=== PATIENT | male | born 1940 | race Caucasian/White ===

== ENCOUNTER → 2018-03-09 08:49 | Outpatient (CLI) | payer MEDICARE, OTHER, SELFPAY ==
--- NOTE | 2018-03-16 11:00 | PM.PFT.1 ---
Pulmonary Function Test Referral & Results Date Patient Seen: 03/09/18 Requesting provider: Marvin Bruce Results: The spirometry demonstrates an FVC of 2.20 L which is 51% of predicted. The FEV1 was measured at 1.52 L which is 40% of predicted. The FEV1/FVC ratio was 69 which is 95% of predicted. Following the administration of bronchodilator there was a 21% improvement in FEV1 and a 97% improvement in FEF 25-75%. Lung volumes show an SVC of 2.75 L which is 59% of predicted. The diffusing capacity was measured at 15.5 for which is 46% of predicted. No hemoglobin value was provided, so no correction for potential anemia could be made, if appropriate. The maximum voluntary ventilation was slightly reduced. Interpretation: This study demonstrates moderately severe obstructive lung disease with evidence of some significant benefit following bronchodilator administration There is also moderately severe restrictive lung disease present There is also a significant reduction in diffusing capacity as above. This suggest significant disease at the capillary alveolar level. Compared to PFTs performed in February 2017, spirometry is essentially unchanged as is diffusing capacity.
== END ==
PROVIDERS: Family Provider Family Medicine; PCP Family Medicine; Visit Provider Family Medicine
DX: Z79.899 Other long term (current) drug therapy (principal)
CPT/HCPCS: 94010; 94060; 94726; 94729

== ENCOUNTER 2018-07-17 08:04 | Observation (INO) | payer MEDICARE, OTHER, SELFPAY ==
[2018-07-17] VITALS (15 sets, daily range): BP systolic 121–156; BP diastolic 75–93; PULSE 67–82; RESP 16–30; TEMP 36.1–37; O2SAT 89–100; BMI 27.3
--- NOTE | 2018-07-17 08:05 | ED.SOB ---
HPI - SOB/Dyspnea General Chief Complaint: Shortness of Breath/Dyspnea Stated Complaint: SHORTNESS OF BREATH Time Seen by Provider: 07/17/18 08:05 Source: patient Mode of arrival: ambulatory Limitations: no limitations History of Present Illness 78-year-old male with a history of coronary artery disease with a 6 vessel coronary artery bypass graft, persistent AFib with a pacemaker in place on Coumadin, and also history of pleural effusions of an unknown etiology here for evaluation of approximately 1-1.5 weeks of worsening shortness of breath and decreased exercise tolerance. Patient states that last evening his symptoms worsened. He became short of breath. Is not having any chest pain. States that he has had multiple thoracentesis in the past with the last 1 being in May And this was on the right side. Patient states that his symptoms are consistent with his pleural effusions. Related Data Home Medications Medication Instructions Recorded Confirmed atorvastatin [Lipitor] 40 mg OR Q DAY #0 08/19/16 03/29/18 cyanocobalamin (vitamin B-12) 500 mcg OR Q DAY #0 08/19/16 03/29/18 isosorbide mononitrate 30 mg OR HS #0 08/19/16 03/29/18 nitroglycerin [Nitrostat] PRN #0 08/19/16 03/29/18 spironolactone [Aldactone] 12.5 mg PO QDAY #0 03/07/17 07/17/18 warfarin [Coumadin] 1 tab PO QPM #0 03/07/17 03/29/18 FERROUS SULFATE 325 mg PO QDAY #0 12/28/17 03/29/18 aspirin 81 mg PO QDAY #0 12/28/17 03/29/18 carvedilol [Coreg] 6.25 mg PO BID #0 12/28/17 03/29/18 lisinopril 2.5 mg PO BID #0 12/28/17 03/29/18 multivitamin [Multiple Vitamins] 1 tab PO QDAY #0 12/28/17 03/29/18 omeprazole 20 mg PO QDAY #0 12/28/17 03/29/18 albuterol sulfate [Ventolin HFA] 07/17/18 ferrous sulfate 1 tab PO DAILY 07/17/18 07/17/18 fluticasone [Flovent HFA] 07/17/18 furosemide 1 tab PO DAILY 07/17/18 07/17/18 terazosin 1 cap PO DAILY 07/17/18 07/17/18 Previous Rx's Medication Instructions Recorded furosemide [Lasix] 80 mg PO QDAY #30 tab 12/31/17 Allergies Allergy/AdvReac Type Severity Reaction Status Date / Time No Known Allergies Allergy Uncoded 02/01/18 12:38 Review of Systems Constitutional Denies fatigue, Denies fever(s) and Denies headache(s) ENT Ears, Nose, Mouth, and Throat: Denies headache(s) Cardiovascular Denies chest pain, Denies chest pain with activity, Denies diaphoresis, Denies pedal edema, Denies edema, Denies irregular heart rhythm, Denies leg edema, Denies lightheadedness, Reports dyspnea and Reports orthopnea Respiratory Reports cough, Reports dyspnea and Reports wheezing Gastrointestinal Gastrointestinal: Denies abdominal pain, Denies dyspepsia, Denies diarrhea, Denies nausea and Denies vomiting Genitourinary Denies dysuria and Denies flank pain Musculoskeletal Denies myalgias and Denies deformity Integumentary/Breasts Denies lesions and Denies rash Neurologic Denies headache(s) Endocrine Denies fatigue Hematologic/Lymphatic Denies easy bleeding and Denies easy bruising Allergic/Immunologic Reports wheezing PFSH Medical History Afib (Acute) CAD (coronary atherosclerotic disease) (Acute) Pleural effusion (Acute) Surgical History Hx of CABG (Acute) Social History Smoking Status: Never smoker Exam Initial Vital Signs Initial Vital Signs: Vital Signs Temperature 97.3 F L 07/17/18 08:20 Pulse Rate 82 07/17/18 08:20 Respiratory Rate 30 H 07/17/18 08:20 Blood Pressure 135/84 07/17/18 08:20 Pulse Oximetry 89 L 07/17/18 08:20 Const General: cooperative, healthy appearing, comfortable, well developed, well groomed and No acute distress Orientation: alert, awake and oriented x3 HENMT Head: normal to inspection and normocephalic Ears: hearing grossly normal bilaterally Resp Effort & Inspection: respiratory effort not decreased, not labored, respiratory distress, no stridor, tachypneic and no tripod positioning Auscultation: other ( decreased breath sounds on the right) Cardio Rate: regular rate Rhythm: regular rhythm Pulses: radial pulses present GI Inspection: non-distended Palpation: soft and No tender Skin Lesions: no lesions Rashes: no rashes Neuro General: alert, awake and oriented x3 Extrem General: No edema Psych Appearance: grossly normal and well kempt Course Orders Ordered: ED Orders 07/17/18 08:08 XR chest 1V Stat EKG-12 Lead Stat RT Consult Eval and Treat Now 07/17/18 08:15 B Type Natriuretic Peptide Stat Complete Blood Count AUTO DIFF Stat Comprehensive Metabolic Panel Stat Lipase Stat Procalcitonin Stat Troponin I Stat 07/17/18 08:51 Partial Thromboplastin Time Stat Prothrombin Time INR Stat Vital Signs - 8 hr 07/17/18 08:20 07/17/18 08:34 07/17/18 09:01 Temperature 97.3 F L Pulse Rate 82 80 80 Respiratory Rate 30 H 26 H 16 Blood Pressure 135/84 Blood Pressure [Right Arm] 124/83 121/75 Pulse Oximetry 89 L 96 96 MDM - SOB/Dyspnea Lab Data Attestation: I reviewed the patient's lab results. Result diagrams: 07/17/18 08:15 07/17/18 08:15 Lab Results 07/17/18 07/17/18 07/17/18 Range/Units 08:15 08:15 08:15 WBC 5.1 (4.5-11.0) X10^3/uL RBC 5.10 (4.5-5.9) X10^6/uL Hgb 14.5 (13.5-17.5) g/dL Hct 44.6 (41-53) % MCV 87.6 (80-100) fL MCH 28.4 (26-34) PG MCHC 32.4 (30-36) % RDW 17.0 H (11.6-14.8) % Plt Count 246 (150-400) X10^3/uL Neut % (Auto) 60.7 (50-75) % Lymph % (Auto) 18.0 L (25-40) % [place] % (Auto) 13.6 (3-14) % Eos % (Auto) 6.4 H (2-4) % Baso % (Auto) 1.3 (0-2) % Neut # (Auto) 3100 (7185-5714) /uL PT (10.1-12.7) SECONDS INR (0.9-1.3) APTT (26.4-36.2) SECONDS Sodium 144 (137-145) mmol/L Potassium 3.4 (3.4-5.1) mmol/L Chloride 102 (98-107) mmol/L Carbon Dioxide 30 (22-32) mmol/L BUN 34 H (9-20) mg/dL Creatinine 2.00 H (0.66-1.25) mg/dL Estimated GFR 32.6 L (>60) mL/min BUN/Creatinine Ratio 17.0 (6-22) Glucose 137 H (80-110) mg/dL Calcium 8.9 (8.4-10.2) mg/dL Total Bilirubin 1.5 H (0.2-1.3) mg/dL AST 34 (17-59) IU/L ALT 25 (21-72) IU/L Alkaline Phosphatase 149 H (38-126) U/L Troponin I 0.037 H (0.01-0.034) ng/mL B-Natriuretic Peptide 1340.0 H (<100) Total Protein 7.2 (6.3-8.2) g/dL Albumin 3.8 (3.5-5.0) g/dL Globulin 3.4 (1.7-4.1) g/dL Albumin/Globulin Ratio 1.1 (1.0-2.8) Lipase 59 (23-300) U/L Procalcitonin 0.06 (<0.5) ng/mL 07/17/18 Range/Units 08:51 WBC (4.5-11.0) X10^3/uL RBC (4.5-5.9) X10^6/uL Hgb (13.5-17.5) g/dL Hct (41-53) % MCV (80-100) fL MCH (26-34) PG MCHC (30-36) % RDW (11.6-14.8) % Plt Count (150-400) X10^3/uL Neut % (Auto) (50-75) % Lymph % (Auto) (25-40) % [place] % (Auto) (3-14) % Eos % (Auto) (2-4) % Baso % (Auto) (0-2) % Neut # (Auto) (5345-8513) /uL PT 22.2 H (10.1-12.7) SECONDS INR 2.0 H (0.9-1.3) APTT 36 (26.4-36.2) SECONDS Sodium (137-145) mmol/L Potassium (3.4-5.1) mmol/L Chloride (98-107) mmol/L Carbon Dioxide (22-32) mmol/L BUN (9-20) mg/dL Creatinine (0.66-1.25) mg/dL Estimated GFR (>60) mL/min BUN/Creatinine Ratio (6-22) Glucose (80-110) mg/dL Calcium (8.4-10.2) mg/dL Total Bilirubin (0.2-1.3) mg/dL AST (17-59) IU/L ALT (21-72) IU/L Alkaline Phosphatase (38-126) U/L Troponin I (0.01-0.034) ng/mL B-Natriuretic Peptide (<100) Total Protein (6.3-8.2) g/dL Albumin (3.5-5.0) g/dL Globulin (1.7-4.1) g/dL Albumin/Globulin Ratio (1.0-2.8) Lipase (23-300) U/L Procalcitonin (<0.5) ng/mL Imaging Data Chest x-ray: Radiologist's impression: PROCEDURE: XR CHEST 1V INDICATIONS: SOB TECHNIQUE: One view of the chest was acquired. COMPARISON: [facility], CR, XR CHEST 2 VIEWS, 06/16/2018, 10:37. [facility], , CHEST 1 VIEW, 02/04/2018, 22:12. FINDINGS: Surgical changes and devices: Pacemaker and sternal wires are again noted. Lungs and pleura: Bilateral pleural effusions as well as bibasilar opacities and increased pulmonary vascularity are again noted. Effusions are mildly increased particularly on the left compared to prior exam. Mediastinum: Mediastinal contours appear normal. Heart size is normal. Bones and chest wall: No suspicious bony lesions. Overlying soft tissues appear unremarkable. IMPRESSION: Increased vascular suggestive of edema with bilateral effusions and bibasilar opacities. As noted above, effusions demonstrate mild interval increase in size. Overlying opacities could represent atelectasis, focal edema or potentially developing airspace disease such as pneumonia. Dictated by: Roxanne Shelby M.D. on 07/17/2018 at 8:40 Approved by: Roxanne Shelby M.D. on 07/17/2018 at 8:4 ECG Data Attestation: I personally reviewed and interpreted this ECG as follows: Prior ECG tracings: not available for review Interpretation: Ventricularly paced ventricular rate at [address] T wave changes MDM Narrative Medical decision making narrative: patient clinically not in heart failure. Is not having any chest pain. Does have a slightly elevated troponin however no ischemic changes on his EKG. I discussed the case with Dr. Engel electronic instrument trades worker for cardiology is [facility]. He was able to look up the patient's past medical history. He stated that in this particular situation given the lack of ischemic changes on the EKG and no chest pain that they would recommend drainage of the pleural effusion 1st and continuing to trend the troponins. He stated that if his symptoms did not improve after these interventions that they would be happy to take him at [facility]. Also recommended trending the troponins. Patient with renal insufficiency however this is baseline for him. I discussed the admission with the patient. He expressed understanding and agreement with plan. Dr. Roberts will admit the patient Discharge Plan Departure Patient Disposition: Admitted As Inpatient Clinical Impression: Pleural effusion, Hypoxia, Chronic renal insufficiency Prescriptions: No Action atorvastatin [Lipitor] 40 MG tablet 40 mg OR Q DAY Qty: 0 RF: 0 cyanocobalamin (vitamin B-12) 1,000 MCG tablet extended release 500 mcg OR Q DAY Qty: 0 RF: 0 nitroglycerin [Nitrostat] 0.4 MG tablet, sublingual PRNQty: 0 RF: 0 isosorbide mononitrate 30 MG tablet extended release 24 hr 30 mg OR HS Qty: 0 RF: 0 warfarin [Coumadin] 2.5 MG tablet 1 tab PO QPM Qty: 0 RF: 0 spironolactone [Aldactone] 25 MG tablet 12.5 mg PO QDAY Qty: 0 RF: 0 lisinopril 2.5 MG tablet 2.5 mg PO BID Qty: 0 RF: 0 multivitamin [Multiple Vitamins] 1 EACH tablet 1 tab PO QDAY Qty: 0 RF: 0 omeprazole 20 MG capsule,delayed release(DR/EC) 20 mg PO QDAY Qty: 0 RF: 0 aspirin 81 MG tablet,delayed release (DR/EC) 81 mg PO QDAY Qty: 0 RF: 0 FERROUS SULFATE 325 mg PO QDAY Qty: 0 RF: 0 carvedilol [Coreg] 6.25 MG tablet 6.25 mg PO BID Qty: 0 RF: 0 furosemide [Lasix] 80 MG tablet 80 mg PO QDAY Qty: 30 RF: 0 furosemide 40 mg tablet 1 tab PO DAILY RF: 0 terazosin 1 mg capsule 1 cap PO DAILY RF: 0 ferrous sulfate 325 mg (65 mg iron) tablet 1 tab PO DAILY RF: 0 albuterol sulfate [Ventolin HFA] 90 mcg/actuation HFA aerosol inhaler RF: 0 fluticasone [Flovent HFA] 110 mcg/actuation HFA aerosol inhaler RF: 0
--- NOTE | 2018-07-17 08:08 | DI.RAD.S_ITS ---
PROCEDURE: XR CHEST 1V INDICATIONS: SOB TECHNIQUE: One view of the chest was acquired. COMPARISON: [facility], CR, XR CHEST 2 VIEWS, 06/16/2018, 10:37. [facility], CR, CHEST 1 VIEW, 02/04/2018, 22:12. FINDINGS: Surgical changes and devices: Pacemaker and sternal wires are again noted. Lungs and pleura: Bilateral pleural effusions as well as bibasilar opacities and increased pulmonary vascularity are again noted. Effusions are mildly increased particularly on the left compared to prior exam. Mediastinum: Mediastinal contours appear normal. Heart size is normal. Bones and chest wall: No suspicious bony lesions. Overlying soft tissues appear unremarkable. IMPRESSION: Increased vascular suggestive of edema with bilateral effusions and bibasilar opacities. As noted above, effusions demonstrate mild interval increase in size. Overlying opacities could represent atelectasis, focal edema or potentially developing airspace disease such as pneumonia. Dictated by: Roxanne Shelby M.D. on 07/17/2018 at 8:40 Approved by: Roxanne Shelby M.D. on 07/17/2018 at 8:42
[2018-07-17 08:30] LABS: Add Manual Diff / Slide Review NO; Basophils Percent Auto 1.3 % (0-2); Eosinophils Percent Auto 6.4 % (2-4); Hematocrit 44.6 % (41-53); Hemoglobin 14.5 g/dL (13.5-17.5); Mean Corpuscular HGB Conc 32.4 % (30-36); Mean Corpuscular Hemoglobin 28.4 PG (26-34); Mean Corpuscular Volume 87.6 fL (80-100); Monocytes Percent Auto 13.6 % (3-14); Neutrophils Absolute Auto 3100 /uL (3000-5900); Neutrophils Percent Auto 60.7 % (50-75); Platelet Count 246 X10^3/uL (150-400); White Blood Cell Count 5.1 X10^3/uL (4.5-11.0)
[2018-07-17 08:39] LABS: Alanine Aminotransferase 25 IU/L (21-72); Albumin 3.8 g/dL (3.5-5.0); Albumin Globulin Ratio 1.1 (1.0-2.8); Alkaline Phosphatase 149 U/L (38-126); Aspartate Aminotransferase 34 IU/L (17-59); Bilirubin Total 1.5 mg/dL (0.2-1.3); Blood Urea Nitrogen 34 mg/dL (9-20); Calcium 8.9 mg/dL (8.4-10.2); Carbon Dioxide 30 mmol/L (22-32); Chloride 102 mmol/L (98-107); Estimated Glomerular Filt Rate 32.6 mL/min (>60); Globulin 3.4 g/dL (1.7-4.1); Glucose 137 mg/dL (80-110); HEMOLYSIS < 15 (0-50); Lipase 59 U/L (23-300); Potassium 3.4 mmol/L (3.4-5.1); Sodium 144 mmol/L (137-145); Total Protein 7.2 g/dL (6.3-8.2)
[2018-07-17 08:50] LABS: Troponin I 0.037 ng/mL (0.01-0.034)
[2018-07-17 08:55] LABS: Procalcitonin 0.06 ng/mL (<0.5)
[2018-07-17 09:09] LABS: Prothrombin Time 22.2 SECONDS (10.1-12.7)
[2018-07-17 09:12] LABS: PTT Partial Thromboplastin Tim 36 SECONDS (26.4-36.2)
--- NOTE | 2018-07-17 11:06 | PC.NURSE ---
PT ADMITTED TO ROOM 101 TELE FLOOR CARE PT- HE HAS VERY DIMINISHED BREATH SOUNDS AND REPORTS FEELING EXACTLY THIS WAY PRIOR TO PREVIOUS THORACENTESIS ( TOTAL OF 7 PER PT) ELEVATED BNP AND REQUIRING 1-2 LITERS OF O2 TO MAINTAIN SPO2 OF 90%- CARDIAC RHYTHM IS AFIB WITH BBB AND FREQ PVC'S- ALSO REPORTS HAVING RECENT CARDIAC ABLATION AT [facility] ( [place])- DENIES PAIN AND IS SALINE LOCKED- FULLY ORIENTED TO BED CONTROL AND USE OF CALL LIGHT
--- NOTE | 2018-07-17 12:37 | PM.HP.1 ---
History of Present Illness Date Patient Seen: 07/17/18 Chief complaint: SHORTNESS OF BREATH Narrative: Patient has a history of ischemic cardiomyopathy, CAD s/p 6 vessel bipass, AICD/Pacer who has had recurent pleural effusions. He was symptomatic again with shortness of breath. Patient presented to the ED for evaluation and found to have a moderate left sided pleural effusion. Patient has had an extensive work up for this without obvious etiology. He is admitted for ultrasound guided thoracentsis. Patient is chronically on coumadin, his INR is elevated at 2.0, will give him VITK to reverse and schedule thoracentesis for either today or tomorrow. Patient History Medical History Afib (Acute) CAD (coronary atherosclerotic disease) (Acute) Pleural effusion (Acute) Surgical History Hx of CABG (Acute) Family & Social History Family History: Reviewed 07/17/18 by Tarah Roberts MD Social History: household members none Prior Living Arrangements Apartment/Condo Safety & Behavioral: Feels Safe in Current No Environment Been Physically Hurt or No Threatened By a Person Suicidal Ideation Description None Suicide Plan Description No Plan Tobacco & Substance use: Smoking Status Former smoker alcohol intake former alcohol intake frequency holiday/special occasion Substance Use Type does not use Meds Home Medications Medication Instructions Recorded Confirmed Type atorvastatin [Lipitor] 40 mg OR QPM #0 08/19/16 07/17/18 History cyanocobalamin (vitamin B-12) 500 mcg OR Q DAY #0 08/19/16 07/17/18 History isosorbide mononitrate 30 mg OR HS #0 08/19/16 07/17/18 History nitroglycerin [Nitrostat] 1 tab SUBLINGUAL PRN PRN #0 08/19/16 07/17/18 History spironolactone [Aldactone] 12.5 mg PO QDAY #0 03/07/17 07/17/18 History warfarin [Coumadin] 1 tab PO QPM #0 03/07/17 07/17/18 History aspirin 81 mg PO QDAY #0 12/28/17 07/17/18 History carvedilol [Coreg] 3.125 mg PO BID #0 12/28/17 07/17/18 History lisinopril 4 tab PO BID #0 12/28/17 07/17/18 History multivitamin [Multiple Vitamins] 1 tab PO QDAY #0 12/28/17 07/17/18 History albuterol sulfate [Ventolin HFA] 1 puff INHALATION DIRECTED 07/17/18 07/17/18 History ferrous sulfate 1 tab PO DAILY 07/17/18 07/17/18 History fluticasone [Flovent HFA] 1 puff INHALATION DIRECTED 07/17/18 07/17/18 History torsemide 40 mg PO DAILY 07/17/18 07/17/18 History Allergies Allergy/AdvReac Type Severity Reaction Status Date / Time No Known Drug Allergies Allergy Verified 07/17/18 12:37 Review of Systems Review of Systems All systems reviewed & are unremarkable except as noted in HPI and below Exam Vital Signs (past 8 hours): - 07/17/18 08:20 07/17/18 08:34 07/17/18 09:01 Temperature 97.3 F L Pulse Rate 82 80 80 Respiratory Rate 30 H 26 H 16 Blood Pressure 135/84 Blood Pressure [Right Arm] 124/83 121/75 Pulse Oximetry 89 L 96 96 07/17/18 09:46 07/17/18 09:53 07/17/18 10:51 Temperature Pulse Rate 80 67 Respiratory Rate 24 21 Blood Pressure 156/93 H Blood Pressure [Right Arm] 131/89 Pulse Oximetry 96 100 98 07/17/18 11:15 07/17/18 11:54 Temperature Pulse Rate 80 80 Respiratory Rate 16 Blood Pressure 131/90 Blood Pressure [Right Arm] Pulse Oximetry 92 93 Oxygen Delivery Method Nasal Cannula Oxygen Flow Rate 1 Narrative Exam Narrative: Pleasant male in No acute distress HEENT: NC/ AT, EOMI, Oropharynx : clear, neck supple Lungs: decreased breath sounds on right CV: RRR nl Sl S2 2/6 ALICIA Abd: soft/ non tender/ non distended/ no HSM Ext: no edema Skin: no lesions, left hand with small abrasion Neuro: non focal Psychiatric: normal mentation, mood, no delusions or hallucinations Objective Labs Result Diagrams: 07/17/18 08:15 07/17/18 08:15 Labs: Laboratory Results - last 24 hr 07/17/18 07/17/18 07/17/18 08:15 08:15 08:15 WBC 5.1 RBC 5.10 Hgb 14.5 Hct 44.6 MCV 87.6 MCH 28.4 MCHC 32.4 RDW 17.0 H Plt Count 246 Neut % (Auto) 60.7 Lymph % (Auto) 18.0 L [place] % (Auto) 13.6 Eos % (Auto) 6.4 H Baso % (Auto) 1.3 Neut # (Auto) 3100 PT INR APTT Sodium 144 Potassium 3.4 Chloride 102 Carbon Dioxide 30 BUN 34 H Creatinine 2.00 H Estimated GFR 32.6 L BUN/Creatinine Ratio 17.0 Glucose 137 H Calcium 8.9 Total Bilirubin 1.5 H AST 34 ALT 25 Alkaline Phosphatase 149 H Troponin I 0.037 H B-Natriuretic Peptide 1340.0 H Total Protein 7.2 Albumin 3.8 Globulin 3.4 Albumin/Globulin Ratio 1.1 Lipase 59 Procalcitonin 0.06 07/17/18 08:51 WBC RBC Hgb Hct MCV MCH MCHC RDW Plt Count Neut % (Auto) Lymph % (Auto) [place] % (Auto) Eos % (Auto) Baso % (Auto) Neut # (Auto) PT 22.2 H INR 2.0 H APTT 36 Sodium Potassium Chloride Carbon Dioxide BUN Creatinine Estimated GFR BUN/Creatinine Ratio Glucose Calcium Total Bilirubin AST ALT Alkaline Phosphatase Troponin I B-Natriuretic Peptide Total Protein Albumin Globulin Albumin/Globulin Ratio Lipase Procalcitonin Assessment & Plan (1) Hypoxia: Problem details: Suspect secondary to pleural effusion. Patient is scheduled for ultrasound guided thoracentesis Current visit: Yes Status: Acute (2) Chronic renal insufficiency: Problem details: Will hold toresemide today Hold GHADA-I Start hydralazine and isorsorbide dinitrate for afterload reduction Qualifiers: Chronic kidney disease stage: unspecified stage Qualified Code(s): N18.9 - Chronic kidney disease, unspecified Current visit: Yes Status: Acute (3) Chronic systolic heart failure: Problem details: As above Current visit: Yes Status: Acute (4) Ischemic cardiomyopathy: Problem details: Mildly elevated troponin, will trend Current visit: Yes Status: Acute (5) Pleural effusion: Problem details: Ultrasound guided thoracentesis today after INR reveresed Current visit: Yes Status: Acute Plan: Assessment/Plan Narrative: Full code
[2018-07-17] MEDS: PHYTONADIONE (VIT K1) 5 MG in DEXTROSE 5 % IN WATER 50 ML 101 ML IV (12:58)
[2018-07-17 15:07] LABS: Prothrombin Time 22.2 SECONDS (10.1-12.7)
[2018-07-17 15:19] LABS: Creatine Kinase 253 U/L (55-170)
[2018-07-17 15:24] LABS: BUN Creatinine Ratio 16.8 (6-22); Blood Urea Nitrogen 32 mg/dL (9-20); Calcium 8.6 mg/dL (8.4-10.2); Carbon Dioxide 31 mmol/L (22-32); Chloride 102 mmol/L (98-107); Estimated Glomerular Filt Rate 34.5 mL/min (>60); Glucose 169 mg/dL (80-110); HEMOLYSIS < 15 (0-50); Potassium 3.4 mmol/L (3.4-5.1); Sodium 143 mmol/L (137-145)
[2018-07-17 15:28] LABS: Troponin I 0.019 ng/mL (0.01-0.034)
[2018-07-17 15:34] LABS: CKMB % Relative Index 1.3 % (1.5-5.0); Creatine Kinase MB 3.29 ng/mL (<2.37)
[2018-07-17] MEDS: ISOSORBIDE DINITRATE 20 MG TABLET PO ×2 (16:17→19:41)
[2018-07-17] MEDS: HYDRALAZINE 25 MG TABLET PO (16:17)
[2018-07-17 18:37] LABS: Prothrombin Time 21.8 SECONDS (10.1-12.7)
--- NOTE | 2018-07-17 19:22 | RT ---
Patient states that his primary doctor d/c'd his Flovent and he does not wish to take it during this stay.
[2018-07-17] MEDS: ATORVASTATIN 20 MG TABLET 40 MG PO (19:41)
[2018-07-17] MEDS: CARVEDILOL 3.125 MG TABLET PO (19:41)
[2018-07-18] VITALS (7 sets, daily range): BP systolic 98–131; BP diastolic 66–94; PULSE 70–110; RESP 16–20; TEMP 35.9–37; O2SAT 90–96
--- NOTE | 2018-07-18 | DI.US.S_ITS ---
PROCEDURE: US THORACENTESIS INDICATIONS: PLEURAL EFFUSION TECHNIQUE: The indications, alternatives, benefits, risks, and complications of the procedure were explained to the patient. Written informed consent was obtained and placed in the chart. The chest was examined sonographically, and an appropriate site was chosen for thoracentesis. The skin was prepared and draped in the usual sterile fashion, and 1% lidocaine was infiltrated from the skin down through the pleural surface. A 19-gauge catheter-covered needle was then introduced into the pleural space, the catheter was advanced and the needle was withdrawn, and thereafter pleural fluid was aspirated. The catheter was then removed and a dressing was applied. COMPARISON: [facility], THORACENTESIS, 12/30/2017, 15:03. FINDINGS: Access site: Right hemithorax. Needle: One-Step centesis catheter with introducer needle. Fluid volume and description: 2300 mL, clear. Fluid sent for diagnostic testing: no Medications: 1% lidocaine for local anaesthesia. Complications: None; post-procedural chest radiograph is pending to assess for pneumothorax. IMPRESSION: Successful ultrasound-guided thoracentesis. Dictated by: Princess Emerson M.D. on 07/18/2018 at 15:34 Approved by: Princess Emerson M.D. on 07/18/2018 at 15:34
--- NOTE | 2018-07-18 | DI.RAD.S_ITS ---
PROCEDURE: XR CHEST 1V INDICATIONS: POST THORACENTESIS TECHNIQUE: One view of the chest was acquired. COMPARISON: [facility], , XR CHEST 1V, 07/17/2018, 8:13. FINDINGS: Surgical changes and devices: Posterior 2 changes are present related to prior median sternotomy. A left-sided cardiac pacer such as a goiter apparatus is evident. Lungs and pleura: There continue to be bibasilar opacities that partially obscure evaluation of the diaphragms. The overall appearance probably similar to the previous exam, given differences in imaging technique. No definitive pneumothorax is evident. Mediastinum: Mediastinal contours appear normal. Heart size is enlarged. Bones and chest wall: No suspicious bony lesions. Overlying soft tissues appear unremarkable. IMPRESSION: 1. No definite pneumothorax. 2. Bilateral pleural effusions and corresponding atelectasis. 3. Cardiomegaly. Dictated by: Shekhar Colin M.D. on 07/18/2018 at 14:48 Approved by: Shekhar Colin M.D. on 07/18/2018 at 14:59
[2018-07-18] MEDS: ALBUTEROL HFA 60 PUFF/8 GM INH INH (05:08)
[2018-07-18 05:14] LABS: INR 1.6 (0.9-1.3); Prothrombin Time 17.3 SECONDS (10.1-12.7)
[2018-07-18] MEDS: ISOSORBIDE DINITRATE 20 MG TABLET PO ×2 (08:32→15:44)
[2018-07-18] MEDS: HYDRALAZINE 25 MG TABLET PO (08:32)
[2018-07-18] MEDS: TORSEMIDE 10 MG TABLET 40 MG PO (08:32)
[2018-07-18] MEDS: SPIRONOLACTONE 25 MG TABLET 12.5 MG PO (08:32)
[2018-07-18] MEDS: SODIUM CHLORIDE 0.9% FLUSH 10 ML IV (08:32)
[2018-07-18] MEDS: CARVEDILOL 3.125 MG TABLET PO (08:32)
[2018-07-18] MEDS: PHYTONADIONE (VIT K1) 5 MG in DEXTROSE 5 % IN WATER 50 ML 101 ML IV (08:32)
[2018-07-18] MEDS: ASPIRIN EC 81 MG TABLET PO (08:33)
[2018-07-18 11:30] LABS: INR 1.5 (0.9-1.3); Prothrombin Time 16.3 SECONDS (10.1-12.7)
[2018-07-18 12:39] LABS: BUN Creatinine Ratio 16.3 (6-22); Blood Urea Nitrogen 31 mg/dL (9-20); Calcium 8.3 mg/dL (8.4-10.2); Carbon Dioxide 34 mmol/L (22-32); Chloride 103 mmol/L (98-107); Estimated Glomerular Filt Rate 34.5 mL/min (>60); Glucose 93 mg/dL (80-110); HEMOLYSIS < 15 (0-50); Sodium 145 mmol/L (137-145)
--- NOTE | 2018-07-18 14:31 | CM.DANOTE ---
Discharge Planning/Care Management CM Discharge Assessment Start: 07/18/18 14:29 Freq: Status: Active Protocol: Document 07/18/18 14:29 (Rec: 07/18/18 14:31 [id number]) Discharge Planning Assessment Assigned Rfid Analyst IAN Beverly Advance Directives? Yes Advance Directives on File No History Provided By Patient Medical Record Has Patient been admitted in last 30 No days? Prior Living Arrangements Apartment/Condo Household Members none Type of transporation used prior to Drives own vehicle admit Independent with ADL's Yes Is patient alert and oriented? Yes Barriers to Discharge No Referrals Initiated None needed Review Status In Process Please Provide Date Initial DC 07/18/18 Assessment Was Performed Next Review Type Continued Stay Review Patient to discharge home after having ultrasound guided thoracentesis. This will be completed when INR level is below 1.5. No anticipated discharge needs.
--- NOTE | 2018-07-18 16:00 | PM.DS.1 ---
History of Present Illness Chief complaint: SHORTNESS OF BREATH Narrative: Patient has a history of ischemic cardiomyopathy, CAD s/p 6 vessel bipass, AICD/Pacer who has had recurent pleural effusions. He was symptomatic again with shortness of breath. Patient presented to the ED for evaluation and found to have a moderate left sided pleural effusion. Patient has had an extensive work up for this without obvious etiology. He is admitted for ultrasound guided thoracentsis. Patient is chronically on coumadin, his INR is elevated at 2.0, will give him VITK to reverse and schedule thoracentesis for either today or tomorrow. Discharge Providers Date of admission: 07/17/18 09:49 Primary care physician: Nasir Wu MD Discharge provider: Tarah Roberts MD Summary Discharge Diagnosis: Pleural Effusion Atrial Fibrillation CAD S/p CABG s/p ablation Chronic Renal Failure-Stage 3 Hypokalemia Hospital Course: Patient was admitted for shortness of breath. He has required thoracentesis 7 times for recurrent pleural effusions. Patient has had complete work up with no etiology of the effusions. Patient underwent thoracentesis after reversal of his INR. He tolerated the procedure well. 2.3 Liters of fluid was removed. Follow up Chest Xray revealed no evidence of pneumothorax. Patient was deemed appropriate for discharge home. Status at Discharge Functional status at discharge: independent ambulation Overall status at discharge: patient is back to baseline Time Spent with Patient Less than 30 minutes Exam Vital Signs (past 8 hours): - 07/18/18 08:40 07/18/18 08:44 07/18/18 12:47 Temperature 97.5 F L 98 F Pulse Rate 80 80 Respiratory Rate 18 18 Blood Pressure 131/94 H 98/66 Pulse Oximetry 90 L 90 L 91 Oxygen Delivery Method Room Air Oxygen Flow Rate 0 Narrative Exam Narrative: Pleasant gentlemen in NAD Lungs: clear to auscultation CV: irregularly, irregular nl Sl S2 2/6 ALICIA ABd: soft/ non tender Ext 1+ edema Objective Labs Result Diagrams: 07/17/18 08:15 07/18/18 11:06 Labs: Laboratory Results - last 24 hr 07/17/18 07/18/18 07/18/18 18:07 04:48 11:02 PT 21.8 H 17.3 H 16.3 H INR 2.0 H 1.6 H 1.5 H Sodium Potassium Chloride Carbon Dioxide BUN Creatinine Estimated GFR BUN/Creatinine Ratio Glucose Calcium 07/18/18 11:06 PT INR Sodium 145 Potassium 3.0 L Chloride 103 Carbon Dioxide 34 H BUN 31 H Creatinine 1.90 H Estimated GFR 34.5 L BUN/Creatinine Ratio 16.3 Glucose 93 Calcium 8.3 L Discharge Plan Discharge Plan Discharge Problem: Pleural effusion, Hypoxia, Chronic renal insufficiency Patient Disposition: Home Transportation: Private vehicle Discharge comment: Follow up with [facility] two days for repeat PRotime. Resume usual Coumadin dosing Discharge Med Rec/Prescriptions Prescriptions: New hydralazine 25 mg Tablet 25 mg PO TID 30 Days Qty: 90 RF: 0 isosorbide dinitrate 20 mg Tablet 20 mg PO TID 90 Days Qty: 270 RF: 0 spironolactone 25 mg Tablet 12.5 mg PO DAILY 30 Days RF: 0 torsemide 10 mg Tablet 40 mg PO DAILY 30 Days RF: 0 Continue atorvastatin [Lipitor] 40 MG tablet 40 mg OR QPM Qty: 0 RF: 0 cyanocobalamin (vitamin B-12) 1,000 MCG tablet extended release 500 mcg OR Q DAY Qty: 0 RF: 0 nitroglycerin [Nitrostat] 0.4 MG tablet, sublingual 1 tab Sublingual PRN PRN (Reason: Chest Pain) Qty: 0 RF: 0 isosorbide mononitrate 30 MG tablet extended release 24 hr 30 mg OR HS Qty: 0 RF: 0 warfarin [Coumadin] 2.5 MG tablet 1 tab PO QPM Qty: 0 RF: 0 spironolactone [Aldactone] 25 MG tablet 12.5 mg PO QDAY Qty: 0 RF: 0 multivitamin [Multiple Vitamins] 1 EACH tablet 1 tab PO QDAY Qty: 0 RF: 0 aspirin 81 MG tablet,delayed release (DR/EC) 81 mg PO QDAY Qty: 0 RF: 0 carvedilol [Coreg] 6.25 MG tablet 3.125 mg PO BID Qty: 0 RF: 0 ferrous sulfate 325 mg (65 mg iron) tablet 1 tab PO DAILY RF: 0 albuterol sulfate [Ventolin HFA] 90 mcg/actuation HFA aerosol inhaler 1 puff Inhalation DIRECTED RF: 0 fluticasone [Flovent HFA] 110 mcg/actuation HFA aerosol inhaler 1 puff Inhalation DIRECTED RF: 0 torsemide 20 mg Tablet 40 mg PO DAILY RF: 0 Discontinued lisinopril 2.5 MG tablet 4 tab PO BID Qty: 0 RF: 0 Provider Discharge Instructions Diet: Carb-consistent/Diabetic and Low-sodium Food texture: Regular Activity: as tolerated Discharge Data Primary Care Provider: Nasir Wu Attending Provider: Tarah Roberts Admit Date/Time: 07/17/18 09:49
[2018-07-18] MEDS: POTASSIUM CHLORIDE 20 MEQ TAB 40 MEQ PO (16:14)
--- NOTE | 2018-07-18 16:43 | CM.DANOTE ---
1640 - Patient discharged home per orders. Discharge instructions and medications gone over with patient including times of last doses. All questions answered. States he will follow up with Michael alba as ordered. IV and court monitor removed per protocol. All belongings and paperwork sent with patient. Patient escorted out of unit in good condition.
== END 2018-07-18 16:45 | disposition home or self-care (01) ==
LOC: ED 09:49 → ICU 10:49
PROVIDERS: Admitting Provider Internal Medicine; Emergency Provider Emergency Medicine; Family Provider Family Medicine; PCP Family Medicine; Visit Provider Internal Medicine
DX: J90 Pleural effusion, not elsewhere classified (principal); R06.02 Shortness of breath; R09.02 Hypoxemia; I25.10 Atherosclerotic heart disease of native coronary artery without angina pectoris; N18.9 Chronic kidney disease, unspecified; Z95.0 Presence of cardiac pacemaker; I48.1 Persistent atrial fibrillation; Z79.01 Long term (current) use of anticoagulants; Z95.1 Presence of aortocoronary bypass graft
CPT/HCPCS: 32555; 36415; 36591; 71045; 80048; 80053; 82550; 82553; 83690; 83880; 84145; 84484; 85025; 85610; 85730; 87797; 93005; 93041; 94640; 94760; 99284; 99285; G0378; J3430

== ENCOUNTER 2018-09-13 19:08 | Emergency (ER) | payer MEDICARE, OTHER, SELFPAY ==
[2018-07-17 10:22] VITALS: BMI 27.3
--- NOTE | 2018-09-13 19:14 | ED.URI ---
HPI - URI/Sore Throat <Kenna Varela PA-C - Last Filed: 09/13/18 21:33> General Chief Complaint: Upper Respiratory Symptoms Stated Complaint: coughing for 2 weeks, cant sleep, infusions Time Seen by Provider: 09/13/18 19:13 Source: patient Mode of arrival: ambulatory Limitations: no limitations History of Present Illness HPI Narrative: This 78-year-old male comes in today due to persistent cough for 2 weeks. He states that cough is wet, and more bothersome at night. It wakes him up from sleep intermittently and this is why he comes in. He states he is also having a lot of runny nose. He states that when he is not coughing, he can breathe fine. He does not have any trouble falling asleep on his back or sleeping until cough wakes him up. He states he has had temps to 99 range at home. He denies any sinus pain, earache, or sore throat. He is not having chest pain or wheeze. He states his appetite is normal. He states that he is not wearing his compression stockings today and notices a little bit of leg swelling but he states this has not been increased overall in the last couple of weeks. He states that his legs can be somewhat sore with walking, otherwise has not noticed any new leg pain or calf pain. He denies other complaints on systems review. States he does feel like he has gotten progressively worse. He has a history of idiopathic pleural effusion. States that he went for a 2nd opinion at the [facility] on this and was told heart disease is severe enough that he would need a transplant. He does have a pacemaker. He states that no specific reason has been found for his recurrent pleural effusions. He has had thoracentesis 8 times removing more than 2 L each time, thinks this is gradually starting to worsen again (states he is requiring thoracentesis more frequently). Related Data Home Medications Medication Instructions Recorded Confirmed atorvastatin [Lipitor] 40 mg OR QPM #0 08/19/16 07/17/18 cyanocobalamin (vitamin B-12) 500 mcg OR Q DAY #0 08/19/16 07/17/18 isosorbide mononitrate 30 mg OR HS #0 08/19/16 07/17/18 nitroglycerin [Nitrostat] 1 tab SUBLINGUAL PRN PRN #0 08/19/16 07/17/18 spironolactone [Aldactone] 12.5 mg PO QDAY #0 03/07/17 07/17/18 warfarin [Coumadin] 1 tab PO QPM #0 03/07/17 07/17/18 aspirin 81 mg PO QDAY #0 12/28/17 07/17/18 carvedilol [Coreg] 3.125 mg PO BID #0 12/28/17 07/17/18 multivitamin [Multiple Vitamins] 1 tab PO QDAY #0 12/28/17 07/17/18 albuterol sulfate 1 puff INHALATION DIRECTED 07/17/18 07/17/18 ferrous sulfate 1 tab PO DAILY 07/17/18 07/17/18 fluticasone 1 puff INHALATION DIRECTED 07/17/18 07/17/18 torsemide 40 mg PO DAILY 07/17/18 07/17/18 Previous Rx's Medication Instructions Recorded isosorbide dinitrate 20 mg PO TID 90 Days #270 tab 07/18/18 levofloxacin [Levaquin] 750 mg PO DAILY 7 Days #4 tab 09/13/18 Allergies Allergy/AdvReac Type Severity Reaction Status Date / Time No Known Drug Allergies Allergy Verified 09/13/18 19:23 Review of Systems <Kenna Varela PA-C - Last Filed: 09/13/18 21:33> Review of Systems All systems reviewed & are unremarkable except as noted in HPI and below Exam <Kenna Varela PA-C - Last Filed: 09/13/18 21:33> Narrative Exam Narrative: GENERAL APPEARANCE: Patient sitting comfortably, in no distress. HEAD: No sinus TTP. EYES: PERRL, EOMI. ORAL CAVITY: Normal oropharynx. THROAT: Clear. NECK/THYROID: Neck supple, full range of motion, no cervical lymphadenopathy. LUNGS: Breath sounds are coarse throughout in the mid to lower lobes with some scattered crackles, no wheeze. Intermittent wet cough on exam. HEART: RRR without murmur, nl S1, S2, no S3 or S4. EXTREMITIES: 1+ pitting, symmetric bilaterally, varicosities noted. Mild tenderness with palpation throughout the lower legs including calves and shins Initial Vital Signs Initial Vital Signs: Vital Signs Temperature 97.9 F 09/13/18 19:23 Pulse Rate 93 H 11/21/18 19:23 Respiratory Rate 17 09/13/18 19:23 Blood Pressure 126/63 09/13/18 19:23 Pulse Oximetry 96 09/13/18 19:23 <Les Morin DO - Last Filed: 09/13/18 21:38> Initial Vital Signs Initial Vital Signs: Vital Signs Temperature 97.9 F 09/13/18 19:23 Pulse Rate 93 H 09/13/18 19:23 Respiratory Rate 17 09/13/18 19:23 Blood Pressure 126/63 09/13/18 19:23 Pulse Oximetry 96 09/13/18 19:23 Course <Kenna Varela PA-C - Last Filed: 09/13/18 21:33> Additional Information: I consulted on-call hospitalist nurse practitioner as patient felt like his symptoms had progressively worsened and felt that he would need hospitalization. She reviewed findings advised concerned that patient does not meet inpatient criteria. I reviewed this with patient and agree he is not hypoxic, vital signs not abnormal. Follow-up may be difficult for him during the holiday weekend but he is comfortable with plan to return if any acutely worsening symptoms. He has renal insufficiency and so was given a dose of Levaquin tonight and can take next dose on Tuesday. Side effects reviewed. We did give him a prepack of [place], which he took without side effects previously, to help with nighttime cough if needed for the next couple of days. Advised follow-up with PCP on Tuesday or at the latest by Tuesday to recheck this as well as his INR. He is agreeable Orders Ordered: ED Orders 09/13/18 19:25 XR chest 2V Stat 09/13/18 19:40 B Type Natriuretic Peptide Stat Complete Blood Count AUTO DIFF Stat Comprehensive Metabolic Panel Stat Lactate (Lactic Acid) Stat Prothrombin Time INR Stat Discontinued Medications Hydrocodone Bitart/Acetaminophen (Vicodin Prepack) 1 bottle MISC SEEINSTR ONE Stop: 09/13/18 20:54 Last Admin: 09/13/18 21:01 Dose: 1 bottle Levofloxacin (Levaquin) 750 mg PO NOW ONE Stop: 09/13/18 20:54 Last Admin: 09/13/18 21:02 Dose: 750 mg Vital Signs - 8 hr 09/13/18 19:23 09/13/18 19:52 09/13/18 21:12 Temperature 97.9 F 97.9 F Pulse Rate 93 H 93 H 90 Respiratory Rate 17 17 17 Blood Pressure 126/63 126/63 122/62 Pulse Oximetry 96 96 97 <Les Morin DO - Last Filed: 09/13/18 21:38> Orders Ordered: ED Orders 09/13/18 19:25 XR chest 2V Stat 09/13/18 19:40 B Type Natriuretic Peptide Stat Complete Blood Count AUTO DIFF Stat Comprehensive Metabolic Panel Stat Lactate (Lactic Acid) Stat Prothrombin Time INR Stat Discontinued Medications Hydrocodone Bitart/Acetaminophen (Vicodin Prepack) 1 bottle MISC SEEINSTR ONE Stop: 09/13/18 20:54 Last Admin: 09/13/18 21:01 Dose: 1 bottle Levofloxacin (Levaquin) 750 mg PO NOW ONE Stop: 09/13/18 20:54 Last Admin: 09/13/18 21:02 Dose: 750 mg Vital Signs - 8 hr 09/13/18 19:23 09/13/18 19:52 09/13/18 21:12 Temperature 97.9 F 97.9 F Pulse Rate 93 H 93 H 90 Respiratory Rate 17 17 17 Blood Pressure 126/63 126/63 122/62 Pulse Oximetry 96 96 97 MDM - URI/Sore Throat <Kenna Varela PA-C - Last Filed: 09/13/18 21:33> Lab Data Attestation: I reviewed the patient's lab results. Result diagrams: 09/13/18 19:40 09/13/18 19:40 Lab Results 09/13/18 09/13/18 09/13/18 Range/Units 19:40 19:40 19:40 WBC 11.9 H (4.5-11.0) X10^3/uL RBC 4.80 (4.5-5.9) X10^6/uL Hgb 13.3 L (13.5-17.5) g/dL Hct 41.4 (41-53) % MCV 86.2 (80-100) fL MCH 27.7 (26-34) PG MCHC 32.2 (30-36) % RDW 18.0 H (11.6-14.8) % Plt Count 255 (150-400) X10^3/uL Neut % (Auto) 79.7 H (50-75) % Lymph % (Auto) 6.9 L (25-40) % [place] % (Auto) 11.4 (3-14) % Eos % (Auto) 1.6 L (2-4) % Baso % (Auto) 0.4 (0-2) % Neut # (Auto) 9500 H (8014-7392) /uL PT (10.1-12.7) SECONDS INR (0.9-1.3) Sodium 139 (137-145) mmol/L Potassium 3.4 (3.4-5.1) mmol/L Chloride 100 (98-107) mmol/L Carbon Dioxide 28 (22-32) mmol/L BUN 35 H (9-20) mg/dL Creatinine 1.60 H (0.66-1.25) mg/dL Estimated GFR 42.1 L (>60) mL/min BUN/Creatinine Ratio 21.9 (6-22) Glucose 94 (80-110) mg/dL Lactate 1.1 (0.7-2.1) mmol/L Calcium 8.4 (8.4-10.2) mg/dL Total Bilirubin 1.5 H (0.2-1.3) mg/dL AST 23 (17-59) IU/L ALT 23 (21-72) IU/L Alkaline Phosphatase 161 H (38-126) U/L B-Natriuretic Peptide 1150.0 H (<100) Total Protein 7.1 (6.3-8.2) g/dL Albumin 3.8 (3.5-5.0) g/dL Globulin 3.3 (1.7-4.1) g/dL Albumin/Globulin Ratio 1.2 (1.0-2.8) 09/13/18 Range/Units 19:40 WBC (4.5-11.0) X10^3/uL RBC (4.5-5.9) X10^6/uL Hgb (13.5-17.5) g/dL Hct (41-53) % MCV (80-100) fL MCH (26-34) PG MCHC (30-36) % RDW (11.6-14.8) % Plt Count (150-400) X10^3/uL Neut % (Auto) (50-75) % Lymph % (Auto) (25-40) % [place] % (Auto) (3-14) % Eos % (Auto) (2-4) % Baso % (Auto) (0-2) % Neut # (Auto) (3844-7220) /uL PT 16.3 H (10.1-12.7) SECONDS INR 1.5 H (0.9-1.3) Sodium (137-145) mmol/L Potassium (3.4-5.1) mmol/L Chloride (98-107) mmol/L Carbon Dioxide (22-32) mmol/L BUN (9-20) mg/dL Creatinine (0.66-1.25) mg/dL Estimated GFR (>60) mL/min BUN/Creatinine Ratio (6-22) Glucose (80-110) mg/dL Lactate (0.7-2.1) mmol/L Calcium (8.4-10.2) mg/dL Total Bilirubin (0.2-1.3) mg/dL AST (17-59) IU/L ALT (21-72) IU/L Alkaline Phosphatase (38-126) U/L B-Natriuretic Peptide (<100) Total Protein (6.3-8.2) g/dL Albumin (3.5-5.0) g/dL Globulin (1.7-4.1) g/dL Albumin/Globulin Ratio (1.0-2.8) Imaging Data Chest x-ray: Radiologist's impression: [address] [address] XRay Report Signed Patient: Raymond Gamble CMR#: [id number] : [id number]:[id number] Age/Sex: 78 / MDate of Service: 09/13/18 Loc: ED Accession Number: [id number] Procedure: XR chest 2V Ordering Provider: Kenna Varela P.A-C PROCEDURE: XR CHEST 2V INDICATIONS: cough, h/o pleural effusions TECHNIQUE: 2 views of the chest were acquired. COMPARISON: [facility], , XR CHEST 1V, 07/18/2018, 15:00. FINDINGS: Surgical changes and devices: Left-sided pacer. Median sternotomy. Lungs and pleura: No pneumothorax. Decreased edema small right pleural effusion. Decreased, trace left pleural effusion. Moderate right and mild left basilar airspace opacity. Mediastinum: Mediastinal contours are normal. Heart size is mildly enlarged. Bones and chest wall: No suspicious bony abnormalities. Soft tissues appear unremarkable. IMPRESSION: 1. Bibasilar pneumonia with right greater than left pleural effusions. Follow up plain films of the chest are recommended to ensure resolution, and to exclude underlying or central malignancy. Dictated by: Anais Coronel M.D. on 09/13/2018 at 19:40 Approved by: Anais Coronel M.D. on 09/13/2018 at 19:41 <Les Morin DO - Last Filed: 09/13/18 21:38> Lab Data Lab Results 09/13/18 09/13/18 09/13/18 Range/Units 19:40 19:40 19:40 WBC 11.9 H (4.5-11.0) X10^3/uL RBC 4.80 (4.5-5.9) X10^6/uL Hgb 13.3 L (13.5-17.5) g/dL Hct 41.4 (41-53) % MCV 86.2 (80-100) fL MCH 27.7 (26-34) PG MCHC 32.2 (30-36) % RDW 18.0 H (11.6-14.8) % Plt Count 255 (150-400) X10^3/uL Neut % (Auto) 79.7 H (50-75) % Lymph % (Auto) 6.9 L (25-40) % [place] % (Auto) 11.4 (3-14) % Eos % (Auto) 1.6 L (2-4) % Baso % (Auto) 0.4 (0-2) % Neut # (Auto) 9500 H (5333-3543) /uL PT (10.1-12.7) SECONDS INR (0.9-1.3) Sodium 139 (137-145) mmol/L Potassium 3.4 (3.4-5.1) mmol/L Chloride 100 (98-107) mmol/L Carbon Dioxide 28 (22-32) mmol/L BUN 35 H (9-20) mg/dL Creatinine 1.60 H (0.66-1.25) mg/dL Estimated GFR 42.1 L (>60) mL/min BUN/Creatinine Ratio 21.9 (6-22) Glucose 94 (80-110) mg/dL Lactate 1.1 (0.7-2.1) mmol/L Calcium 8.4 (8.4-10.2) mg/dL Total Bilirubin 1.5 H (0.2-1.3) mg/dL AST 23 (17-59) IU/L ALT 23 (21-72) IU/L Alkaline Phosphatase 161 H (38-126) U/L B-Natriuretic Peptide 1150.0 H (<100) Total Protein 7.1 (6.3-8.2) g/dL Albumin 3.8 (3.5-5.0) g/dL Globulin 3.3 (1.7-4.1) g/dL Albumin/Globulin Ratio 1.2 (1.0-2.8) // Range/Units 19:40 WBC (4.5-11.0) X10^3/uL RBC (4.5-5.9) X10^6/uL Hgb (13.5-17.5) g/dL Hct (41-53) % MCV (80-100) fL MCH (26-34) PG MCHC (30-36) % RDW (11.6-14.8) % Plt Count (150-400) X10^3/uL Neut % (Auto) (50-75) % Lymph % (Auto) (25-40) % [place] % (Auto) (3-14) % Eos % (Auto) (2-4) % Baso % (Auto) (0-2) % Neut # (Auto) (8738-5753) /uL PT 16.3 H (10.1-12.7) SECONDS INR 1.5 H (0.9-1.3) Sodium (137-145) mmol/L Potassium (3.4-5.1) mmol/L Chloride (98-107) mmol/L Carbon Dioxide (22-32) mmol/L BUN (9-20) mg/dL Creatinine (0.66-1.25) mg/dL Estimated GFR (>60) mL/min BUN/Creatinine Ratio (6-22) Glucose (80-110) mg/dL Lactate (0.7-2.1) mmol/L Calcium (8.4-10.2) mg/dL Total Bilirubin (0.2-1.3) mg/dL AST (17-59) IU/L ALT (21-72) IU/L Alkaline Phosphatase (38-126) U/L B-Natriuretic Peptide (<100) Total Protein (6.3-8.2) g/dL Albumin (3.5-5.0) g/dL Globulin (1.7-4.1) g/dL Albumin/Globulin Ratio (1.0-2.8) Discharge Plan Departure Patient Disposition: Home Clinical Impression: Pneumonia Discharge Date/Time: 09/13/18 21:14 Interventions: ED Discharge Assessment Last Done: 09/13/18 21:12 Instructions: DI for Pneumonia -- Adult Activity Restrictions/Additional Instructions: Your x-ray today showed that you do have some pneumonia in both lungs. Your pleural effusion is not worse. You should return as we talked about if you have any worsening symptoms, or new symptoms such as high fever or new difficulty breathing. 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 I have given you a few hydrocodone/acetaminophen pills since you had them previously while in the hospital and no difficulty with them. This may be helpful for your cough and you can take 1 at night time if needed. Please call your PCP office 1st thing on Tuesday so that you can be seen for follow-up at the latest by 1st of next week. (You need to have your coumadin level/INR checked by then as well since the antibiotic can affect it). Prescriptions: New levofloxacin [Levaquin] 750 mg tablet 750 mg PO DAILY 7 Days Qty: 4 RF: 0 No Action atorvastatin [Lipitor] 40 MG tablet 40 mg OR QPM Qty: 0 RF: 0 cyanocobalamin (vitamin B-12) 1,000 MCG tablet extended release 500 mcg OR Q DAY Qty: 0 RF: 0 nitroglycerin [Nitrostat] 0.4 MG tablet, sublingual 1 tab Sublingual PRN PRN (Reason: Chest Pain) Qty: 0 RF: 0 isosorbide mononitrate 30 MG tablet extended release 24 hr 30 mg OR HS Qty: 0 RF: 0 warfarin [Coumadin] 2.5 MG tablet 1 tab PO QPM Qty: 0 RF: 0 spironolactone [Aldactone] 25 MG tablet 12.5 mg PO QDAY Qty: 0 RF: 0 multivitamin [Multiple Vitamins] 1 EACH tablet 1 tab PO QDAY Qty: 0 RF: 0 aspirin 81 MG tablet,delayed release (DR/EC) 81 mg PO QDAY Qty: 0 RF: 0 carvedilol [Coreg] 6.25 MG tablet 3.125 mg PO BID Qty: 0 RF: 0 ferrous sulfate 325 mg (65 mg iron) tablet 1 tab PO DAILY RF: 0 albuterol sulfate 90 mcg/actuation HFA aerosol inhaler 1 puff Inhalation DIRECTED RF: 0 fluticasone 110 mcg/actuation HFA aerosol inhaler 1 puff Inhalation DIRECTED RF: 0 torsemide 20 mg Tablet 40 mg PO DAILY RF: 0 isosorbide dinitrate 20 mg Tablet 20 mg PO TID 90 Days Qty: 270 RF: 0 Referrals: Concepcion Junior [Non-Staff] - <Les Morin DO - Last Filed: 09/13/18 21:38> Cosign ED Attending Cosbrendenature Attestation: I was immediately available in the department for consultation. Documentation has been reviewed. I agree with assessment and plan.
[2018-09-13 19:23] VITALS: BP 126/63; PULSE 93; RESP 17; TEMP 36.6; O2SAT 96
--- NOTE | 2018-09-13 19:25 | DI.RAD.S_ITS ---
PROCEDURE: XR CHEST 2V INDICATIONS: cough, h/o pleural effusions TECHNIQUE: 2 views of the chest were acquired. COMPARISON: [facility], CR, XR CHEST 1V, 07/18/2018, 15:00. FINDINGS: Surgical changes and devices: Left-sided pacer. Median sternotomy. Lungs and pleura: No pneumothorax. Decreased edema small right pleural effusion. Decreased, trace left pleural effusion. Moderate right and mild left basilar airspace opacity. Mediastinum: Mediastinal contours are normal. Heart size is mildly enlarged. Bones and chest wall: No suspicious bony abnormalities. Soft tissues appear unremarkable. IMPRESSION: 1. Bibasilar pneumonia with right greater than left pleural effusions. Follow up plain films of the chest are recommended to ensure resolution, and to exclude underlying or central malignancy. Dictated by: Anais Coronel M.D. on 09/13/2018 at 19:40 Approved by: Anais Coronel M.D. on 09/13/2018 at 19:41
[2018-09-13 19:52] VITALS: BP 126/63; PULSE 93; RESP 17; TEMP 36.6; O2SAT 96
[2018-09-13 19:55] LABS: Add Manual Diff / Slide Review NO; Basophils Percent Auto 0.4 % (0-2); Eosinophils Percent Auto 1.6 % (2-4); Hematocrit 41.4 % (41-53); Hemoglobin 13.3 g/dL (13.5-17.5); Lymphocytes Percent Auto 6.9 % (25-40); Mean Corpuscular HGB Conc 32.2 % (30-36); Mean Corpuscular Hemoglobin 27.7 PG (26-34); Mean Corpuscular Volume 86.2 fL (80-100); Monocytes Percent Auto 11.4 % (3-14); Neutrophils Absolute Auto 9500 /uL (3000-5900); Neutrophils Percent Auto 79.7 % (50-75); Platelet Count 255 X10^3/uL (150-400); White Blood Cell Count 11.9 X10^3/uL (4.5-11.0)
[2018-09-13 20:03] LABS: INR 1.5 (0.9-1.3); Prothrombin Time 16.3 SECONDS (10.1-12.7)
[2018-09-13 20:06] LABS: Lactate (Lactic Acid) 1.1 mmol/L (0.7-2.1)
[2018-09-13 20:08] LABS: Alanine Aminotransferase 23 IU/L (21-72); Albumin 3.8 g/dL (3.5-5.0); Albumin Globulin Ratio 1.2 (1.0-2.8); Alkaline Phosphatase 161 U/L (38-126); Aspartate Aminotransferase 23 IU/L (17-59); BUN Creatinine Ratio 21.9 (6-22); Bilirubin Total 1.5 mg/dL (0.2-1.3); Blood Urea Nitrogen 35 mg/dL (9-20); Calcium 8.4 mg/dL (8.4-10.2); Carbon Dioxide 28 mmol/L (22-32); Chloride 100 mmol/L (98-107); Estimated Glomerular Filt Rate 42.1 mL/min (>60); Globulin 3.3 g/dL (1.7-4.1); Glucose 94 mg/dL (80-110); HEMOLYSIS 16 (0-50); Potassium 3.4 mmol/L (3.4-5.1); Sodium 139 mmol/L (137-145); Total Protein 7.1 g/dL (6.3-8.2)
[2018-09-13] MEDS: HYDROCODONE/ACET 5/325 PREPACK 1 BOTTLE MISC (21:01)
[2018-09-13] MEDS: levoFLOXacin 250 MG TABLET 750 MG PO (21:02)
[2018-09-13 21:12] VITALS: BP 122/62; PULSE 90; RESP 17; O2SAT 97
== END 2018-09-13 21:14 | disposition home or self-care (01) ==
PROVIDERS: Emergency Provider Internal Medicine; Family Provider Family Medicine; PCP Family Medicine
DX: J18.9 Pneumonia, unspecified organism (principal)
CPT/HCPCS: 71046; 80053; 83605; 83880; 85025; 85610; 99282; 99284

== ENCOUNTER 2018-09-16 21:51 | Emergency (ER) | payer MEDICARE, OTHER, SELFPAY ==
[2018-07-17 10:22] VITALS: BMI 27.3
[2018-09-16 22:21] VITALS: BP 123/76; PULSE 68; RESP 20; TEMP 36.7; O2SAT 95; BMI 27.7
--- NOTE | 2018-09-16 22:43 | DI.RAD.S_ITS ---
PROCEDURE: XR CHEST 2V INDICATIONS: cough, SOB worsening TECHNIQUE: 2 views of the chest were acquired. COMPARISON: [facility], CR, XR CHEST 2V, 09/13/2018, 19:29. FINDINGS: Surgical changes and devices: Pacemaker and sternal wires, including unchanged fractured top sternal wire. Lungs and pleura: Persistent appearance of bilateral effusions and bibasilar opacities, right greater than left Mediastinum: Mediastinal contours are normal. Heart size is normal. Bones and chest wall: No suspicious bony abnormalities. Soft tissues appear unremarkable. IMPRESSION: Stable interval exam demonstrates bibasilar effusions and opacities likely consistent with pneumonia. Recommend interval followup to document resolution and exclude presence of underlying mass lesion. Dictated by: Roxanne Shelby M.D. on 09/17/2018 at 8:15 Approved by: Roxanne Shelby M.D. on 09/17/2018 at 8:16
[2018-09-16 23:09] LABS: Add Manual Diff / Slide Review NO; Basophils Percent Auto 0.2 % (0-2); Eosinophils Percent Auto 3.1 % (2-4); Hematocrit 40.2 % (41-53); Hemoglobin 13.1 g/dL (13.5-17.5); Lymphocytes Percent Auto 6.7 % (25-40); Mean Corpuscular HGB Conc 32.6 % (30-36); Mean Corpuscular Hemoglobin 28.1 PG (26-34); Monocytes Percent Auto 7.1 % (3-14); Neutrophils Absolute Auto 7100 /uL (3000-5900); Neutrophils Percent Auto 82.9 % (50-75); Platelet Count 241 X10^3/uL (150-400); Red Blood Cell Count 4.68 X10^6/uL (4.5-5.9); Red Cell Distribution Width 18.1 % (11.6-14.8); White Blood Cell Count 8.5 X10^3/uL (4.5-11.0)
[2018-09-16 23:16] LABS: Lactate (Lactic Acid) 0.9 mmol/L (0.7-2.1)
[2018-09-16 23:37] LABS: Procalcitonin 0.11 ng/mL (<0.5)
--- NOTE | 2018-09-16 23:44 | ED.RECABL ---
HPI - Recheck/Abnormal Lab/Rx General Chief Complaint: Recheck/Abnormal Lab/Rx Stated Complaint: PNEUMONIA Time Seen by Provider: 09/16/18 22:09 Source: patient and family Mode of arrival: ambulatory Limitations: no limitations History of Present Illness HPI narrative: 78M with complex medical history returns for re-evaluation of ongoing cough with occasional productive sputum. He is not dizzy nor weak or lightheaded. He denies any fever or chills. He has had no nausea, vomiting or diarrhea. He does have a cough and states he was given some pain pills which help suppress his cough and he really is only hoping for that. He states on the whole he feels much better Related Data Home Medications Medication Instructions Recorded Confirmed atorvastatin [Lipitor] 40 mg OR QPM #0 08/19/16 07/17/18 cyanocobalamin (vitamin B-12) 500 mcg OR Q DAY #0 08/19/16 07/17/18 isosorbide mononitrate 30 mg OR HS #0 08/19/16 07/17/18 nitroglycerin [Nitrostat] 1 tab SUBLINGUAL PRN PRN #0 08/19/16 07/17/18 spironolactone [Aldactone] 12.5 mg PO QDAY #0 03/07/17 07/17/18 warfarin [Coumadin] 1 tab PO QPM #0 03/07/17 07/17/18 aspirin 81 mg PO QDAY #0 12/28/17 07/17/18 carvedilol [Coreg] 3.125 mg PO BID #0 12/28/17 07/17/18 multivitamin [Multiple Vitamins] 1 tab PO QDAY #0 12/28/17 07/17/18 albuterol sulfate 1 puff INHALATION DIRECTED 07/17/18 07/17/18 ferrous sulfate 1 tab PO DAILY 07/17/18 07/17/18 fluticasone 1 puff INHALATION DIRECTED 07/17/18 07/17/18 torsemide 40 mg PO DAILY 07/17/18 07/17/18 Previous Rx's Medication Instructions Recorded isosorbide dinitrate 20 mg PO TID 90 Days #270 tab 07/18/18 levofloxacin [Levaquin] 750 mg PO DAILY 7 Days #4 tab 09/13/18 hydrocodone-acetaminophen 1 tab PO Q4-6H PRN #14 tab 09/17/18 Allergies Allergy/AdvReac Type Severity Reaction Status Date / Time No Known Drug Allergies Allergy Verified 09/13/18 19:23 Review of Systems Review of Systems All systems reviewed & are unremarkable except as noted in HPI and below Constitutional Denies chills, Denies fever(s), Denies lethargy and Denies weakness Eyes Denies change in vision, Denies eye discharge, Denies irritation and Denies loss of vision ENT Ears, Nose, Mouth, and Throat: Denies change in voice, Denies neck pain and Denies sore throat Cardiovascular Denies chest pain, Denies irregular heart rhythm, Denies lightheadedness, Denies palpitations, Denies dyspnea, Denies dyspnea on exertion and Denies orthopnea Respiratory Reports cough, Denies dyspnea, Denies dyspnea on exertion and Denies wheezing Gastrointestinal Gastrointestinal: Denies abdominal pain, Denies change in bowel habits, Denies diarrhea, Denies nausea and Denies vomiting Genitourinary Denies hematuria, Denies flank pain, Denies urinary incontinence and Denies urinary urgency Musculoskeletal Denies neck pain Integumentary/Breasts Denies pruritus, Denies erythema, Denies rash and Denies wounds Neurologic Denies confusion, Denies loss of vision and Denies weakness Psychiatric Denies anxiety, Denies confusion, Denies depression, Denies homicidal ideation and Denies suicidal ideation Endocrine Denies palpitations Hematologic/Lymphatic Denies easy bruising Allergic/Immunologic Denies wheezing PFSH Medical History Pleural effusion (Chronic) Ischemic cardiomyopathy (Chronic) Afib (Chronic) CAD (coronary atherosclerotic disease) (Chronic) Pleural effusion (Chronic) Surgical History Hx of CABG (Chronic) Family History Father Myocardial infarction Stroke Mother Colostomy and enterostomy complications Social History household members: none Smoking Status: Former smoker alcohol intake: former Exam Narrative Exam Narrative: GENERAL: Pleasant 78-year-old male in no obvious distress, resting comfortably in his room HEAD: Atraumatic. Normocephalic. No temporal or scalp tenderness. EYES: Pupils equal round and reactive. Extraocular motions intact. No scleral icterus. No injection or drainage. ENT: Nose without bleeding, purulent drainage or septal hematoma. Throat without erythema, tonsillar hypertrophy or exudate. Uvula midline. Airway patent. NECK: Trachea midline. No JVD or lymphadenopathy. Supple, nontender, no meningeal signs. CARDIOVASCULAR: Regular rate and rhythm without murmurs, gallops, or rubs. RESPIRATORY: Clear to auscultation. Breath sounds equal bilaterally. No wheezes, rales, or rhonchi. GASTROINTESTINAL: Abdomen soft, non-tender, nondistended. No hepato-splenomegaly, or palpable masses. No guarding. EXTREMITIES: No clubbing, cyanosis, or edema. No joint tenderness, effusion, or edema noted. BACK: Nontender without deformity or crepitance. No flank tenderness. NEURO: AOx3. SKIN: No rash or erythema. Initial Vital Signs Initial Vital Signs: Vital Signs Temperature 98.1 F 09/16/18 22:21 Pulse Rate 68 09/16/18 22:21 Respiratory Rate 20 09/16/18 22:21 Blood Pressure 123/76 09/16/18 22:21 Pulse Oximetry 95 09/16/18 22:21 Course Orders Ordered: Discontinued Medications Hydrocodone Bitart/Acetaminophen (Vicodin Prepack) 1 bottle MISC SEEINSTR ONE Stop: 09/17/18 01:27 Last Admin: 09/17/18 01:39 Dose: 1 bottle Vital Signs - 8 hr 09/17/18 01:48 Temperature 98.2 F Pulse Rate 71 Respiratory Rate 20 Blood Pressure 107/66 Pulse Oximetry 95 [facility] - Recheck/Abnormal Lab/Rx Medical Records Attestation: I reviewed the patient's medical records. Lab Data Attestation: I reviewed the patient's lab results. Result diagrams: 09/16/18 22:55 09/16/18 22:43 Lab Results 09/16/18 09/16/18 09/16/18 Range/Units 22:43 22:55 22:55 WBC 8.5 (4.5-11.0) X10^3/uL RBC 4.68 (4.5-5.9) X10^6/uL Hgb 13.1 L (13.5-17.5) g/dL Hct 40.2 L (41-53) % MCV 86.0 (80-100) fL MCH 28.1 (26-34) PG MCHC 32.6 (30-36) % RDW 18.1 H (11.6-14.8) % Plt Count 241 (150-400) X10^3/uL Neut % (Auto) 82.9 H (50-75) % Lymph % (Auto) 6.7 L (25-40) % Victoria % (Auto) 7.1 (3-14) % Eos % (Auto) 3.1 (2-4) % Baso % (Auto) 0.2 (0-2) % Neut # (Auto) 7100 H (5185-1214) /uL Sodium 145 (137-145) mmol/L Potassium 3.7 (3.4-5.1) mmol/L Chloride 105 (98-107) mmol/L Carbon Dioxide 28 (22-32) mmol/L BUN 36 H (9-20) mg/dL Creatinine 1.70 H (0.66-1.25) mg/dL Estimated GFR 39.3 L (>60) mL/min BUN/Creatinine Ratio 21.2 (6-22) Glucose 124 H (80-110) mg/dL Lactate (0.7-2.1) mmol/L Calcium 8.4 (8.4-10.2) mg/dL Magnesium 2.1 (1.6-2.3) mg/dL Total Creatine Kinase 41 L (55-170) U/L CK-MB (CK-2) TNP CK-MB (CK-2) Rel Index TNP Troponin I 0.055 H (0.01-0.034) ng/mL B-Natriuretic Peptide 1550.0 H (<100) Procalcitonin 0.11 (<0.5) ng/mL 09/16/18 Range/Units 22:55 WBC (4.5-11.0) X10^3/uL RBC (4.5-5.9) X10^6/uL Hgb (13.5-17.5) g/dL Hct (41-53) % MCV (80-100) fL MCH (26-34) PG MCHC (30-36) % RDW (11.6-14.8) % Plt Count (150-400) X10^3/uL Neut % (Auto) (50-75) % Lymph % (Auto) (25-40) % Victoria % (Auto) (3-14) % Eos % (Auto) (2-4) % Baso % (Auto) (0-2) % Neut # (Auto) (9970-4589) /uL Sodium (137-145) mmol/L Potassium (3.4-5.1) mmol/L Chloride (98-107) mmol/L Carbon Dioxide (22-32) mmol/L BUN (9-20) mg/dL Creatinine (0.66-1.25) mg/dL Estimated GFR (>60) mL/min BUN/Creatinine Ratio (6-22) Glucose (80-110) mg/dL Lactate 0.9 (0.7-2.1) mmol/L Calcium (8.4-10.2) mg/dL Magnesium (1.6-2.3) mg/dL Total Creatine Kinase (55-170) U/L CK-MB (CK-2) CK-MB (CK-2) Rel Index Troponin I (0.01-0.034) ng/mL B-Natriuretic Peptide (<100) Procalcitonin (<0.5) ng/mL MDM Narrative Medical decision making narrative: Patient feels improvement over prior visit and states he largely feels quite well and is hoping to obtain some more of the pills that help suppress his cough. His imaging, labs, and exam are all moving in the right direction. He requests DC and will follow up closely with his doctor Discharge Plan Departure Patient Disposition: Home Clinical Impression: Pneumonia, CHF (congestive heart failure) Discharge Date/Time: 09/17/18 01:50 Interventions: ED Discharge Assessment Last Done: 09/17/18 01:48 Instructions: DI for Pneumonia -- Adult Activity Restrictions/Additional Instructions: *You have been diagnosed with [ acute CHF, pneumonia] *What to do: *Take medications as directed *Follow up with your primary care provider in 2-3 days, call for an appointment. Let them know you were seen in the Emergency Department and that we ask that you be seen in follow up *Return to ER if you should have any new, worsening or concerning symptoms Prescriptions: New hydrocodone-acetaminophen 5-325 mg tablet 1 tab PO Q4-6H PRN (Reason: pain) Qty: 14 RF: 0 No Action atorvastatin [Lipitor] 40 MG tablet 40 mg OR QPM Qty: 0 RF: 0 cyanocobalamin (vitamin B-12) 1,000 MCG tablet extended release 500 mcg OR Q DAY Qty: 0 RF: 0 nitroglycerin [Nitrostat] 0.4 MG tablet, sublingual 1 tab Sublingual PRN PRN (Reason: Chest Pain) Qty: 0 RF: 0 isosorbide mononitrate 30 MG tablet extended release 24 hr 30 mg OR HS Qty: 0 RF: 0 warfarin [Coumadin] 2.5 MG tablet 1 tab PO QPM Qty: 0 RF: 0 spironolactone [Aldactone] 25 MG tablet 12.5 mg PO QDAY Qty: 0 RF: 0 multivitamin [Multiple Vitamins] 1 EACH tablet 1 tab PO QDAY Qty: 0 RF: 0 aspirin 81 MG tablet,delayed release (DR/EC) 81 mg PO QDAY Qty: 0 RF: 0 carvedilol [Coreg] 6.25 MG tablet 3.125 mg PO BID Qty: 0 RF: 0 ferrous sulfate 325 mg (65 mg iron) tablet 1 tab PO DAILY RF: 0 albuterol sulfate 90 mcg/actuation HFA aerosol inhaler 1 puff Inhalation DIRECTED RF: 0 fluticasone 110 mcg/actuation HFA aerosol inhaler 1 puff Inhalation DIRECTED RF: 0 torsemide 20 mg Tablet 40 mg PO DAILY RF: 0 isosorbide dinitrate 20 mg Tablet 20 mg PO TID 90 Days Qty: 270 RF: 0 levofloxacin [Levaquin] 750 mg tablet 750 mg PO DAILY 7 Days Qty: 4 RF: 0
[2018-09-17] LABS: BUN Creatinine Ratio 21.2 (6-22); Blood Urea Nitrogen 36 mg/dL (9-20); Calcium 8.4 mg/dL (8.4-10.2); Carbon Dioxide 28 mmol/L (22-32); Chloride 105 mmol/L (98-107); Creatine Kinase 41 U/L (55-170); Estimated Glomerular Filt Rate 39.3 mL/min (>60); Glucose 124 mg/dL (80-110); HEMOLYSIS < 15 (0-50); Magnesium 2.1 mg/dL (1.6-2.3); Potassium 3.7 mmol/L (3.4-5.1); Sodium 145 mmol/L (137-145)
[2018-09-17 00:12] LABS: Troponin I 0.055 ng/mL (0.01-0.034)
[2018-09-17] MEDS: HYDROCODONE/ACET 5/325 PREPACK 1 BOTTLE MISC (01:39)
[2018-09-17 01:48] VITALS: BP 107/66; PULSE 71; RESP 20; TEMP 36.8; O2SAT 95
== END 2018-09-17 01:50 | disposition home or self-care (01) ==
PROVIDERS: Emergency Provider Emergency Medicine; Family Provider Family Medicine; PCP Family Medicine
DX: I50.9 Heart failure, unspecified (principal); J18.9 Pneumonia, unspecified organism
CPT/HCPCS: 36591; 71046; 80048; 82550; 82553; 83605; 83735; 83880; 84145; 84484; 85025; 87040; 93005; 99282; 99285

== ENCOUNTER 2018-10-18 14:19 | Emergency (ER) | payer MEDICARE, OTHER, SELFPAY ==
[2018-07-17 10:22] VITALS: BMI 27.3
[2018-10-18] MEDS: SODIUM CHLORIDE 0.9% 1,000 ML 250 ML IV (14:15)
--- NOTE | 2018-10-18 14:33 | DI.RAD.S_ITS ---
PROCEDURE: XR CHEST 1V INDICATIONS: right pleural effusion TECHNIQUE: One view of the chest was acquired. COMPARISON: [facility], CR, XR CHEST 2V, 09/16/2018, 22:59. [facility], CR, XR CHEST 2V, 09/13/2018, 19:29. FINDINGS: Surgical changes and devices: Pacemaking device and dual chamber leads normal. Sternotomy wires.. Lungs and pleura: No pleural effusions or pneumothorax. Lungs are abnormal, with alveolar consolidation again noted at the right lung base, and what appears to be a slight pleural effusion in that area. Mediastinum: Mediastinal contours appear normal. Heart size is normal. Bones and chest wall: No suspicious bony lesions. Overlying soft tissues appear unremarkable. IMPRESSION: Persistent alveolar consolidation right lower lobe with slight subpulmonic pleural effusion but slowly improving from the comparison plain films from late August of this year. Dictated by: Armando Oro M.D. on 10/18/2018 at 14:57 Approved by: Armando Oro M.D. on 10/18/2018 at 14:58
--- NOTE | 2018-10-18 14:35 | ED.SOB ---
HPI - SOB/Dyspnea General Chief Complaint: Syncope Stated Complaint: Hypotension Time Seen by Provider: 10/18/18 14:33 Source: patient and EMS Mode of arrival: EMS Limitations: no limitations History of Present Illness Patient is a madi 78-year-old male presents after a near syncopal episode. He was actually released from [facility] last evening is after procedure for multiple repeated right-sided pleural effusions. He felt fine when he went home. However today he was hiking on a computer felt extremely lightheaded and almost passed out. EMS found him be quite hypotensive which improved with fluids. He is overall feeling much better. Related Data Home Medications Medication Instructions Recorded Confirmed atorvastatin [Lipitor] 40 mg OR QPM #0 08/19/16 07/17/18 cyanocobalamin (vitamin B-12) 500 mcg OR Q DAY #0 08/19/16 07/17/18 isosorbide mononitrate 30 mg OR HS #0 08/19/16 07/17/18 nitroglycerin [Nitrostat] 1 tab SUBLINGUAL PRN PRN #0 08/19/16 07/17/18 spironolactone [Aldactone] 12.5 mg PO QDAY #0 03/07/17 07/17/18 warfarin [Coumadin] 1 tab PO QPM #0 03/07/17 07/17/18 aspirin 81 mg PO QDAY #0 12/28/17 07/17/18 carvedilol [Coreg] 3.125 mg PO BID #0 12/28/17 07/17/18 multivitamin [Multiple Vitamins] 1 tab PO QDAY #0 12/28/17 07/17/18 albuterol sulfate 1 puff INHALATION DIRECTED 07/17/18 07/17/18 ferrous sulfate 1 tab PO DAILY 07/17/18 07/17/18 fluticasone 1 puff INHALATION DIRECTED 07/17/18 07/17/18 torsemide 40 mg PO DAILY 07/17/18 07/17/18 Previous Rx's Medication Instructions Recorded hydrocodone-acetaminophen 1 tab PO Q4-6H PRN #14 tab 09/17/18 Allergies Allergy/AdvReac Type Severity Reaction Status Date / Time No Known Drug Allergies Allergy Verified 09/13/18 19:23 Review of Systems Review of Systems All systems reviewed & are unremarkable except as noted in HPI and below Constitutional Denies chills, Denies fever(s), Denies lethargy and Denies weakness Cardiovascular Denies chest pain, Denies irregular heart rhythm, Denies lightheadedness, Denies palpitations and Denies orthopnea Respiratory Reports as per HPI Gastrointestinal Gastrointestinal: Denies abdominal pain, Denies change in bowel habits, Denies diarrhea, Denies nausea and Denies vomiting Musculoskeletal Denies back pain, Denies muscle weakness, Denies numbness and Denies tingling Neurologic Denies numbness, Denies tingling and Denies weakness Endocrine Denies palpitations [facility] Medical History Pleural effusion (Chronic) Ischemic cardiomyopathy (Chronic) Afib (Chronic) CAD (coronary atherosclerotic disease) (Chronic) Pleural effusion (Chronic) Surgical History Hx of CABG (Chronic) Family History Father Myocardial infarction Stroke Mother Colostomy and enterostomy complications Social History household members: none Smoking Status: Former smoker alcohol intake: former Exam Initial Vital Signs Initial Vital Signs: Vital Signs Temperature 98 F 10/18/18 14:40 Pulse Rate 71 10/18/18 14:40 Respiratory Rate 20 10/18/18 14:40 Blood Pressure 89/41 L 10/18/18 14:40 Pulse Oximetry 93 10/18/18 14:40 GENERAL: Alert pleasant elderly male no acute distress HEENT: Head atraumatic,EOMI, pupils reactive, face symmetric, CARDIOVASCULAR: Regular rate and rhythm without murmurs, rubs or gallops. RESPIRATORY: Decreased breath sounds on right but no respiratory distress no wheezes rales or rhonchi incision site on right side is clean and dry no erythema or infection ABDOMEN: Soft, nontender. Normoactive bowel sounds all 4 quadrants. No guarding or rebound. EXTREMITIES: Normal range of motion, no clubbing or edema. Neurovascularly intact NEUROLOGICAL: Alert and oriented x4.Normal gait and speech. Cranial nerves II through XII grossly intact. SKIN: Warm, dry, no laceration, no petechiae, no rashes or lesions. Course Orders Ordered: ED Orders 12/26/18 14:05 Complete Blood Count AUTO DIFF Stat Comprehensive Metabolic Panel Stat Lipase Stat Partial Thromboplastin Time Stat Prothrombin Time INR Stat Troponin & CK Cardiac Panel Stat 10/18/18 14:33 XR chest 1V Stat EKG-12 Lead Stat Discontinued Medications Sodium Chloride (Normal Saline 0.9%) 1,000 mls @ 250 mls/hr IV CONT KRUNAL Last Admin: 10/18/18 14:15 Dose: 250 mls/hr Vital Signs - 8 hr 10/18/18 14:40 10/18/18 16:00 10/18/18 16:55 Temperature 98 F Pulse Rate 71 70 55 L Respiratory Rate 20 20 20 Blood Pressure 89/41 L 104/60 Blood Pressure [Right Arm] 107/67 Pulse Oximetry 93 94 99 MDM - SOB/Dyspnea Lab Data Attestation: I reviewed the patient's lab results. Result diagrams: 10/18/18 14:05 10/18/18 14:05 Lab Results 10/18/18 10/18/18 10/18/18 Range/Units 14:05 14:05 14:05 WBC 7.4 (4.5-11.0) X10^3/uL RBC 4.87 (4.5-5.9) X10^6/uL Hgb 13.8 (13.5-17.5) g/dL Hct 41.9 (41-53) % MCV 86.0 (80-100) fL MCH 28.4 (26-34) PG MCHC 33.0 (30-36) % RDW 17.8 H (11.6-14.8) % Plt Count 309 (150-400) X10^3/uL Neut % (Auto) 66.5 (50-75) % Lymph % (Auto) 11.1 L (25-40) % Vance % (Auto) 15.5 H (3-14) % Eos % (Auto) 6.2 H (2-4) % Baso % (Auto) 0.7 (0-2) % Neut # (Auto) 4900 (1621-0250) /uL PT 28.0 H (10.1-12.7) SECONDS INR 2.4 H (0.9-1.3) APTT 43 H D (26.4-36.2) SECONDS Sodium 141 (137-145) mmol/L Potassium 4.4 (3.4-5.1) mmol/L Chloride 99 (98-107) mmol/L Carbon Dioxide 30 (22-32) mmol/L BUN 53 H (9-20) mg/dL Creatinine 2.50 H (0.66-1.25) mg/dL Estimated GFR 25.2 L (>60) mL/min BUN/Creatinine Ratio 21.2 (6-22) Glucose 137 H (80-110) mg/dL Calcium 8.3 L (8.4-10.2) mg/dL Total Bilirubin 1.3 (0.2-1.3) mg/dL AST 37 (17-59) IU/L ALT 13 L (21-72) IU/L Alkaline Phosphatase 190 H (38-126) U/L Total Creatine Kinase 67 (55-170) U/L CK-MB (CK-2) TNP CK-MB (CK-2) Rel Index TNP Troponin I 0.036 H (0.01-0.034) ng/mL Total Protein 7.2 (6.3-8.2) g/dL Albumin 3.6 (3.5-5.0) g/dL Globulin 3.6 (1.7-4.1) g/dL Albumin/Globulin Ratio 1.0 (1.0-2.8) Lipase 123 (23-300) U/L Imaging Data Chest x-ray: Radiologist's impression: [place] [address] XRay Report Signed Patient: Raymond Gamble MR#: [id number] : 1940 Acct:[id number] Age/Sex: 78 / M Date of Service: 10/18/18 Loc: ED Accession Number: [id number] Procedure: XR chest 1V Ordering Provider: Lourdes Trejo D.O. PROCEDURE: XR CHEST 1V INDICATIONS: right pleural effusion TECHNIQUE: One view of the chest was acquired. COMPARISON: [facility], XR CHEST 2V, 09/16/2018, 22:59. [facility], XR CHEST 2V, 09/13/2018, 19:29. FINDINGS: Surgical changes and devices: Pacemaking device and dual chamber leads normal. Sternotomy wires.. Lungs and pleura: No pleural effusions or pneumothorax. Lungs are abnormal, with alveolar consolidation again noted at the right lung base, and what appears to be a slight pleural effusion in that area. Mediastinum: Mediastinal contours appear normal. Heart size is normal. Bones and chest wall: No suspicious bony lesions. Overlying soft tissues appear unremarkable. IMPRESSION: Persistent alveolar consolidation right lower lobe with slight subpulmonic pleural effusion but slowly improving from the comparison plain films from late August of this year. Dictated by: Armando Oro M.D. on 10/18/2018 at 14:57 ECG Data Attestation: I personally reviewed and interpreted this ECG as follows: Prior ECG tracings: available for review Interpretation: AFib low voltage way [address] changes PVC similar to previous EKGs MDM Narrative Medical decision making narrative: Patient's blood pressure quickly improved with IV fluids. Blood work does show slightly increase in creatinine from his previous stay here. He is tolerating oral fluids. He has ambulation trial he is able walk with steady gait no dizziness or lightheadedness. He is feeling much better ready and able to go home. Discharge Plan Departure Patient Disposition: Home Clinical Impression: Syncope due to orthostatic hypotension Discharge Date/Time: 10/18/18 16:57 Interventions: ED Discharge Assessment Last Done: 10/18/18 16:55 Instructions: DI for Syncope in Adults (Fainting), DI for Dehydration -- Adult Activity Restrictions/Additional Instructions: *You have been diagnosed with dehydration, near a *What to do: You do seem a little dehydrated, increase fluids *Continue to take medications as directed *Follow up with your primary care provider in 2-3 days *Return to ER if you should have lightheadedness dizziness, passing out, chest pain, shortness of breath or any new, worsening or concerning symptoms Prescriptions: No Action atorvastatin [Lipitor] 40 MG tablet 40 mg OR QPM Qty: 0 RF: 0 cyanocobalamin (vitamin B-12) 1,000 MCG tablet extended release 500 mcg OR Q DAY Qty: 0 RF: 0 nitroglycerin [Nitrostat] 0.4 MG tablet, sublingual 1 tab Sublingual PRN PRN (Reason: Chest Pain) Qty: 0 RF: 0 isosorbide mononitrate 30 MG tablet extended release 24 hr 30 mg OR HS Qty: 0 RF: 0 warfarin [Coumadin] 2.5 MG tablet 1 tab PO QPM Qty: 0 RF: 0 spironolactone [Aldactone] 25 MG tablet 12.5 mg PO QDAY Qty: 0 RF: 0 multivitamin [Multiple Vitamins] 1 EACH tablet 1 tab PO QDAY Qty: 0 RF: 0 aspirin 81 MG tablet,delayed release (DR/EC) 81 mg PO QDAY Qty: 0 RF: 0 carvedilol [Coreg] 6.25 MG tablet 3.125 mg PO BID Qty: 0 RF: 0 ferrous sulfate 325 mg (65 mg iron) tablet 1 tab PO DAILY RF: 0 albuterol sulfate 90 mcg/actuation HFA aerosol inhaler 1 puff Inhalation DIRECTED RF: 0 fluticasone 110 mcg/actuation HFA aerosol inhaler 1 puff Inhalation DIRECTED RF: 0 torsemide 20 mg Tablet 40 mg PO DAILY RF: 0 hydrocodone-acetaminophen 5-325 mg tablet 1 tab PO Q4-6H PRN (Reason: pain) Qty: 14 RF: 0 Referrals: Nasir Wu MD [Primary Care Provider] -
[2018-10-18 14:40] VITALS: BP 89/41; PULSE 71; RESP 20; TEMP 36.6; O2SAT 93; BMI 27.6
[2018-10-18 14:42] LABS: Add Manual Diff / Slide Review NO; Basophils Percent Auto 0.7 % (0-2); Eosinophils Percent Auto 6.2 % (2-4); Hematocrit 41.9 % (41-53); Hemoglobin 13.8 g/dL (13.5-17.5); INR 2.4 (0.9-1.3); Lymphocytes Percent Auto 11.1 % (25-40); Mean Corpuscular Hemoglobin 28.4 PG (26-34); Monocytes Percent Auto 15.5 % (3-14); Neutrophils Absolute Auto 4900 /uL (1500-7000); Neutrophils Percent Auto 66.5 % (50-75); Platelet Count 309 X10^3/uL (150-400); Red Blood Cell Count 4.87 X10^6/uL (4.5-5.9); Red Cell Distribution Width 17.8 % (11.6-14.8); White Blood Cell Count 7.4 X10^3/uL (4.5-11.0)
[2018-10-18 14:44] LABS: PTT Partial Thromboplastin Tim 43 SECONDS (26.4-36.2)
[2018-10-18 14:48] LABS: Alanine Aminotransferase 13 IU/L (21-72); Albumin 3.6 g/dL (3.5-5.0); Alkaline Phosphatase 190 U/L (38-126); Aspartate Aminotransferase 37 IU/L (17-59); BUN Creatinine Ratio 21.2 (6-22); Bilirubin Total 1.3 mg/dL (0.2-1.3); Blood Urea Nitrogen 53 mg/dL (9-20); Calcium 8.3 mg/dL (8.4-10.2); Carbon Dioxide 30 mmol/L (22-32); Chloride 99 mmol/L (98-107); Creatine Kinase 67 U/L (55-170); Estimated Glomerular Filt Rate 25.2 mL/min (>60); Globulin 3.6 g/dL (1.7-4.1); Glucose 137 mg/dL (80-110); Lipase 123 U/L (23-300); Potassium 4.4 mmol/L (3.4-5.1); Sodium 141 mmol/L (137-145); Total Protein 7.2 g/dL (6.3-8.2)
[2018-10-18 14:51] LABS: HEMOLYSIS 75 (0-50)
[2018-10-18 14:58] LABS: Troponin I 0.036 ng/mL (0.01-0.034)
[2018-10-18 16:00] VITALS: BP 107/67; PULSE 70; RESP 20; O2SAT 94
[2018-10-18 16:55] VITALS: BP 104/60; PULSE 55; RESP 20; O2SAT 99
--- NOTE | 2018-11-21 15:47 | PC.NURSE ---
Per Nicolle Colmenares RN, pt receved 100ml of NS IV, completed at 1532 on 10/18/2018
== END 2018-10-18 16:57 | disposition home or self-care (01) ==
PROVIDERS: Emergency Provider Emergency Medicine; Family Provider Family Medicine; PCP Family Medicine
DX: I95.1 Orthostatic hypotension (principal)
CPT/HCPCS: 36591; 71045; 80053; 82550; 83690; 84484; 85025; 85610; 85730; 93005; 96360; 99282; 99285

== ENCOUNTER → 2018-12-25 08:30 | Outpatient (CLI) | payer MEDICARE, OTHER, SELFPAY ==
[2018-07-17 10:22] VITALS: BMI 27.3
[2018-12-25 09:39] LABS: BUN Creatinine Ratio 22.1 (6-22); Blood Urea Nitrogen 42 mg/dL (9-20); Calcium 9.4 mg/dL (8.4-10.2); Carbon Dioxide 31 mmol/L (22-32); Chloride 100 mmol/L (98-107); Estimated Glomerular Filt Rate 34.5 mL/min (>60); Glucose 105 mg/dL (80-110); HEMOLYSIS < 15 (0-50); Potassium 4.2 mmol/L (3.4-5.1); Sodium 139 mmol/L (137-145)
== END ==
PROVIDERS: PCP Family Medicine; Visit Provider Internal Medicine Cardiovascular Disease
DX: I50.22 Chronic systolic (congestive) heart failure (principal)
CPT/HCPCS: 36415; 80048

== ENCOUNTER 2019-02-16 08:08 | Emergency (ER) | payer MEDICARE, OTHER, SELFPAY ==
[2018-07-17 10:22] VITALS: BMI 27.3
[2019-02-16 08:14] VITALS: BP 126/73; PULSE 69; RESP 20; TEMP 36.4; O2SAT 96; BMI 27.7
--- NOTE | 2019-02-16 08:14 | DI.RAD.S_ITS ---
PROCEDURE: XR FINGER LT MIN 2V INDICATIONS: dislocated +/-fx, s/p reduction of PIP TECHNIQUE: AP hand, 2 views of the left third finger(s) acquired. COMPARISON: None. FINDINGS: Bones: Small avulsion fracture of the volar base of the third middle phalange.. No suspicious bony lesions. Soft tissues: No suspicious soft tissue calcifications. IMPRESSION: Third middle phalange fracture. Dictated by: Rizwana Callahan MD, PhD on 02/16/2019 at 8:36 Approved by: Rizwana Callahan MD, PhD on 02/16/2019 at 8:38
--- NOTE | 2019-02-16 08:16 | ED.FALL ---
HPI - Fall General Chief Complaint: Fall Stated Complaint: Hit head on coumadin Time Seen by Provider: 02/16/19 08:10 Source: patient and EMS Mode of arrival: EMS Limitations: no limitations History of Present Illness HPI Narrative: 78-year-old male presents by EMS for evaluation of a ground level fall with head injury. The patient takes Coumadin for AFib and struck his head but denies any loss of consciousness, nausea, vomiting or focal neurologic findings. He states he tripped because his gout was acting up, and in fact he was on his way to get a prescription of steroids. He injured his left hand and has a fractured or dislocated finger per his own admission. He denies chest pain or shortness of breath. MD complaint: fall Onset (ago): minute(s) Fall from: standing Fall witnessed: yes, by bystander Place fall occurred: home Loss of consciousness: none Prolonged down time: no Symptoms prior to fall: none Context: tripped/slipped Location of injury: head Location of injury - extremities: Left: hand Severity: mild Quality: sharp Associated symptoms (after fall): denies Related Data Home Medications Medication Instructions Recorded Confirmed atorvastatin [Lipitor] 40 mg OR QPM #0 08/19/16 07/17/18 cyanocobalamin (vitamin B-12) 500 mcg OR Q DAY #0 08/19/16 07/17/18 isosorbide mononitrate 30 mg OR HS #0 08/19/16 07/17/18 nitroglycerin [Nitrostat] 1 tab SUBLINGUAL PRN PRN #0 08/19/16 07/17/18 spironolactone [Aldactone] 12.5 mg PO QDAY #0 03/07/17 07/17/18 warfarin [Coumadin] 1 tab PO QPM #0 03/07/17 07/17/18 aspirin 81 mg PO QDAY #0 12/28/17 07/17/18 carvedilol [Coreg] 3.125 mg PO BID #0 12/28/17 07/17/18 multivitamin [Multiple Vitamins] 1 tab PO QDAY #0 12/28/17 07/17/18 albuterol sulfate 1 puff INHALATION DIRECTED 07/17/18 07/17/18 ferrous sulfate 1 tab PO DAILY 07/17/18 07/17/18 fluticasone propionate 1 puff INHALATION DIRECTED 07/17/18 07/17/18 torsemide 40 mg PO DAILY 07/17/18 07/17/18 Previous Rx's Medication Instructions Recorded hydrocodone-acetaminophen 1 tab PO Q4-6H PRN #14 tab 09/17/18 Allergies Allergy/AdvReac Type Severity Reaction Status Date / Time No Known Drug Allergies Allergy Verified 09/13/18 19:23 Review of Systems Constitutional Denies chills, Denies fever(s), Denies lethargy and Denies weakness Eyes Denies change in vision, Denies eye discharge, Denies irritation and Denies loss of vision ENT Ears, Nose, Mouth, and Throat: Denies change in voice, Denies neck pain and Denies sore throat Cardiovascular Denies chest pain, Denies irregular heart rhythm, Denies lightheadedness, Denies palpitations, Denies dyspnea, Denies dyspnea on exertion and Denies orthopnea Respiratory Denies cough, Denies dyspnea, Denies dyspnea on exertion and Denies wheezing Gastrointestinal Gastrointestinal: Denies abdominal pain, Denies change in bowel habits, Denies diarrhea, Denies nausea and Denies vomiting Genitourinary Denies hematuria, Denies flank pain, Denies urinary incontinence and Denies urinary urgency Musculoskeletal Reports joint swelling, Reports limited range of motion and Denies neck pain Integumentary/Breasts Denies pruritus, Denies erythema, Denies rash and Denies wounds Neurologic Denies confusion, Denies loss of vision and Denies weakness Psychiatric Denies anxiety, Denies confusion, Denies depression, Denies homicidal ideation and Denies suicidal ideation Endocrine Denies palpitations Hematologic/Lymphatic Denies easy bruising Allergic/Immunologic Denies wheezing Exam Narrative Exam Narrative: GENERAL: 78-year-old male, no significant distress. Alert and oriented x3. GCS 15 HEAD: Small abrasion left brow EYES: Pupils equal round and reactive. Extraocular motions intact. No scleral icterus. No injection or drainage. ENT: Nose without bleeding, purulent drainage or septal hematoma. Throat without erythema, tonsillar hypertrophy or exudate. Uvula midline. Airway patent. NECK: Trachea midline. No JVD or lymphadenopathy. Supple, nontender, no meningeal signs. CARDIOVASCULAR: Regular rate and rhythm without murmurs, gallops, or rubs. RESPIRATORY: Clear to auscultation. Breath sounds equal bilaterally. No wheezes, rales, or rhonchi. GASTROINTESTINAL: Abdomen soft, non-tender, nondistended. No hepato-splenomegaly, or palpable masses. No guarding. EXTREMITIES: Left middle finger with obvious deformity and discoloration with decreased range of motion. Small superficial abrasions on dorsum of left hand. Patient has no tenderness to palpation of the hand. Just the finger BACK: Nontender without deformity or crepitance. No flank tenderness. NEURO: AOx3. SKIN: No rash or erythema. Abrasions as noted Initial Vital Signs Initial Vital Signs: Vital Signs Temperature 97.6 F 02/16/19 08:14 Pulse Rate 69 02/16/19 08:14 Respiratory Rate 20 02/16/19 08:14 Blood Pressure 126/73 02/16/19 08:14 Pulse Oximetry 96 02/16/19 08:14 [facility] Social History household members: none Smoking Status: Former smoker alcohol intake: former Procedures Orthopedic Joint Reduction Joint #1: Time Out Performed: No Side: left Joint Reduction Location: finger Analgesia: none Technique used: traction/counter-traction Post-reduction neuro exam: intact Post-reduction vascular: intact Post Reduction X-Ray Obtained: Yes Post Reduction X-Ray Results: reduced Splint Applied: Yes Patient Tolerated Procedure: Well Course Orders Ordered: ED Orders 02/16/19 08:14 XR finger LT min 2V Stat 02/16/19 08:19 CT head/brain wo con Stat 02/16/19 08:40 Partial Thromboplastin Time Stat Prothrombin Time INR Stat Discontinued Medications Diphtheria/Tetanus/Acell Pertussis (Adacel) 0.5 ml IM .ONCE ONE Stop: 02/16/19 08:15 Last Admin: 02/16/19 08:33 Dose: 0.5 ml Vital Signs - 8 hr 02/16/19 08:14 02/16/19 09:23 Temperature 97.6 F Pulse Rate 69 70 Respiratory Rate 20 18 Blood Pressure 126/73 Blood Pressure [Right Arm] 112/67 Pulse Oximetry 96 99 MDM - Fall Lab Data Lab Results 02/16/19 Range/Units 08:40 PT 22.2 H (10.1-12.7) SECONDS INR 1.9 H (0.9-1.3) APTT 34 D (26.4-36.2) SECONDS Imaging Data CT scan - head: Radiologist's impression: [address] [address] [address] Scan Report Signed Patient: Raymond Gamble CMR#: [id number] : 1Acct:[id number] Age/Sex: 78 / MDate of Service: 02/16/19 Loc: ED Accession Number: [id number] Procedure: CT head/brain wo con Ordering Provider: Les Morin D.O. PROCEDURE: CT HEAD/BRAIN WO CON INDICATIONS: fall, head injury, on coumadin TECHNIQUE: Noncontrast 4.5 mm thick angled axial sections acquired from the foramen magnum to the vertex, with coronal and sagittal reformats. For radiation dose reduction, the following was used: automated exposure control, adjustment of mA and/or kV according to patient size. COMPARISON: None. FINDINGS: Image quality: Excellent. CSF spaces: Basal cisterns are patent. No extra-axial fluid collections. The ventricles are symmetric in size and shape. Brain: No intracranial bleeds or masses. There is cerebral volume loss for age, with resultant ventricular and sulcal prominence. There are periventricular and deep white matter chronic small vessel ischemic changes. There is intracranial internal carotid artery atherosclerosis. Skull and face: Calvarium and visualized facial bones appear intact, without suspicious lesions. Sinuses: Visualized sinuses and mastoids are clear. IMPRESSION: No acute intracranial process. Dictated by: Sebastien Dewey M.D. on 02/16/2019 at 8:33 Approved by: Sebastien Dewey M.D. on 02/16/2019 at 8:36 Finger: Radiologist's impression: [address] [address] XRay Report Signed Patient: Raymond Gamble CMR#: [id number] : 1Acct:[id number] Age/Sex: 78 / MDate of Service: 02/16/19 Loc: ED Accession Number: [id number] Procedure: XR finger LT min 2V Ordering Provider: Les Morin D.O. PROCEDURE: XR FINGER LT MIN 2V INDICATIONS: dislocated +/-fx, s/p reduction of PIP TECHNIQUE: AP hand, 2 views of the left third finger(s) acquired. COMPARISON: None. FINDINGS: Bones: Small avulsion fracture of the volar base of the third middle phalange.. No suspicious bony lesions. Soft tissues: No suspicious soft tissue calcifications. IMPRESSION: Third middle phalange fracture. Dictated by: Rizwana Callahan MD, PhD on 02/16/2019 at 8:36 Discharge Plan Departure Patient Disposition: Home Clinical Impression: Closed dislocation finger, proximal interphalangeal joint, traumatic Abrasion hand Qualifiers: Encounter type: initial encounter Laterality: left Qualified Code(s): S60.512A - Abrasion of left hand, initial encounter Prescriptions: No Action atorvastatin [Lipitor] 40 MG tablet 40 mg OR QPM Qty: 0 RF: 0 cyanocobalamin (vitamin B-12) 1,000 MCG tablet extended release 500 mcg OR Q DAY Qty: 0 RF: 0 nitroglycerin [Nitrostat] 0.4 MG tablet, sublingual 1 tab Sublingual PRN PRN (Reason: Chest Pain) Qty: 0 RF: 0 isosorbide mononitrate 30 MG tablet extended release 24 hr 30 mg OR HS Qty: 0 RF: 0 warfarin [Coumadin] 2.5 MG tablet 1 tab PO QPM Qty: 0 RF: 0 spironolactone [Aldactone] 25 MG tablet 12.5 mg PO QDAY Qty: 0 RF: 0 multivitamin [Multiple Vitamins] 1 EACH tablet 1 tab PO QDAY Qty: 0 RF: 0 aspirin 81 MG tablet,delayed release (DR/EC) 81 mg PO QDAY Qty: 0 RF: 0 carvedilol [Coreg] 6.25 MG tablet 3.125 mg PO BID Qty: 0 RF: 0 ferrous sulfate 325 mg (65 mg iron) tablet 1 tab PO DAILY RF: 0 albuterol sulfate 90 mcg/actuation HFA aerosol inhaler 1 puff Inhalation DIRECTED RF: 0 fluticasone propionate 110 mcg/actuation HFA aerosol inhaler 1 puff Inhalation DIRECTED RF: 0 torsemide 20 mg Tablet 40 mg PO DAILY RF: 0 hydrocodone-acetaminophen 5-325 mg tablet 1 tab PO Q4-6H PRN (Reason: pain) Qty: 14 RF: 0 Referrals: Concepcion Junior [Primary Care Provider] -
--- NOTE | 2019-02-16 08:19 | DI.CT.S_ITS ---
PROCEDURE: CT HEAD/BRAIN WO CON INDICATIONS: fall, head injury, on coumadin TECHNIQUE: Noncontrast 4.5 mm thick angled axial sections acquired from the foramen magnum to the vertex, with coronal and sagittal reformats. For radiation dose reduction, the following was used: automated exposure control, adjustment of mA and/or kV according to patient size. COMPARISON: None. FINDINGS: Image quality: Excellent. CSF spaces: Basal cisterns are patent. No extra-axial fluid collections. The ventricles are symmetric in size and shape. Brain: No intracranial bleeds or masses. There is cerebral volume loss for age, with resultant ventricular and sulcal prominence. There are periventricular and deep white matter chronic small vessel ischemic changes. There is intracranial internal carotid artery atherosclerosis. Skull and face: Calvarium and visualized facial bones appear intact, without suspicious lesions. Sinuses: Visualized sinuses and mastoids are clear. IMPRESSION: No acute intracranial process. Dictated by: Sebastien Dewey M.D. on 02/16/2019 at 8:33 Approved by: Sebastien Dewey M.D. on 02/16/2019 at 8:36
--- NOTE | 2019-02-16 08:22 | ED_ITS ---
HPI - Fall General Chief Complaint: Fall Stated Complaint: Hit head on coumadin Time Seen by Provider: 02/16/19 08:10 Source: patient and EMS Mode of arrival: EMS Limitations: no limitations History of Present Illness HPI Narrative: 78-year-old male presents by EMS for evaluation of a ground level fall with head injury. The patient takes Coumadin for AFib and struck his head but denies any loss of consciousness, nausea, vomiting or focal neurologic findings. He states he tripped because his gout was acting up, and in fact he was on his way to get a prescription of steroids. He injured his left hand and has a fractured or dislocated finger per his own admission. He denies chest pain or shortness of breath. MD complaint: fall Onset (ago): minute(s) Fall from: standing Fall witnessed: yes, by bystander Place fall occurred: home Loss of consciousness: none Prolonged down time: no Symptoms prior to fall: none Context: tripped/slipped Location of injury: head Location of injury - extremities: Left: hand Severity: mild Quality: sharp Associated symptoms (after fall): denies Related Data Home Medications Medication Instructions Recorded Confirmed atorvastatin [Lipitor] 40 mg OR QPM #0 08/19/16 07/17/18 cyanocobalamin (vitamin B-12) 500 mcg OR Q DAY #0 08/19/16 07/17/18 isosorbide mononitrate 30 mg OR HS #0 08/19/16 07/17/18 nitroglycerin [Nitrostat] 1 tab SUBLINGUAL PRN PRN #0 08/19/16 07/17/18 spironolactone [Aldactone] 12.5 mg PO QDAY #0 03/07/17 07/17/18 warfarin [Coumadin] 1 tab PO QPM #0 03/07/17 07/17/18 aspirin 81 mg PO QDAY #0 12/28/17 07/17/18 carvedilol [Coreg] 3.125 mg PO BID #0 12/28/17 07/17/18 multivitamin [Multiple Vitamins] 1 tab PO QDAY #0 12/28/17 07/17/18 albuterol sulfate 1 puff INHALATION DIRECTED 07/17/18 07/17/18 ferrous sulfate 1 tab PO DAILY 07/17/18 07/17/18 fluticasone propionate 1 puff INHALATION DIRECTED 07/17/18 07/17/18 torsemide 40 mg PO DAILY 07/17/18 07/17/18 Previous Rx's Medication Instructions Recorded hydrocodone-acetaminophen 1 tab PO Q4-6H PRN #14 tab 09/17/18 Allergies Allergy/AdvReac Type Severity Reaction Status Date / Time No Known Drug Allergies Allergy Verified 09/13/18 19:23 Review of Systems Constitutional Denies chills, Denies fever(s), Denies lethargy and Denies weakness Eyes Denies change in vision, Denies eye discharge, Denies irritation and Denies loss of vision ENT Ears, Nose, Mouth, and Throat: Denies change in voice, Denies neck pain and Denies sore throat Cardiovascular Denies chest pain, Denies irregular heart rhythm, Denies lightheadedness, Denies palpitations, Denies dyspnea, Denies dyspnea on exertion and Denies orthopnea Respiratory Denies cough, Denies dyspnea, Denies dyspnea on exertion and Denies wheezing Gastrointestinal Gastrointestinal: Denies abdominal pain, Denies change in bowel habits, Denies diarrhea, Denies nausea and Denies vomiting Genitourinary Denies hematuria, Denies flank pain, Denies urinary incontinence and Denies urinary urgency Musculoskeletal Reports joint swelling, Reports limited range of motion and Denies neck pain Integumentary/Breasts Denies pruritus, Denies erythema, Denies rash and Denies wounds Neurologic Denies confusion, Denies loss of vision and Denies weakness Psychiatric Denies anxiety, Denies confusion, Denies depression, Denies homicidal ideation and Denies suicidal ideation Endocrine Denies palpitations Hematologic/Lymphatic Denies easy bruising Allergic/Immunologic Denies wheezing Exam Narrative Exam Narrative: GENERAL: 78-year-old male, no significant distress. Alert and oriented x3. GCS 15 HEAD: Small abrasion left brow EYES: Pupils equal round and reactive. Extraocular motions intact. No scleral icterus. No injection or drainage. ENT: Nose without bleeding, purulent drainage or septal hematoma. Throat without erythema, tonsillar hypertrophy or exudate. Uvula midline. Airway patent. NECK: Trachea midline. No JVD or lymphadenopathy. Supple, nontender, no meningeal signs. CARDIOVASCULAR: Regular rate and rhythm without murmurs, gallops, or rubs. RESPIRATORY: Clear to auscultation. Breath sounds equal bilaterally. No wheezes, rales, or rhonchi. GASTROINTESTINAL: Abdomen soft, non-tender, nondistended. No hepato-s plenomegaly, or palpable masses. No guarding. EXTREMITIES: Left middle finger with obvious deformity and discoloration with decreased range of motion. Small superficial abrasions on dorsum of left hand. Patient has no tenderness to palpation of the hand. Just the finger BACK: Nontender without deformity or crepitance. No flank tenderness. NEURO: AOx3. SKIN: No rash or erythema. Abrasions as noted Initial Vital Signs Initial Vital Signs: Vital Signs Temperature 97.6 F 02/16/19 08:14 Pulse Rate 69 02/16/19 08:14 Respiratory Rate 20 02/16/19 08:14 Blood Pressure 126/73 02/16/19 08:14 Pulse Oximetry 96 02/16/19 08:14 [facility] Social History household members: none Smoking Status: Former smoker alcohol intake: former Procedures Orthopedic Joint Reduction Joint #1: Time Out Performed: No Side: left Joint Reduction Location: finger Analgesia: none Technique used: traction/counter-traction Post-reduction neuro exam: intact Post-reduction vascular: intact Post Reduction X-Ray Obtained: Yes Post Reduction X-Ray Results: reduced Splint Applied: Yes Patient Tolerated Procedure: Well Course Orders Ordered: ED Orders 02/16/19 08:14 XR finger LT min 2V Stat 02/16/19 08:19 CT head/brain wo con Stat 02/16/19 08:40 Partial Thromboplastin Time Stat Prothrombin Time INR Stat Discontinued Medications Diphtheria/Tetanus/Acell Pertussis (Adacel) 0.5 ml IM .ONCE ONE Stop: 02/16/19 08:15 Last Admin: 02/16/19 08:33 Dose: 0.5 ml Vital Signs - 8 hr 02/16/19 08:14 02/16/19 09:23 Temperature 97.6 F Pulse Rate 69 70 Respiratory Rate 20 18 Blood Pressure 126/73 Blood Pressure [Right Arm] 112/67 Pulse Oximetry 96 99 MDM - Fall Lab Data Lab Results 02/16/19 Range/Units 08:40 PT 22.2 H (10.1-12.7) SECONDS INR 1.9 H (0.9-1.3) APTT 34 D (26.4-36.2) SECONDS Imaging Data CT scan - head: Radiologist's impression: [address] [address] [address] Scan Report Signed Patient: Raymond Gamble CMR#: [id number] : 1Acct:[id number] Age/Sex: 78 / MDate of Service: 02/16/19 Loc: ED Accession Number: [id number] Procedure: CT head/brain wo con Ordering Provider: Les Morin D.O. PROCEDURE: CT HEAD/BRAIN WO CON INDICATIONS: fall, head injury, on coumadin TECHNIQUE: Noncontrast 4.5 mm thick angled axial sections acquired from the foramen magnum to the vertex, with coronal and sagittal reformats. For radiation dose reduction, the following was used: automated exposure control, adjustment of mA and/or kV according to patient size. COMPARISON: None. FINDINGS: Image quality: Excellent. CSF spaces: Basal cisterns are patent. No extra-axial fluid collections. The ventricles are symmetric in size and shape. Brain: No intracranial bleeds or masses. There is cerebral volume loss for age, with resultant ventricular and sulcal prominence. There are periventricular and deep white matter chronic small vessel ischemic changes. There is intracranial internal carotid artery atherosclerosis. Skull and face: Calvarium and visualized facial bones appear intact, without suspicious lesions. Sinuses: Visualized sinuses and mastoids are clear. IMPRESSION: No acute intracranial process. Dictated by: Sebastien Dewey M.D. on 02/16/2019 at 8:33 Approved by: Sebastien Dewey M.D. on 02/16/2019 at 8:36 Finger: Radiologist's impression: [address] [address] XRay Report Signed Patient: Raymond Gamble CMR#: [id number] : 1At:[id number] Age/Sex: 78 / MDate of Service: 02/16/19 Loc: ED Accession Number: [id number] Procedure: XR finger LT min 2V Ordering Provider: Les Morin D.O. PROCEDURE: XR FINGER LT MIN 2V INDICATIONS: dislocated +/-fx, s/p reduction of PIP TECHNIQUE: AP hand, 2 views of the left third finger(s) acquired. COMPARISON: None. FINDINGS: Bones: Small avulsion fracture of the volar base of the third middle phalange.. No suspicious bony lesions. Soft tissues: No suspicious soft tissue calcifications. IMPRESSION: Third middle phalange fracture. Dictated by: Rizwana Callahan MD, PhD on 02/16/2019 at 8:36 Discharge Plan Departure Patient Disposition: Home Clinical Impression: Closed dislocation finger, proximal interphalangeal joint, traumatic Abrasion hand Qualifiers: Encounter type: initial encounter Laterality: left Qualified Code(s): S60.512A - Abrasion of left hand, initial encounter Prescriptions: No Action atorvastatin [Lipitor] 40 MG tablet 40 mg OR QPM Qty: 0 RF: 0 cyanocobalamin (vitamin B-12) 1,000 MCG tablet extended release 500 mcg OR Q DAY Qty: 0 RF: 0 nitroglycerin [Nitrostat] 0.4 MG tablet, sublingual 1 tab Sublingual PRN PRN (Reason: Chest Pain) Qty: 0 RF: 0 isosorbide mononitrate 30 MG tablet extended release 24 hr 30 mg OR HS Qty: 0 RF: 0 warfarin [Coumadin] 2.5 MG tablet 1 tab PO QPM Qty: 0 RF: 0 spironolactone [Aldactone] 25 MG tablet 12.5 mg PO QDAY Qty: 0 RF: 0 multivitamin [Multiple Vitamins] 1 EACH tablet 1 tab PO QDAY Qty: 0 RF: 0 aspirin 81 MG tablet,delayed release (DR/EC) 81 mg PO QDAY Qty: 0 RF: 0 carvedilol [Coreg] 6.25 MG tablet 3.125 mg PO BID Qty: 0 RF: 0 ferrous sulfate 325 mg (65 mg iron) tablet 1 tab PO DAILY RF: 0 albuterol sulfate 90 mcg/actuation HFA aerosol inhaler 1 puff Inhalation DIRECTED RF: 0 fluticasone propionate 110 mcg/actuation HFA aerosol inhaler 1 puff Inhalation DIRECTED RF: 0 torsemide 20 mg Tablet 40 mg PO DAILY RF: 0 hydrocodone-acetaminophen 5-325 mg tablet 1 tab PO Q4-6H PRN (Reason: pain) Qty: 14 RF: 0 Referrals: Concepcion Junior [Primary Care Provider] -
[2019-02-16] MEDS: TET,DIPH,PERTUSS(ACELL),VAC/PF 0.5 ML SYRINGE IM (08:33)
[2019-02-16 08:54] LABS: INR 1.9 (0.9-1.3); Prothrombin Time 22.2 SECONDS (10.1-12.7)
[2019-02-16 08:57] LABS: PTT Partial Thromboplastin Tim 34 SECONDS (26.4-36.2)
[2019-02-16 09:23] VITALS: BP 112/67; PULSE 70; RESP 18; O2SAT 99
[2019-02-16 09:55] VITALS: BP 124/73; PULSE 70; RESP 18; O2SAT 96
== END 2019-02-16 09:55 | disposition home or self-care (01) ==
PROVIDERS: Emergency Provider Emergency Medicine; PCP Family Medicine
DX: S60.512A Abrasion of left hand, initial encounter (principal); S09.90XA Unspecified injury of head, initial encounter; M79.645 Pain in left finger(s); W18.30XA Fall on same level, unspecified, initial encounter; Z79.01 Long term (current) use of anticoagulants; Z23 Encounter for immunization
CPT/HCPCS: 29130; 70450; 73140; 85610; 85730; 90471; 99283; 99284; 90715

== ENCOUNTER → 2019-06-22 07:39 | Outpatient (CLI) | payer MEDICARE, OTHER, SELFPAY ==
[2018-07-17 10:22] VITALS: BMI 27.3
[2019-06-22 08:54] LABS: Cholesterol 178 mg/dL (140-199); HDL Cholesterol 46 mg/dL (40-60); LDL Cholesterol Calculated 100 mg/dL (<100); Triglycerides 161 mg/dL (35-150)
== END ==
PROVIDERS: PCP Family Medicine; Visit Provider Internal Medicine Cardiovascular Disease
DX: E78.5 Hyperlipidemia, unspecified (principal)
CPT/HCPCS: 36415; 80061

== ENCOUNTER → 2019-08-17 09:47 | Outpatient (CLI) | payer MEDICARE, OTHER, SELFPAY ==
[2018-07-17 10:22] VITALS: BMI 27.3
[2019-08-17 11:19] LABS: BUN Creatinine Ratio 17.9 (6-22); Blood Urea Nitrogen 52 mg/dL (9-20); Calcium 8.8 mg/dL (8.4-10.2); Carbon Dioxide 26 mmol/L (22-32); Chloride 103 mmol/L (98-107); Estimated Glomerular Filt Rate 21.2 mL/min (>60); Glucose 116 mg/dL (80-110); HEMOLYSIS < 15 (0-50); Potassium 3.9 mmol/L (3.4-5.1); Sodium 142 mmol/L (137-145)
== END ==
PROVIDERS: PCP Family Medicine; Visit Provider Internal Medicine Cardiovascular Disease
DX: I50.22 Chronic systolic (congestive) heart failure (principal)
CPT/HCPCS: 36415; 80048

== ENCOUNTER → 2019-09-07 11:08 | Outpatient (CLI) | payer MEDICARE, OTHER, SELFPAY ==
[2018-07-17 10:22] VITALS: BMI 27.3
[2019-09-07 12:55] LABS: BUN Creatinine Ratio 23.3 (6-22); Blood Urea Nitrogen 56 mg/dL (9-20); Carbon Dioxide 26 mmol/L (22-32); Chloride 111 mmol/L (98-107); Estimated Glomerular Filt Rate 26.3 mL/min (>60); Glucose 79 mg/dL (80-110); HEMOLYSIS < 15 (0-50); Magnesium 2.4 mg/dL (1.6-2.3); Sodium 145 mmol/L (137-145)
== END ==
PROVIDERS: Family Provider Internal Medicine Cardiovascular Disease; PCP Family Medicine; Visit Provider Internal Medicine
DX: N18.3 Chronic kidney disease, stage 3 (moderate) (principal); I10 Essential (primary) hypertension; I25.5 Ischemic cardiomyopathy; M1A.9XX0 Chronic gout, unspecified, without tophus (tophi)
CPT/HCPCS: 36415; 80048; 83735

== ENCOUNTER → 2019-09-19 10:24 | Outpatient (CLI) | payer MEDICARE, OTHER, SELFPAY ==
[2018-07-17 10:22] VITALS: BMI 27.3
[2019-09-19 12:17] LABS: BUN Creatinine Ratio 18.1 (6-22); Blood Urea Nitrogen 38 mg/dL (9-20); Calcium 8.8 mg/dL (8.4-10.2); Carbon Dioxide 25 mmol/L (22-32); Chloride 108 mmol/L (98-107); Estimated Glomerular Filt Rate 30.7 mL/min (>60); Glucose 106 mg/dL (80-110); HEMOLYSIS < 15 (0-50); Sodium 143 mmol/L (137-145)
== END ==
PROVIDERS: Family Provider Internal Medicine Cardiovascular Disease; PCP Family Medicine; Visit Provider Internal Medicine
DX: I50.22 Chronic systolic (congestive) heart failure (principal); N18.4 Chronic kidney disease, stage 4 (severe)
CPT/HCPCS: 36415; 80048

== ENCOUNTER → 2019-10-01 12:41 | Outpatient (CLI) | payer MEDICARE, OTHER, SELFPAY ==
[2018-07-17 10:22] VITALS: BMI 27.3
[2019-10-01 13:48] LABS: BUN Creatinine Ratio 16.8 (6-22); Blood Urea Nitrogen 42 mg/dL (9-20); Carbon Dioxide 23 mmol/L (22-32); Chloride 106 mmol/L (98-107); Estimated Glomerular Filt Rate 25.1 mL/min (>60); Glucose 102 mg/dL (80-110); HEMOLYSIS < 15 (0-50); Potassium 4.3 mmol/L (3.4-5.1); Sodium 140 mmol/L (137-145)
== END ==
PROVIDERS: Family Provider Family Medicine; PCP Family Medicine; Visit Provider Internal Medicine Cardiovascular Disease
DX: E78.5 Hyperlipidemia, unspecified (principal)
CPT/HCPCS: 36415; 80048

== ENCOUNTER → 2019-10-26 09:50 | Outpatient (CLI) | payer MEDICARE, OTHER, SELFPAY ==
[2018-07-17 10:22] VITALS: BMI 27.3
--- NOTE | 2019-10-26 | DI.RAD.S_ITS ---
PROCEDURE: XR ELBOW RT MIN 3V INDICATIONS: PAIN IN RIGHT ELBOW TECHNIQUE: 3 views of the elbow were acquired. COMPARISON: None. FINDINGS: Bones: Osteoarthritic changes in elbow joint are seen. Prominent dorsal enthesophyte formation at proximal olecranon is seen No fractures or dislocations. No suspicious bony lesions. Soft tissues: No elbow joint effusion. No suspicious soft tissue calcifications. 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 No fracture or dislocation. No significant joint effusion. Dictated by: Gil Soto M.D. on 10/26/2019 at 10:18 Approved by: Gil Soto M.D. on 10/26/2019 at 10:20
== END ==
PROVIDERS: PCP Family Medicine; Visit Provider Family Medicine
DX: M25.521 Pain in right elbow (principal); M19.021 Primary osteoarthritis, right elbow
CPT/HCPCS: 73080

== ENCOUNTER 2019-12-11 01:16 | Emergency (ER) | payer MEDICARE, OTHER, SELFPAY ==
[2018-07-17 10:22] VITALS: BMI 27.3
[2019-12-11] VITALS (7 sets, daily range): BP systolic 85–110; BP diastolic 53–65; PULSE 67–86; RESP 16–18; O2SAT 97–100; BMI 28.5
--- NOTE | 2019-12-11 02:32 | DI.RAD.S_ITS ---
PROCEDURE: XR CHEST 1V INDICATIONS: chest pain TECHNIQUE: One view of the chest was acquired. COMPARISON: [facility], CR, XR CHEST 2 VIEWS, 05/30/2019, 10:04. [facility], CR, XR CHEST 1V, 10/18/2018, 14:58. FINDINGS: Surgical changes and devices: AICD is stable. Patient status post CABG procedure. Lungs and pleura: Focal opacity in the medial aspect of the right lung base is stable compared to 05/30/2019 may represent probable scarring, or recurrent pneumonia. Trace right-sided pleural effusion versus pleural scarring. No pneumothorax. Mediastinum: Mediastinal contours appear normal. Heart is enlarged, but stable compared to prior exam. Bones and chest wall: No suspicious bony lesions. Overlying soft tissues appear unremarkable. IMPRESSION: Trace right-sided pleural effusion versus pleural scarring. Right basilar opacity compatible with scarring versus recurrent pneumonia. Dictated by: Rizwana Callahan MD, PhD on 12/11/2019 at 9:13 Approved by: Rizwana Callahan MD, PhD on 12/11/2019 at 9:14
[2019-12-11 03:11] LABS: Add Manual Diff / Slide Review YES; Hematocrit 34.1 % (41-53); Hemoglobin 11.1 g/dL (13.5-17.5); Mean Corpuscular HGB Conc 32.6 % (30-36); Mean Corpuscular Volume 85.9 fL (80-100); Platelet Count 279 X10^3/uL (150-400); Red Blood Cell Count 3.97 X10^6/uL (4.5-5.9); Red Cell Distribution Width 16.1 % (11.6-14.8); White Blood Cell Count 9.5 X10^3/uL (4.5-11.0)
[2019-12-11 03:14] LABS: Alanine Aminotransferase 13 IU/L (<50); Albumin 3.2 g/dL (3.5-5.0); Alkaline Phosphatase 80 U/L (38-126); Aspartate Aminotransferase 15 IU/L (17-59); BUN Creatinine Ratio 21.5 (6-22); Bilirubin Total 0.5 mg/dL (0.2-1.3); Blood Urea Nitrogen 58 mg/dL (9-20); Calcium 8.5 mg/dL (8.4-10.2); Carbon Dioxide 24 mmol/L (22-32); Chloride 105 mmol/L (98-107); Creatine Kinase 22 U/L (55-170); Globulin 3.1 g/dL (1.7-4.1); Glucose 131 mg/dL (80-110); HEMOLYSIS < 15 (0-50); Lipase 166 U/L (23-300); Potassium 3.6 mmol/L (3.4-5.1); Sodium 138 mmol/L (137-145); Total Protein 6.3 g/dL (6.3-8.2)
[2019-12-11 03:25] LABS: Troponin I 0.025 ng/mL (0.01-0.034)
[2019-12-11 04:24] LABS: INR 2.5 (0.9-1.3); Prothrombin Time 28.9 SECONDS (10.1-12.7)
[2019-12-11 04:27] LABS: PTT Partial Thromboplastin Tim 36 SECONDS (26.4-36.2)
--- NOTE | 2019-12-11 04:31 | ED_ITS ---
HPI - Dizziness <Trupti Wood, - Last Filed: 12/11/19 07:31> General Chief Complaint: Syncope Stated Complaint: Low BP/ double vision Time Seen by Provider: 12/11/19 04:13 Source: patient and old records reviewed Mode of arrival: EMS Limitations: no limitations History of Present Illness HPI Narrative: This is a pleasant 79-year-old male who comes to the emergency department with complaint of dizziness and vision change. Patient states that he checked his blood pressure and it was 71/44. He states he typically gets these episodes but they last 20 or 30 minutes today lasted about 3 hours. States he contacted EMS who when they arrived his symptoms improved as well as his blood pressure. He states that typically he is dehydrated when he has these symptoms but he drink 3 L of fluid today. He patient states he has not had headache, he does not have any difficulty with speech, no weakness or numbness in his extremities, no chest pain, no shortness of breath, no nausea vomiting no other GI or urinary issues. Patient has a significant cardiac history with balloon angioplasty after LA in 1994 followed by stents, CABG x2 including a [address] CABG which had catheterization and showed occlusion of 2 of those vessels and partial occlusion of 1 for years ago at that time he had episodes of what sounds like ventricular tachycardia and had a defibrillator placed. He has had 2 shocks in the past. He states he has chronic kidney disease with about 23% affective kidneys and his EF is about 30%. He also had recurrent pleural effusions with 7 thoracentesis and ultimately a VATS procedure discard on the lung. He follows with cardiology with Dr. Bruce, Dr. Bailey for Nephrology and Dr. Hayes is his primary care at [facility]. He states he was on prednisone for about 3 or 4 days which he finished yesterday because of a gout attack in his knee. He has not had any other medication changes. Related Data Home Medications Medication Instructions Recorded Confirmed atorvastatin [Lipitor] 40 mg OR QPM #0 08/19/16 07/17/18 cyanocobalamin (vitamin B-12) 500 mcg OR Q DAY #0 08/19/16 07/17/18 isosorbide mononitrate 30 mg OR HS #0 08/19/16 07/17/18 nitroglycerin [Nitrostat] 1 tab SUBLINGUAL PRN PRN #0 08/19/16 07/17/18 spironolactone [Aldactone] 12.5 mg PO QDAY #0 03/07/17 07/17/18 warfarin [Coumadin] 1 tab PO QPM #0 03/07/17 07/17/18 aspirin 81 mg PO QDAY #0 12/28/17 07/17/18 carvedilol [Coreg] 3.125 mg PO BID #0 12/28/17 07/17/18 multivitamin [Multiple Vitamins] 1 tab PO QDAY #0 12/28/17 07/17/18 albuterol sulfate 1 puff INHALATION DIRECTED 07/17/18 07/17/18 ferrous sulfate 1 tab PO DAILY 07/17/18 07/17/18 fluticasone propionate 1 puff INHALATION DIRECTED 07/17/18 07/17/18 torsemide 40 mg PO DAILY 07/17/18 07/17/18 Previous Rx's Medication Instructions Recorded hydrocodone-acetaminophen 1 tab PO Q4-6H PRN #14 tab 09/17/18 Allergies Allergy/AdvReac Type Severity Reaction Status Date / Time No Known Drug Allergies Allergy Verified 09/13/18 19:23 Review of Systems <Trupti Wood DO - Last Filed: 12/11/19 07:31> Review of Systems ROS Unobtainable: All systems reviewed & are unremarkable except as noted in HPI and below Patient History <Trupti Wood DO - Last Filed: 12/11/19 07:31> Medical History Afib (Chronic) CAD (coronary atherosclerotic disease) (Chronic) Ischemic cardiomyopathy (Chronic) Pleural effusion (Chronic) Pleural effusion (Chronic) Surgical History Hx of CABG (Chronic) Social History household members: none Smoking Status: Former smoker alcohol intake: former Smoking Status: Former smoker alcohol intake frequency: holidays/special occasions only Substance Use Type: does not use Exam <Trupti Wood DO - Last Filed: 12/11/19 07:31> Narrative Exam Narrative: GENERAL: Alert and oriented x three, well-nourished, well- appearing male in mild distress. HEENT: Head normocephalic, atraumatic, EOMI, pupils reactive, face symmetric, moist mucous membranes, no facial droop NECK: Supple, full range of motion CARDIOVASCULAR: Regular rate and rhythm without murmurs, rubs or gallops. No JVD. No swelling in lower extremities bilaterally. RESPIRATORY: Breath sounds equal bilaterally, no wheezes rales or rhonchi. No tachypnea or accessory muscle use. ABDOMEN: Soft, nontender. Normoactive bowel sounds all 4 quadrants. No guarding or rebound, rigidity, no mass : No CVA tenderness EXTREMITIES: Normal range of motion, no edema. Neurovascularly intact NEUROLOGICAL: Cranial nerves II through XII grossly intact. Moving all extremities SKIN: Warm, dry, no petechiae, no rashes or lesions. Initial Vital Signs Initial Vital Signs: Vital Signs Pulse Rate 70 12/11/19 01:22 Respiratory Rate 16 12/11/19 01:22 Blood Pressure 108/63 12/11/19 01:22 Pulse Oximetry 98 12/11/19 01:22 <Alejo Talamantes, DO - Last Filed: 12/11/19 08:18> Initial Vital Signs Initial Vital Signs: Vital Signs Pulse Rate 70 12/11/19 01:22 Respiratory Rate 16 12/11/19 01:22 Blood Pressure 108/63 12/11/19 01:22 Pulse Oximetry 98 12/11/19 01:22 Course <Trupti Wood, DO - Last Filed: 12/11/19 07:31> Orders Ordered: ED Orders 12/11/19 EKG-12 Lead Stat 12/11/19 02:32 XR chest 1V Stat 12/11/19 02:55 Complete Blood Count AUTO DIFF Stat Comprehensive Metabolic Panel Stat Lipase Stat NT-proBNP (BNP-Adult 18+) Stat Partial Thromboplastin Time Stat Prothrombin Time INR Stat Troponin & CK Cardiac Panel Stat 12/11/19 04:45 Magnesium Stat Troponin & CK Cardiac Panel Stat 12/11/19 04:55 EKG-12 Lead Stat Vital Signs Vital signs: Vital Signs - 8 hr 12/11/19 01:22 12/11/19 02:17 12/11/19 04:56 Pulse Rate 70 69 Pulse Rate [Orthostatic Lying] 68 Pulse Rate [Orthostatic Sitting] 86 Pulse Rate [Orthostatic Standing] 80 Respiratory Rate 16 18 Blood Pressure 108/63 Blood Pressure [Left Arm] 108/63 Blood Pressure [Orthostatic Lying] 106/65 Blood Pressure [Orthostatic Sitting] 85/55 L Blood Pressure [Orthostatic Standing] 90/53 L Pulse Oximetry 98 97 <Alejo Talamantes DO - Last Filed: 12/11/19 08:18> Orders Ordered: ED Orders 12/11/19 EKG-12 Lead Stat 12/11/19 02:32 XR chest 1V Stat 12/11/19 02:55 Complete Blood Count AUTO DIFF Stat Comprehensive Metabolic Panel Stat Lipase Stat NT-proBNP (BNP-Adult 18+) Stat Partial Thromboplastin Time Stat Prothrombin Time INR Stat Troponin & CK Cardiac Panel Stat 12/11/19 04:45 Magnesium Stat Troponin & CK Cardiac Panel Stat 12/11/19 04:55 EKG-12 Lead Stat Vital Signs Vital signs: Vital Signs - 8 hr 12/11/19 01:22 12/11/19 02:17 12/11/19 04:56 Pulse Rate 70 69 Pulse Rate [Orthostatic Lying] 68 Pulse Rate [Orthostatic Sitting] 86 Pulse Rate [Orthostatic Standing] 80 Respiratory Rate 16 18 Blood Pressure 108/63 Blood Pressure [Left Arm] 108/63 Blood Pressure [Orthostatic Lying] 106/65 Blood Pressure [Orthostatic Sitting] 85/55 L Blood Pressure [Orthostatic Standing] 90/53 L Pulse Oximetry 98 97 MDM - Dizziness <Trupti Wood DO - Last Filed: 12/11/19 07:31> Lab Data Attestation: I reviewed the patient's lab results. Result diagrams: 12/11/19 02:55 12/11/19 02:55 Labs: Lab Results 12/11/19 12/11/19 12/11/19 Range/Units 02:55 02:55 02:55 WBC 9.5 (4.5-11.0) X10^3/uL RBC 3.97 L (4.5-5.9) X10^6/uL Hgb 11.1 L (13.5-17.5) g/dL Hct 34.1 L (41-53) % MCV 85.9 (80-100) fL MCH 28.0 (26-34) PG MCHC 32.6 (30-36) % RDW 16.1 H (11.6-14.8) % Plt Count 279 (150-400) X10^3/uL Neut % (Auto) Not Reportable Lymph % (Auto) Not Reportable Murray % (Auto) Not Reportable Eos % (Auto) Not Reportable Baso % (Auto) Not Reportable Lymph # (Auto) Not Reportable Murray # (Auto) Not Reportable Baso # (Auto) Not Reportable Total Counted 100 Seg Neutrophils % 80.0 H (38-70) % Band Neutrophils % 1.0 L (3-7) % Lymphocytes % (Manual) 10.0 L (25-45) % Monocytes % (Manual) 5.0 (2-11) % Eosinophils % (Manual) 4.0 (2-4) % Neutrophils # (Manual) 7695 H (4894-9952) /uL RBC Morphology See below Anisocytosis 1+ H Ovalocytes 1+ H Clayton Cells 1+ H Acanthocytes (Spur) 1+ PT 28.9 H (10.1-12.7) SECONDS INR 2.5 H (0.9-1.3) APTT 36 D (26.4-36.2) SECONDS Sodium 138 (137-145) mmol/L Potassium 3.6 (3.4-5.1) mmol/L Chloride 105 (98-107) mmol/L Carbon Dioxide 24 (22-32) mmol/L BUN 58 H (9-20) mg/dL Creatinine 2.70 H (0.66-1.25) mg/dL Estimated GFR 23.0 L (>60) mL/min BUN/Creatinine Ratio 21.5 (6-22) Glucose 131 H (80-110) mg/dL Calcium 8.5 (8.4-10.2) mg/dL Magnesium (1.6-2.3) mg/dL Total Bilirubin 0.5 (0.2-1.3) mg/dL AST 15 L (17-59) IU/L ALT 13 (<50) IU/L Alkaline Phosphatase 80 (38-126) U/L Total Creatine Kinase 22 L (55-170) U/L CK-MB (CK-2) TNP CK-MB (CK-2) Rel Index TNP Troponin I 0.025 (0.01-0.034) ng/mL NT-Pro-B Natriuret Pep (<450) pg/mL Total Protein 6.3 (6.3-8.2) g/dL Albumin 3.2 L (3.5-5.0) g/dL Globulin 3.1 (1.7-4.1) g/dL Albumin/Globulin Ratio 1.0 (1.0-2.8) Lipase 166 (23-300) U/L 12/11/19 12/11/19 12/11/19 Range/Units 02:55 04:45 04:45 WBC (4.5-11.0) X10^3/uL RBC (4.5-5.9) X10^6/uL Hgb (13.5-17.5) g/dL Hct (41-53) % MCV (80-100) fL MCH (26-34) PG MCHC (30-36) % RDW (11.6-14.8) % Plt Count (150-400) X10^3/uL Neut % (Auto) Lymph % (Auto) Murray % (Auto) Eos % (Auto) Baso % (Auto) Lymph # (Auto) Murray # (Auto) Baso # (Auto) Total Counted Seg Neutrophils % (38-70) % Band Neutrophils % (3-7) % Lymphocytes % (Manual) (25-45) % Monocytes % (Manual) (2-11) % Eosinophils % (Manual) (2-4) % Neutrophils # (Manual) (3299-5734) /uL RBC Morphology Anisocytosis Ovalocytes Clayton Cells Acanthocytes (Spur) PT (10.1-12.7) SECONDS INR (0.9-1.3) APTT (26.4-36.2) SECONDS Sodium (137-145) mmol/L Potassium (3.4-5.1) mmol/L Chloride (98-107) mmol/L Carbon Dioxide (22-32) mmol/L BUN (9-20) mg/dL Creatinine (0.66-1.25) mg/dL Estimated GFR (>60) mL/min BUN/Creatinine Ratio (6-22) Glucose (80-110) mg/dL Calcium (8.4-10.2) mg/dL Magnesium 2.1 (1.6-2.3) mg/dL Total Bilirubin (0.2-1.3) mg/dL AST (17-59) IU/L ALT (<50) IU/L Alkaline Phosphatase (38-126) U/L Total Creatine Kinase 25 L (55-170) U/L CK-MB (CK-2) TNP CK-MB (CK-2) Rel Index TNP Troponin I 0.026 (0.01-0.034) ng/mL NT-Pro-B Natriuret Pep 4250 H (<450) pg/mL Total Protein (6.3-8.2) g/dL Albumin (3.5-5.0) g/dL Globulin (1.7-4.1) g/dL Albumin/Globulin Ratio (1.0-2.8) Lipase (23-300) U/L Imaging Data Chest x-ray: My Impression: cardiomegaly, leads appear appropriate, no pleural effusion or pneumthorax. nap. ECG Data Attestation: I personally reviewed and interpreted this ECG as follows: Prior ECG tracings: available for review Interpretation: Ventricularly paced rhythm with a rate of 69 QRS of 116 QTC of 444. Patient has elevation in 1 aVL but less than 1 mm with some depression in 3 and AVF. Patient has nonspecific change in paced rhythm. Patient's telemetry appears to show ventricular tachycardia about a rate of 150 which patient appears to have been paced out of that rhythm and returned to rate in the 60's. EKG 2. Shows ventricularly paced rhythm with a rate of 69 QRS of 130 and QTC of 397 EKG findings appears similar to those from his prior EKG today including some elevation that is about a mm in V6. Patient has the same on his 1st EKG. [facility] Narrative Medical decision making narrative: Patient's EKG x2 shows a paced rhythm and appears similar to priors. Troponin is negative x2 patient has had dizziness b ut no chest pain or shortness of breath his hemoglobin is 11 typically runs in the 13 range last 1 was checked in September of 2018 with no elevation in white count. Normal platelets INR is 2.5, creatinine is 2.7 his past was 2.5 in September BUN is 58 with electrolytes in normal range. Mag is 2.1. BNP is 4250 although patient does not seem clinically overloaded in terms of fluid and his a little bit hypotensive in the department. Orthostatics patient has a drop with sitting but then improves with standing. Heart rate changes from 68-80 with a 10 point drop. Patient had a run of Vtach which appears to be paced out of by his defib/pacemaker. Spoke with Dr. Hernandez from patient's Cardiology team and she asked that we interrogate his pacemaker. He has had [facility] and then recontact them. pacemaker interrogation is pending and signed out to Dr. Talamantes to follow up interrogation with cardiology for any additional recomendations. <Alejo Talamantes, DO - Last Filed: 12/11/19 08:18> Lab Data Labs: Lab Results 12/11/19 12/11/19 12/11/19 Range/Units 02:55 02:55 02:55 WBC 9.5 (4.5-11.0) X10^3/uL RBC 3.97 L (4.5-5.9) X10^6/uL Hgb 11.1 L (13.5-17.5) g/dL Hct 34.1 L (41-53) % MCV 85.9 (80-100) fL MCH 28.0 (26-34) PG MCHC 32.6 (30-36) % RDW 16.1 H (11.6-14.8) % Plt Count 279 (150-400) X10^3/uL Neut % (Auto) Not Reportable Lymph % (Auto) Not Reportable Murray % (Auto) Not Reportable Eos % (Auto) Not Reportable Baso % (Auto) Not Reportable Lymph # (Auto) Not Reportable Murray # (Auto) Not Reportable Baso # (Auto) Not Reportable Total Counted 100 Seg Neutrophils % 80.0 H (38-70) % Band Neutrophils % 1.0 L (3-7) % Lymphocytes % (Manual) 10.0 L (25-45) % Monocytes % (Manual) 5.0 (2-11) % Eosinophils % (Manual) 4.0 (2-4) % Neutrophils # (Manual) 7695 H (0521-5505) /uL RBC Morphology See below Anisocytosis 1+ H Ovalocytes 1+ H Trina Cells 1+ H Acanthocytes (Spur) 1+ PT 28.9 H (10.1-12.7) SECONDS INR 2.5 H (0.9-1.3) APTT 36 D (26.4-36.2) SECONDS Sodium 138 (137-145) mmol/L Potassium 3.6 (3.4-5.1) mmol/L Chloride 105 (98-107) mmol/L Carbon Dioxide 24 (22-32) mmol/L BUN 58 H (9-20) mg/dL Creatinine 2.70 H (0.66-1.25) mg/dL Estimated GFR 23.0 L (>60) mL/min BUN/Creatinine Ratio 21.5 (6-22) Glucose 131 H (80-110) mg/dL Calcium 8.5 (8.4-10.2) mg/dL Magnesium (1.6-2.3) mg/dL Total Bilirubin 0.5 (0.2-1.3) mg/dL AST 15 L (17-59) IU/L ALT 13 (<50) IU/L Alkaline Phosphatase 80 (38-126) U/L Total Creatine Kinase 22 L (55-170) U/L CK-MB (CK-2) TNP CK-MB (CK-2) Rel Index TNP Troponin I 0.025 (0.01-0.034) ng/mL NT-Pro-B Natriuret Pep (<450) pg/mL Total Protein 6.3 (6.3-8.2) g/dL Albumin 3.2 L (3.5-5.0) g/dL Globulin 3.1 (1.7-4.1) g/dL Albumin/Globulin Ratio 1.0 (1.0-2.8) Lipase 166 (23-300) U/L 12/11/19 12/11/19 12/11/19 Range/Units 02:55 04:45 04:45 WBC (4.5-11.0) X10^3/uL RBC (4.5-5.9) X10^6/uL Hgb (13.5-17.5) g/dL Hct (41-53) % MCV (80-100) fL MCH (26-34) PG MCHC (30-36) % RDW (11.6-14.8) % Plt Count (150-400) X10^3/uL Neut % (Auto) Lymph % (Auto) Murray % (Auto) Eos % (Auto) Baso % (Auto) Lymph # (Auto) Murray # (Auto) Baso # (Auto) Total Counted Seg Neutrophils % (38-70) % Band Neutrophils % (3-7) % Lymphocytes % (Manual) (25-45) % Monocytes % (Manual) (2-11) % Eosinophils % (Manual) (2-4) % Neutrophils # (Manual) (4284-5837) /uL RBC Morphology Anisocytosis Ovalocytes Trina Cells Acanthocytes (Spur) PT (10.1-12.7) SECONDS INR (0.9-1.3) APTT (26.4-36.2) SECONDS Sodium (137-145) mmol/L Potassium (3.4-5.1) mmol/L Chloride (98-107) mmol/L Carbon Dioxide (22-32) mmol/L BUN (9-20) mg/dL Creatinine (0.66-1.25) mg/dL Estimated GFR (>60) mL/min BUN/Creatinine Ratio (6-22) Glucose (80-110) mg/dL Calcium (8.4-10.2) mg/dL Magnesium 2.1 (1.6-2.3) mg/dL Total Bilirubin (0.2-1.3) mg/dL AST (17-59) IU/L ALT (<50) IU/L Alkaline Phosphatase (38-126) U/L Total Creatine Kinase 25 L (55-170) U/L CK-MB (CK-2) TNP CK-MB (CK-2) Rel Index TNP Troponin I 0.026 (0.01-0.034) ng/mL NT-Pro-B Natriuret Pep 4250 H (<450) pg/mL Total Protein (6.3-8.2) g/dL Albumin (3.5-5.0) g/dL Globulin (1.7-4.1) g/dL Albumin/Globulin Ratio (1.0-2.8) Lipase (23-300) U/L MDM Narrative Medical decision making narrative: Dr Talamantes: received turned over from Dr wood. review patient's history and physical. Interviewed the patient independently. We were able to interrogate his pacemaker. Since November 29 patient has had greater than 200 episodes of ventricular tachycardia that all have been paced terminated. Since yesterday he has had greater than 30 episodes. Patient does seem to become symptomatic from these. I did discuss the case with Dr. Smith who was the real estate representative on-call and also the patient's real estate representative. He recommended that we decrease his a diuretic in his blood pressure medicine. He is concerned that the patient is becoming hypotensive. The patient stated that he has an appointment with Dr. Smith tomorrow. Today he will decrease his lisinopril by half and also his diuretic by half. Cardiology will also get him in to see the dispatcher ship pilot. The patient expressed understanding of this. He stated that he would like to go home. He ambulated to the bathroom in the emergency department without problems. His pacemaker does appear to be working appropriately. Patient was given return precautions. He expressed understanding and agreement plan. Discharge Plan Departure Patient Disposition: Home Clinical Impression: Dizziness Activity Restrictions/Additional Instructions: Keep your appointment with Dr. Bruce that you already have scheduled tomorrow. Per his recommendations decrease your Torsemide from 40 mg a day to 20 mg a day. He would also like you to decrease your lisinopril to 1 time a day. continue all of your other medications as directed. Return to the emergency department for any new or worsening symptoms Prescriptions: No Action atorvastatin [Lipitor] 40 MG tablet 40 mg OR QPM Qty: 0 RF: 0 cyanocobalamin (vitamin B-12) 1,000 MCG tablet extended release 500 mcg OR Q DAY Qty: 0 RF: 0 nitroglycerin [Nitrostat] 0.4 MG tablet, sublingual 1 tab Sublingual PRN PRN (Reason: Chest Pain) Qty: 0 RF: 0 isosorbide mononitrate 30 MG tablet extended release 24 hr 30 mg OR HS Qty: 0 RF: 0 warfarin [Coumadin] 2.5 MG tablet 1 tab PO QPM Qty: 0 RF: 0 spironolactone [Aldactone] 25 MG tablet 12.5 mg PO QDAY Qty: 0 RF: 0 multivitamin [Multiple Vitamins] 1 EACH tablet 1 tab PO QDAY Qty: 0 RF: 0 aspirin 81 MG tablet,delayed release (DR/EC) 81 mg PO QDAY Qty: 0 RF: 0 carvedilol [Coreg] 6.25 MG tablet 3.125 mg PO BID Qty: 0 RF: 0 ferrous sulfate 325 mg (65 mg iron) tablet 1 tab PO DAILY RF: 0 albuterol sulfate 90 mcg/actuation HFA aerosol inhaler 1 puff Inhalation DIRECTED RF: 0 fluticasone propionate 110 mcg/actuation HFA aerosol inhaler 1 puff Inhalation DIRECTED RF: 0 torsemide 20 mg Tablet 40 mg PO DAILY RF: 0 hydrocodone-acetaminophen 5-325 mg tablet 1 tab PO Q4-6H PRN (Reason: pain) Qty: 14 RF: 0 Referrals: Nasir Wu MD [Primary Care Provider] -
--- NOTE | 2019-12-11 04:57 | PC.NURSE ---
Orthostatic BP's complete, pt tolerated well, no dizziness.
[2019-12-11 05:01] LABS: Creatine Kinase 25 U/L (55-170)
[2019-12-11 05:11] LABS: Troponin I 0.026 ng/mL (0.01-0.034)
[2019-12-11 05:27] LABS: NT-proBNP (BNP-Adult 18+) 4250 pg/mL (<450)
[2019-12-11 06:19] LABS: Magnesium 2.1 mg/dL (1.6-2.3)
[2019-12-11 06:34] LABS: Acanthocytes 1+; Anisocytosis 1+; Burr Cells 1+; Neutrophils Absolute Manual 7695 /uL (3000-5900); Ovalocytes 1+; Total Cells Counted 100
--- NOTE | 2019-12-11 08:07 | PC.NURSE ---
pt states he has had moments of bp lowering, but it usually corrects in minutes, this time it was nearly 3 hours so he called ems.
== END 2019-12-11 08:41 | disposition home or self-care (01) ==
PROVIDERS: Emergency Medicine; Emergency Provider Emergency Medicine; PCP Family Medicine
DX: R42 Dizziness and giddiness (principal); I95.9 Hypotension, unspecified; R07.9 Chest pain, unspecified
CPT/HCPCS: 36415; 71045; 80053; 82550; 83690; 83735; 83880; 84484; 85025; 85610; 85730; 93005; 99284; 99285

== ENCOUNTER → 2020-07-18 14:01 | Outpatient (CLI) | payer MEDICARE, OTHER, SELFPAY ==
[2018-07-17 10:22] VITALS: BMI 27.3
[2020-07-18 14:52] LABS: Add Manual Diff / Slide Review NO; Basophils Absolute Auto 100 /uL (0-100); Basophils Percent Auto 0.9 % (0-2); Eosinophils Absolute Auto 400 /uL (0-450); Hematocrit 46.3 % (41-53); Hemoglobin 15.5 g/dL (13.5-17.5); Lymphocytes Absolute Auto 1200 /uL (1100-4500); Lymphocytes Percent Auto 19.4 % (25-40); Mean Corpuscular HGB Conc 33.4 % (30-36); Mean Corpuscular Hemoglobin 29.4 PG (26-34); Mean Corpuscular Volume 87.8 fL (80-100); Monocytes Absolute Auto 700 /uL (0-900); Neutrophils Absolute Auto 3700 /uL (1500-7000); Neutrophils Percent Auto 61.7 % (50-75); Platelet Count 233 X10^3/uL (150-400); Red Blood Cell Count 5.27 X10^6/uL (4.5-5.9); Red Cell Distribution Width 16.7 % (11.6-14.8)
[2020-07-18 15:15] LABS: Alanine Aminotransferase 24 IU/L (<50); Albumin 3.8 g/dL (3.5-5.0); Albumin Globulin Ratio 1.4 (1.0-2.8); Alkaline Phosphatase 114 U/L (38-126); Aspartate Aminotransferase 31 IU/L (17-59); BUN Creatinine Ratio 16.9 (6-22); Bilirubin Total 1.2 mg/dL (0.2-1.3); Blood Urea Nitrogen 38 mg/dL (9-20); Calcium 8.7 mg/dL (8.4-10.2); Carbon Dioxide 30 mmol/L (22-32); Chloride 103 mmol/L (98-107); Estimated Glomerular Filt Rate 28.3 mL/min (>60); Globulin 2.8 g/dL (1.7-4.1); Glucose 109 mg/dL (80-110); HEMOLYSIS < 15 (0-50); Potassium 4.6 mmol/L (3.4-5.1); Sodium 140 mmol/L (137-145); Total Protein 6.6 g/dL (6.3-8.2); Uric Acid 5.5 mg/dL (3.5-8.5)
== END ==
PROVIDERS: PCP Family Medicine; Referring Provider Internal Medicine Rheumatology; Visit Provider Internal Medicine Rheumatology
DX: M10.9 Gout, unspecified (principal)
CPT/HCPCS: 36415; 80053; 84550; 85025

== ENCOUNTER → 2020-11-05 10:59 | Outpatient (CLI) | payer MEDICARE, OTHER, SELFPAY ==
[2018-07-17 10:22] VITALS: BMI 27.3
[2020-11-05 13:31] LABS: BUN Creatinine Ratio 11.7 (6-22); Blood Urea Nitrogen 26 mg/dL (9-20); Calcium 8.9 mg/dL (8.4-10.2); Carbon Dioxide 31 mmol/L (22-32); Chloride 108 mmol/L (98-107); Estimated Glomerular Filt Rate 28.7 mL/min (>60); Glucose 92 mg/dL (80-110); HEMOLYSIS < 15 (0-50); Potassium 4.5 mmol/L (3.4-5.1); Sodium 143 mmol/L (137-145)
== END ==
PROVIDERS: PCP Family Medicine; Referring Provider Internal Medicine Cardiovascular Disease; Visit Provider Internal Medicine Cardiovascular Disease
DX: I50.22 Chronic systolic (congestive) heart failure (principal)
CPT/HCPCS: 36415; 80048

== ENCOUNTER → 2021-01-28 08:41 | Outpatient (CLI) | payer MEDICARE, OTHER, SELFPAY ==
[2018-07-17 10:22] VITALS: BMI 27.3
[2021-01-28 10:43] LABS: BUN Creatinine Ratio 10.2 (6-22); Blood Urea Nitrogen 21 mg/dL (9-20); Calcium 9.1 mg/dL (8.4-10.2); Carbon Dioxide 30 mmol/L (22-32); Chloride 105 mmol/L (98-107); Cholesterol 150 mg/dL (140-199); Estimated Glomerular Filt Rate 31.5 mL/min (>60); Glucose 105 mg/dL (80-110); HDL Cholesterol 46 mg/dL (40-60); HEMOLYSIS < 15 (0-50); LDL Cholesterol Calculated 81 mg/dL (<100); Potassium 4.1 mmol/L (3.4-5.1); Sodium 142 mmol/L (137-145); Triglycerides 116 mg/dL (35-150)
== END ==
PROVIDERS: PCP Family Medicine; Referring Provider Internal Medicine Cardiovascular Disease; Visit Provider Internal Medicine Cardiovascular Disease
DX: E78.5 Hyperlipidemia, unspecified (principal)
CPT/HCPCS: 36415; 80048; 80061

== ENCOUNTER → 2021-07-14 08:41 | Outpatient (CLI) | payer MEDICARE, OTHER, SELFPAY ==
[2018-07-17 10:22] VITALS: BMI 27.3
--- NOTE | 2021-07-14 | DI.RAD.S_ITS ---
PROCEDURE: XR HIP W PEL IF DONE RT 2V INDICATIONS: RT HIP PAIN TECHNIQUE: AP pelvis with lateral view(s) of the right hip(s). COMPARISON: [facility], CR, XR HIP 2VW RT, 07/14/2016, 8:59. FINDINGS: Bones: No fractures or dislocations. Pelvic ring appears intact. No suspicious bony lesions. There is severe degenerative narrowing of the right hip with subchondral sclerosis and periarticular osteophyte formation. Is progressive since 2016. Moderate narrowing is present of the left hip also with periarticular osteophytes. Degenerative changes are present within the lower lumbar spine. Soft tissues: The visualized bowel gas pattern is normal. No suspicious soft tissue calcifications. 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 Dictated by: Roxanne Shelby M.D. on 07/14/2021 at 9:45 Approved by: Roxanne Shelby M.D. on 07/14/2021 at 9:46
--- NOTE | 2021-07-14 | DI.RAD.S_ITS ---
PROCEDURE: XR CHEST 2V INDICATIONS: Dyspnea on exertion TECHNIQUE: 2 views of the chest were acquired. COMPARISON: [facility], CT, KIDNEY/ URETER/BLADDER, 08/19/2016, 12:56. [facility], CR, XR CHEST 2 VIEWS, 05/30/2019, 10:04. [facility], CR, XR CHEST 1V, 12/11/2019, 2:41. [facility], CR, XR CHEST 1V, 10/18/2018, 14:58. FINDINGS: Surgical changes and devices: Left pacemaker. Post median sternotomy and CABG. Lungs and pleura: Suspect bibasilar airspace opacity. Blunting of the costophrenic angles. No pneumothorax. Mediastinum: Mediastinal contours are unchanged. Heart size is enlarged. Bones and chest wall: No suspicious bony abnormalities. Soft tissues appear unremarkable. IMPRESSION: 1. Small bilateral pleural effusions. 2. Bibasilar airspace opacity which appears similar to the prior exams. This could be due to atelectasis and/or scarring. Pneumonia could have a similar appearance. 3. Cardiomegaly. Dictated by: Branden Belle M.D. on 07/14/2021 at 9:47 Approved by: Branden Belle M.D. on 07/14/2021 at 9:51
== END ==
PROVIDERS: PCP Family Medicine; Referring Provider Family Medicine; Visit Provider Family Medicine
DX: R06.00 Dyspnea, unspecified (principal); M25.551 Pain in right hip; G89.29 Other chronic pain; J90 Pleural effusion, not elsewhere classified; I51.7 Cardiomegaly
CPT/HCPCS: 71046; 73502

== ENCOUNTER 2021-08-28 07:46 | Outpatient (RCR) | payer MEDICARE, OTHER, SELFPAY ==
[2018-07-17 10:22] VITALS: BMI 27.3
--- NOTE | 2021-08-28 08:42 | PT-OP ANOTE ---
Pt attends therapy today for initial evaluation for R hip pain. He reports being discharged last evening (4pm) from [facility] for a heart attack. States he was told there is something wrong with his heart, not his pacemaker. He states his pacemaker is good for 4 more years. He states his referring physician (PCP) is in the loop for his care, but he has not talked to his PCP. He will not follow up with his white goods appliance tech until next month. Discussed and recommended that the pt be seen for cardiac rehabilitation prior to physical therapy for his hip (due to exercise requirements with hip rehab). Pt agreeable and will contact his PCP for cardiac rehabilitation today.
== END 2021-09-02 13:17 ==
LOC: PHYS 07:46
PROVIDERS: Family Provider Family Medicine; PCP Family Medicine; Referring Provider Family Medicine; Visit Provider Family Medicine
DX: M16.11 Unilateral primary osteoarthritis, right hip (principal)

== ENCOUNTER → 2021-09-11 09:14 | Outpatient (CLI) | payer MEDICARE, OTHER, SELFPAY ==
[2018-07-17 10:22] VITALS: BMI 27.3
[2021-09-11 10:12] LABS: Add Manual Diff / Slide Review NO; Basophils Absolute Auto 0 /uL (0-100); Basophils Percent Auto 0.2 % (0-2); Eosinophils Absolute Auto 100 /uL (0-450); Eosinophils Percent Auto 0.7 % (2-4); Hematocrit 37.6 % (41-53); Hemoglobin 12.1 g/dL (13.5-17.5); Lymphocytes Absolute Auto 700 /uL (1100-4500); Lymphocytes Percent Auto 6.1 % (25-40); Mean Corpuscular HGB Conc 32.3 % (30-36); Mean Corpuscular Hemoglobin 25.9 PG (26-34); Mean Corpuscular Volume 80.2 fL (80-100); Monocytes Absolute Auto 500 /uL (0-900); Monocytes Percent Auto 4.3 % (3-14); Neutrophils Absolute Auto 10000 /uL (1500-7000); Neutrophils Percent Auto 88.7 % (50-75); Platelet Count 298 X10^3/uL (150-400); Red Blood Cell Count 4.68 X10^6/uL (4.5-5.9); Red Cell Distribution Width 20.4 % (11.6-14.8); White Blood Cell Count 11.2 X10^3/uL (4.5-11.0)
[2021-09-11 10:27] LABS: Alanine Aminotransferase 18 IU/L (<50); Albumin 3.9 g/dL (3.5-5.0); Albumin Globulin Ratio 1.4 (1.0-2.8); Alkaline Phosphatase 118 U/L (38-126); Aspartate Aminotransferase 22 IU/L (17-59); BUN Creatinine Ratio 15.9 (6-22); Bilirubin Total 0.7 mg/dL (0.2-1.3); Blood Urea Nitrogen 38 mg/dL (9-20); Carbon Dioxide 29 mmol/L (22-32); Chloride 104 mmol/L (98-107); Estimated Glomerular Filt Rate 26.3 mL/min (>60); Globulin 2.7 g/dL (1.7-4.1); Glucose 121 mg/dL (80-110); HEMOLYSIS < 15 (0-50); Potassium 4.9 mmol/L (3.4-5.1); Sodium 141 mmol/L (137-145); Total Protein 6.6 g/dL (6.3-8.2); Uric Acid 3.4 mg/dL (3.5-8.5)
[2021-09-11 10:52] LABS: Acanthocytes 1+; Poikilocytosis 3+
[2021-09-11 10:53] LABS: Ovalocytes 1+
== END ==
PROVIDERS: Family Provider Family Medicine; PCP Family Medicine; Referring Provider Specialist/Technologist Athletic Trainer; Visit Provider Specialist/Technologist Athletic Trainer
DX: M10.9 Gout, unspecified (principal)
CPT/HCPCS: 36415; 80053; 84550; 85025

== ENCOUNTER → 2022-01-07 08:12 | Outpatient (CLI) | payer MEDICARE, OTHER, SELFPAY ==
[2018-07-17 10:22] VITALS: BMI 27.3
[2022-01-07 10:34] LABS: BUN Creatinine Ratio 14.5 (6-22); Blood Urea Nitrogen 36 mg/dL (9-20); Carbon Dioxide 26 mmol/L (22-32); Chloride 111 mmol/L (98-107); Estimated Glomerular Filt Rate 25.1 mL/min (>60); Glucose 102 mg/dL (80-110); HEMOLYSIS < 15 (0-50); Potassium 4.3 mmol/L (3.4-5.1); Sodium 145 mmol/L (137-145)
== END ==
PROVIDERS: Family Provider Family Medicine; PCP Family Medicine; Referring Provider Internal Medicine Cardiovascular Disease; Visit Provider Internal Medicine Cardiovascular Disease
DX: I50.22 Chronic systolic (congestive) heart failure (principal)
CPT/HCPCS: 36415; 80048

== ENCOUNTER → 2022-01-14 06:36 | Outpatient (CLI) | payer MEDICARE, OTHER, SELFPAY ==
[2018-07-17 10:22] VITALS: BMI 27.3
[2022-01-14 07:40] LABS: COVID19 -Nasal RAPID Negative (Negative)
== END ==
PROVIDERS: Family Provider Family Medicine; PCP Family Medicine; Referring Provider Internal Medicine; Visit Provider Internal Medicine
DX: Z20.822 Contact with and (suspected) exposure to COVID-19 (principal)
CPT/HCPCS: 87635; C9803

== ENCOUNTER → 2022-01-15 06:34 | Outpatient (CLI) | payer MEDICARE, OTHER, SELFPAY ==
[2018-07-17 10:22] VITALS: BMI 27.3
--- NOTE | 2022-01-20 10:32 | PM.PFT.1 ---
Pulmonary Function Test Referral & Results Date Patient Seen: 01/15/22 Requesting provider: Marvin Bruce Results: The spirometry demonstrates an FVC of 2.49 L which is 59% of predicted. The FEV1 was measured at 1.44 L which is 48% of predicted. The FEV1/FVC ratio was 58 which is 81% of predicted. Following the administration of bronchodilator there was an 8 % improvement in FEV1 and a 43% improvement in FEF 25-75% Lung volumes show an SVC of 2.3 L which is 52% of predicted. The diffusing capacity was measured at 12.0 which is 35% of predicted. No hemoglobin value was provided, so no correction for potential anemia could be made, if appropriate. The maximum voluntary ventilation was reduced Interpretation: This study demonstrates moderate obstructive lung disease based on reduction FEV1 although FEV1/FVC ratio is relatively preserved. There is some evidence of limited benefit following bronchodilator particularly small airway flow based on improvement in FEF 25-75% as above There is also moderately severe reduction in lung volumes suggesting significant restrictive lung disease which may well explain abnormalities in FEV1 above There is a much more severe reduction diffusing capacity suggesting significant disease at the capillary alveolar level to the point where patient may well be hypoxic at times on room air Clinical correlation suggested Compared to PFTs performed in February 2018, current spirometry is essentially unchanged although diffusing capacity is more significant reduced on current study than previous
== END ==
PROVIDERS: Family Provider Family Medicine; PCP Family Medicine; Referring Provider Internal Medicine Cardiovascular Disease; Visit Provider Internal Medicine Cardiovascular Disease
DX: J44.9 Chronic obstructive pulmonary disease, unspecified (principal); Z79.899 Other long term (current) drug therapy
CPT/HCPCS: 94060; 94726; 94729

== ENCOUNTER 2022-03-03 08:30 | Outpatient (RCR) | payer MEDICARE, OTHER, SELFPAY ==
[2018-07-17 10:22] VITALS: BMI 27.3
== END 2022-03-03 10:30 ==
LOC: CAR 08:30
PROVIDERS: Family Provider Family Medicine; PCP Family Medicine; Referring Provider Internal Medicine Cardiovascular Disease; Visit Provider Internal Medicine Cardiovascular Disease
DX: I50.22 Chronic systolic (congestive) heart failure (principal)
CPT/HCPCS: 93798

== ENCOUNTER → 2022-03-09 11:24 | Outpatient (CLI) | payer MEDICARE, OTHER, SELFPAY ==
[2018-07-17 10:22] VITALS: BMI 27.3
[2022-03-09 14:44] LABS: BUN Creatinine Ratio 15.2 (6-22); Blood Urea Nitrogen 48 mg/dL (9-20); Calcium 8.4 mg/dL (8.4-10.2); Carbon Dioxide 31 mmol/L (22-32); Chloride 103 mmol/L (98-107); Estimated Glomerular Filt Rate 19 mL/min (>60); Glucose 100 mg/dL (80-110); HEMOLYSIS < 15 (0-50); Potassium 3.8 mmol/L (3.4-5.1); Sodium 143 mmol/L (137-145)
== END ==
PROVIDERS: Family Provider Family Medicine; PCP Family Medicine; Referring Provider Nurse Practitioner Acute Care; Visit Provider Nurse Practitioner Acute Care
DX: I50.22 Chronic systolic (congestive) heart failure (principal)
CPT/HCPCS: 36415; 80048

== ENCOUNTER → 2022-03-24 11:58 | Outpatient (CLI) | payer MEDICARE, OTHER, SELFPAY ==
[2018-07-17 10:22] VITALS: BMI 27.3
--- NOTE | 2022-03-24 12:01 | DI.RAD.S_ITS ---
PROCEDURE: XR CHEST 2V INDICATIONS: progressive sob TECHNIQUE: 2 views of the chest were acquired. COMPARISON: [facility], CR, XR CHEST 1 VIEW, 11/09/2021, 15:40. FINDINGS: Surgical changes and devices: Left chest wall AICD is stable.. Lungs and pleura: Trace recurrent bilateral pleural fluid collections versus pleural scarring is stable compared to November 09, 2021. Increased opacification of the lung bases bilaterally. Mediastinum: Mediastinal contours are normal. Heart size is normal. Bones and chest wall: No suspicious bony abnormalities. Soft tissues appear unremarkable. IMPRESSION: Increasing bibasilar opacification compatible atelectasis versus pneumonia. Dictated by: Rizwana Callahan MD, PhD on 03/24/2022 at 15:30 Approved by: Rizwana Callahan MD, PhD on 03/24/2022 at 15:31
[2022-03-24 13:43] LABS: Add Manual Diff / Slide Review NO; Basophils Absolute Auto 100 /uL (0-100); Basophils Percent Auto 1.2 % (0-2); Eosinophils Absolute Auto 600 /uL (0-450); Eosinophils Percent Auto 8.4 % (2-4); Hematocrit 31.5 % (41-53); Hemoglobin 9.9 g/dL (13.5-17.5); Lymphocytes Absolute Auto 600 /uL (1100-4500); Lymphocytes Percent Auto 8.8 % (25-40); Mean Corpuscular HGB Conc 31.3 % (30-36); Mean Corpuscular Hemoglobin 24.1 PG (26-34); Mean Corpuscular Volume 77.1 fL (80-100); Monocytes Absolute Auto 900 /uL (0-900); Neutrophils Absolute Auto 4400 /uL (1500-7000); Neutrophils Percent Auto 67.6 % (50-75); Platelet Count 351 X10^3/uL (150-400); Red Blood Cell Count 4.08 X10^6/uL (4.5-5.9); White Blood Cell Count 6.5 X10^3/uL (4.5-11.0)
[2022-03-24 14:16] LABS: Alanine Aminotransferase 22 IU/L (<50); Albumin 3.6 g/dL (3.5-5.0); Albumin Globulin Ratio 1.2 (1.0-2.8); Alkaline Phosphatase 126 U/L (38-126); Aspartate Aminotransferase 30 IU/L (17-59); BUN Creatinine Ratio 18.3 (6-22); Blood Urea Nitrogen 60 mg/dL (9-20); Calcium 8.4 mg/dL (8.4-10.2); Carbon Dioxide 29 mmol/L (22-32); Chloride 105 mmol/L (98-107); Estimated Glomerular Filt Rate 18 mL/min (>60); Globulin 2.9 g/dL (1.7-4.1); Glucose 111 mg/dL (80-110); HEMOLYSIS < 15 (0-50); Potassium 4.1 mmol/L (3.4-5.1); Sodium 143 mmol/L (137-145); Total Protein 6.5 g/dL (6.3-8.2)
[2022-03-24 14:22] LABS: NT-proBNP (BNP-Adult 18+) 6420 pg/mL (<450)
[2022-03-24 15:10] LABS: Free T4, Direct Thyroxine 0.97 ng/dL (0.78-2.19)
== END ==
PROVIDERS: Family Provider Family Medicine; PCP Family Medicine; Referring Provider Family Medicine; Visit Provider Family Medicine
DX: N18.9 Chronic kidney disease, unspecified (principal); J90 Pleural effusion, not elsewhere classified; I50.9 Heart failure, unspecified; Z95.810 Presence of automatic (implantable) cardiac defibrillator
CPT/HCPCS: 36415; 71046; 80053; 83880; 84439; 84443; 85025

== ENCOUNTER 2022-04-07 09:31 | Emergency (ER) | payer MEDICARE, OTHER, SELFPAY ==
[2018-07-17 10:22] VITALS: BMI 27.3
[2022-04-07] VITALS (11 sets, daily range): BP systolic 111–135; BP diastolic 66–76; PULSE 69–77; RESP 17–28; TEMP 36.7; O2SAT 94–98; BMI 34.7
--- NOTE | 2022-04-07 09:38 | DI.RAD.S_ITS ---
PROCEDURE: XR CHEST 2V INDICATIONS: shortness of breath TECHNIQUE: 2 views of the chest were acquired. COMPARISON: [facility], , XR CHEST 2V, 03/24/2022, 12:10. FINDINGS: Surgical changes and devices: Postsurgical changes from median sternotomy and CABG. A cardiac pacemaker is seen with pulse generator in the left chest. Lungs and pleura: Diffuse bilateral interstitial prominence and airspace opacities are seen. There is haziness at the left lung base with poor visualization of the left hemidiaphragm. Possible trace right pleural effusion. No pneumothorax. Mediastinum: Mediastinal contours are normal. Heart size is enlarged. Bones and chest wall: No suspicious bony abnormalities. Soft tissues appear unremarkable. IMPRESSION: Cardiomegaly and bilateral interstitial prominence and patchy opacities are suspicious for pulmonary edema. Probable small bilateral pleural effusions. Dictated by: Diego Castillo M.D. on 04/07/2022 at 10:45 Approved by: Diego Castillo M.D. on 04/07/2022 at 10:47
--- NOTE | 2022-04-07 09:39 | ED_ITS ---
HPI - SOB/Dyspnea General Chief Complaint: Shortness of Breath/Dyspnea Stated Complaint: swelling in legs Time Seen by Provider: 04/07/22 09:38 History of Present Illness HPI Narrative: 82-year-old male former smoker with extensive medical history including AFib on anticoagulation, ischemic cardiomyopathy, CHF, chronic renal insufficiency presents at the request of his primary care provider for evaluation. He has had increasing shortness of breath and fatigue over the past few months and reports a 40 lb weight gain. He states he becomes significantly short of breath with exertion but denies any orthopnea. He has had no runny nose, sore throat or cough. He denies any fever or chills. He denies nausea, vomiting or diarrhea. He states that he has had increased swelling in both of his lower extremities and even his abdomen as of late. He has been taking his medications as directed and states that he is currently taking torsemide 40 mg in the morning and another 20 mg in the afternoon. He denies any chest pain, dizziness, lightheadedness or unexplained diaphoresis. Related Data Home Medications Medication Instructions Recorded Confirmed atorvastatin 40 mg tablet (Lipitor) 40 mg OR QPM ##0 08/19/16 04/07/22 isosorbide mononitrate 30 mg 30 mg OR HS ##0 08/19/16 04/07/22 tablet,extended release 24 hr nitroglycerin 0.4 mg sublingual 1 tab sublingual PRN PRN Chest 08/19/16 04/07/22 tablet (Nitrostat) Pain ##0 aspirin 81 mg tablet,delayed 81 mg PO QDAY ##0 12/28/17 04/07/22 release multivitamin (Multiple Vitamins 1 tab PO QDAY ##0 12/28/17 04/07/22 tablet) albuterol sulfate 90 mcg/actuation 2 puff inhalation Q6H PRN 03/24/22 04/07/22 aerosol inhaler (Ventolin HFA) amiodarone 200 mg tablet 100 mg PO DAILY 03/24/22 04/07/22 febuxostat 80 mg tablet 80 mg PO DAILY 03/24/22 04/07/22 hydralazine 10 mg tablet 10 mg PO TID 03/24/22 04/07/22 metoprolol succinate 100 mg 50 mg PO DAILY 03/24/22 04/07/22 tablet,extended release 24 hr warfarin 1 mg tablet 1 mg PO 3XW 03/24/22 04/07/22 sacubitril 49 mg-valsartan 51 mg 0.5 tab PO BID 04/07/22 04/07/22 tablet (Entresto) Previous Rx's Medication Instructions Recorded cyanocobalamin (vitamin B-12) 1,000 mcg PO Q DAY #90 tabs 03/24/22 1,000 mcg tablet,extended release levothyroxine 25 mcg capsule 25 mcg PO DAILY #30 caps 03/24/22 torsemide 20 mg tablet 20 mg PO DAILY #60 tabs 03/24/22 Allergies Allergy/AdvReac Type Severity Reaction Status Date / Time No Known Drug Allergies Allergy Verified 04/07/22 09:46 Review of Systems Review of Systems Narrative: GENERAL: See HPI HEENT: Denies sinus pain, ear pain, sore throat, difficulty swallowing, dizziness. RESPIRATORY: See HPI CARDIOVASCULAR: See HPI GASTROINTESTINAL: Denies nausea, vomiting, abdominal pain, diarrhea, constipation, melena. : Denies dysuria, frequency, incontinence, hematuria, urinary retention. MUSCULOSKELETAL: denies weakness, joint pain, or bony pain SKIN: Denies rash, skin lesions, or other NEUROLOGIC: Denies weakness, headache, numbness, change in speech, confusion, seizures, incoordination. PSYCHIATRIC: No concerning psychosocial issues. 12 point review of systems is negative except for those stated above Patient History Medical History Afib CAD (coronary atherosclerotic disease) Gout Ischemic cardiomyopathy Pleural effusion Pleural effusion Surgical History Hx of CABG Family History Father Myocardial infarction Stroke Mother Colostomy and enterostomy complications Social History household members: none Smoking Status: Former smoker alcohol intake: former Smoking Status: Former smoker alcohol intake frequency: holidays/special occasions only Substance Use Type: does not use Exam Narrative Exam Narrative: GENERAL: [82] year old patient appears stated age. Well-developed patient, in mild distress. GCS 15, no exertional dyspnea or hypoxemia HEAD: Atraumatic. Normocephalic. EYES: Pupils equal round and reactive. Extraocular motions intact. No scleral icterus. No injection or drainage. ENT: Nose without bleeding, purulent drainage. Throat without erythema, tonsillar hypertrophy or exudate. Airway patent. NECK: Trachea midline. Non tender CARDIOVASCULAR: Regular rate and rhythm without murmurs, gallops, or rubs. RESPIRATORY: No significant increased work of breathing, decreased breath so unds bilaterally with faint crackles and bilateral mid lungs, no use of accessory muscles. GASTROINTESTINAL: Abdomen soft, non-tender, nondistended. EXTREMITIES: 2+ pitting edema bilateral lower extremities BACK: Nontender without deformity or crepitance. No flank tenderness. NEURO: AOx3. SKIN: No rash or erythema of visible areas Initial Vital Signs Initial Vital Signs: Vital Signs Temperature 98.0 F 04/07/22 09:35 Pulse Rate 69 04/07/22 09:35 Respiratory Rate 19 04/07/22 09:35 Blood Pressure 122/76 04/07/22 09:35 Pulse Oximetry 97 04/07/22 09:35 Oxygen Delivery Method 04/07/22 09:35 Course Orders Ordered: ED Orders 04/07/22 09:38 XR chest 2V Stat EKG-12 Lead Stat Measure peak expiratory flow ONCE RT Consult Eval and Treat Now 04/07/22 09:50 Complete Blood Count AUTO DIFF Stat Comprehensive Metabolic Panel Stat Lactate (Lactic Acid) Stat MAG [Magnesium] Stat NT-proBNP (BNP-Adult 18+) Stat Procalcitonin Stat Prothrombin Time INR Stat Troponin & CK Cardiac Panel Stat 04/07/22 10:00 COVID19 -Nasal RAPID/Pre-Proc Stat Discontinued Medications Furosemide (Furosemide 40 Mg/4 Ml Vial) 40 mg IV NOW ONE Stop: 04/07/22 09:50 Last Admin: 04/07/22 09:58 Dose: 40 mg Documented By: IGNACIA Furosemide (Furosemide 100 Mg/10 Ml Vial) 60 mg IV NOW ONE Stop: 04/07/22 11:55 Last Admin: 04/07/22 12:16 Dose: 60 mg Documented By: SB Vital Signs Vital signs: Vital Signs - 8 hr 04/07/22 09:35 04/07/22 09:38 04/07/22 09:41 Temperature 98.0 F Pulse Rate 69 70 70 Respiratory Rate 19 19 Blood Pressure 122/76 Pulse Oximetry 97 94 98 Oxygen Delivery Method Room Air 04/07/22 09:41 04/07/22 10:00 04/07/22 10:00 Temperature Pulse Rate 71 Respiratory Rate 20 Blood Pressure 122/76 135/75 Pulse Oximetry 98 Oxygen Delivery Method 04/07/22 10:30 04/07/22 11:00 04/07/22 11:30 Temperature Pulse Rate 77 69 69 Respiratory Rate 17 18 28 H Blood Pressure Pulse Oximetry 97 96 96 Oxygen Delivery Method 04/07/22 12:00 04/07/22 12:30 04/07/22 12:56 Temperature Pulse Rate 71 75 70 Respiratory Rate 27 H 22 17 Blood Pressure Pulse Oximetry 96 95 95 Oxygen Delivery Method 04/07/22 12:56 04/07/22 13:00 Temperature Pulse Rate 69 Respiratory Rate 25 H Blood Pressure 111/66 Pulse Oximetry 96 Oxygen Delivery Method MDM - SOB/Dyspnea Lab Data Result diagrams: 04/07/22 09:50 04/07/22 09:50 Labs: Lab Results 04/07/22 04/07/22 04/07/22 Range/Units 09:50 09:50 09:50 WBC 6.6 (4.5-11.0) X10^3/uL RBC 4.14 L (4.5-5.9) X10^6/uL Hgb 9.9 L (13.5-17.5) g/dL Hct 31.6 L (41-53) % MCV 76.2 L (80-100) fL MCH 24.0 L (26-34) PG MCHC 31.5 (30-36) % RDW 21.1 H (11.6-14.8) % Plt Count 385 (150-400) X10^3/uL Neut % (Auto) 68.0 (50-75) % Lymph % (Auto) 9.7 L (25-40) % [place] % (Auto) 14.9 H (3-14) % Eos % (Auto) 6.1 H (2-4) % Baso % (Auto) 1.3 (0-2) % Neut # (Auto) 4500 (9934-4664) /uL Lymph # (Auto) 600 L (5715-1847) /uL [place] # (Auto) 1000 H (0-900) /uL Eos # (Auto) 400 (0-450) /uL Baso # (Auto) 100 (0-100) /uL RBC Morphology Not Reportable Poikilocytosis 2+ H Anisocytosis 2+ H PT 32.0 H (10.1-12.7) SECONDS INR 2.8 H (0.9-1.3) Sodium 143 (137-145) mmol/L Potassium 3.5 (3.4-5.1) mmol/L Chloride 105 (98-107) mmol/L Carbon Dioxide 29 (22-32) mmol/L BUN 66 H (9-20) mg/dL Creatinine 3.47 H (0.66-1.25) mg/dL Estimated GFR 17 L (>60) mL/min BUN/Creatinine Ratio 19.0 (6-22) Glucose 97 (80-110) mg/dL Lactate (0.7-2.1) mmol/L Calcium 8.4 (8.4-10.2) mg/dL Magnesium (1.6-2.3) mg/dL Total Bilirubin 1.4 H (0.2-1.3) mg/dL AST 40 (17-59) IU/L ALT 30 (<50) IU/L Alkaline Phosphatase 133 H (38-126) U/L Total Creatine Kinase (55-170) U/L CK-MB (CK-2) (<2.37) ng/mL CK-MB (CK-2) Rel Index (1.5-5.0) % Troponin I (0.01-0.034) ng/mL NT-Pro-B Natriuret Pep 7220 H (<450) pg/mL Total Protein 6.7 (6.3-8.2) g/dL Albumin 3.7 (3.5-5.0) g/dL Globulin 3.0 (1.7-4.1) g/dL Albumin/Globulin Ratio 1.2 (1.0-2.8) Procalcitonin (<0.5) ng/mL SARS-CoV-2 (PCR) (Negative) 04/07/22 04/07/22 04/07/22 Range/Units 09:50 09:50 10:00 WBC (4.5-11.0) X10^3/uL RBC (4.5-5.9) X10^6/uL Hgb (13.5-17.5) g/dL Hct (41-53) % MCV (80-100) fL MCH (26-34) PG MCHC (30-36) % RDW (11.6-14.8) % Plt Count (150-400) X10^3/uL Neut % (Auto) (50-75) % Lymph % (Auto) (25-40) % [place] % (Auto) (3-14) % Eos % (Auto) (2-4) % Baso % (Auto) (0-2) % Neut # (Auto) (1605-6259) /uL Lymph # (Auto) (1772-1713) /uL [place] # (Auto) (0-900) /uL Eos # (Auto) (0-450) /uL Baso # (Auto) (0-100) /uL RBC Morphology Poikilocytosis Anisocytosis PT (10.1-12.7) SECONDS INR (0.9-1.3) Sodium (137-145) mmol/L Potassium (3.4-5.1) mmol/L Chloride (98-107) mmol/L Carbon Dioxide (22-32) mmol/L BUN (9-20) mg/dL Creatinine (0.66-1.25) mg/dL Estimated GFR (>60) mL/min BUN/Creatinine Ratio (6-22) Glucose (80-110) mg/dL Lactate 1.2 (0.7-2.1) mmol/L Calcium (8.4-10.2) mg/dL Magnesium 2.5 H (1.6-2.3) mg/dL Total Bilirubin (0.2-1.3) mg/dL AST (17-59) IU/L ALT (<50) IU/L Alkaline Phosphatase (38-126) U/L Total Creatine Kinase 222 H (55-170) U/L CK-MB (CK-2) 2.95 H (<2.37) ng/mL CK-MB (CK-2) Rel Index 1.3 L (1.5-5.0) % Troponin I 0.043 H (0.01-0.034) ng/mL NT-Pro-B Natriuret Pep (<450) pg/mL Total Protein (6.3-8.2) g/dL Albumin (3.5-5.0) g/dL Globulin (1.7-4.1) g/dL Albumin/Globulin Ratio (1.0-2.8) Procalcitonin 0.15 (<0.5) ng/mL SARS-CoV-2 (PCR) Negative (Negative) Imaging Data Chest x-ray: Radiologist's Impression: ? Chart Viewer Diagnostics Subcategory All Activity ??:?? All Time ??:?? All Subcategories Filter Laboratory Imaging Microbiology Pathology Blood Bank Tests Cardiovascular Other Specialty DATE TYPE STATUS REF RANGE/AUTHOR Hx 03/24/22 12:01 Chest X-Ray Signed Rizwana Callahan 07/14/21 00:00 Hip X-Ray Signed Roxanne Shelby 07/14/21 00:00 Chest X-Ray Signed Branden Belle 12/11/19 02:32 Chest X-Ray Signed Rizwana Callahan 12/11/19 01:16 Telemetry Strips ? 10/26/19 00:00 Elbow X-Ray Signed Gil Soto 02/16/19 08:[address] Signed Sebastien Dewey 02/16/19 08:14 Finger X-Ray Signed Rizwana Callahan 10/18/18 14:33 Chest X-Ray Signed Armando Oro 09/16/18 22:43 Chest X-Ray Signed Roxanne Shelby 09/13/18 19:25 Chest X-Ray Signed Anais Coronel 07/18/18 00:00 Thoracentesis Ultrasound Signed Israel Emerson 07/18/18 00:00 Chest X-Ray Signed Shekhar Colin 07/17/18 09:49 Telemetry Strips ? 07/17/18 08:08 Chest X-Ray Signed Roxanne Shelby 02/04/18 22:06 Radiology - Historical ? 12/30/17 00:00 Radiology - Historical ? 12/30/17 00:00 Radiology - Historical ? 12/29/17 00:00 Radiology - Historical ? 12/28/17 18:03 Radiology - Historical ? 12/28/17 00:00 Radiology - Historical ? 03/07/17 09:18 Radiology - Historical ? 08/19/16 12:21 Radiology - Historical ? 08/19/16 11:32 Radiology - Historical ? Raymond Gamble (Chris) ED 82, M?1940 MRN#? [id number] REG ER,?Main ED??R08?? 180.34cm 112.945kg BMI: 34.7kg/m? Shortness of Breath/Dyspnea Acc#? [id number] Resus Status Not Ordered Hx Avail Special Indicators No Data to Display Home Meds Not Confirmed Prescription Monitoring Program MEDICATIONS (INSTRUCTIONS) LAST TAKEN Active ??albuterol sulfate 90 mcg/actuation aerosol inhaler ??2 [id number] ??amiodarone 200 mg tablet ??100 mgPODAILY ??aspirin ??81 mgPOQDAY##0 ??atorvastatin [Lipitor] ??40 mgORQPM##0 ??cyanocobalamin (vitamin B-12) 1,000 mcg tablet,extended release ??1,000 mcgPOQ DAY#90 tabs ??febuxostat 80 mg tablet ??80 mgPODAILY ??hydralazine 10 mg tablet ??10 mgPOTID ??isosorbide mononitrate ??30 mgORHS##0 ??levothyroxine 25 mcg capsule ??25 mcgPODAILY#30 caps ??metoprolol succinate 100 mg tablet,extended release 24 hr ??50 mgPODAILY ??multivitamin [Multiple Vitamins] ??1 tabPOQDAY##0 ??nitroglycerin [Nitrostat] ??1 tabsublingualPRNPRNChest Pain##0 ??sacubitril 49 mg-valsartan 51 mg tablet ??0.5 tabPOBID ??torsemide 20 mg tablet ??20 mgPODAILY#60 tabs ??warfarin 1 mg tablet ??1 [id number] Allergies No Known Drug Allergies Problems ? ONSET Afib Gout Pleural effusion Ischemic cardiomyopathy Chronic systolic heart failure Hypoxia Chronic renal insufficiency Kidney stones, calcium oxalate CHF exacerbation Pleural effusion Congestive heart failure Tachypnea Dehydration Vital Signs Today 09:35 BP 122/76? Pulse 69? Resp 19? Temp 98.0 F? O2 Sat 19?L Delivery Room Air? Diagnostics Reports Raymond Gamble?(Harshad)??82??M??1940 ? Allergy/Adv: No Known Drug Allergies (More??) Close Chest X-Ray (Signed) Rizwana Callahan - 03/24/22 Hip X-Ray (Signed) Shelby,Roxanne - 07/14/21 Chest X-Ray (Signed) Branden Belle - 07/14/21 Chest X-Ray (Signed) Rizwana Callahan - 12/11/19 Telemetry Strips 12/11/19 Elbow X-Ray (Signed) Lisa Sotong - 10/26/[address] (Signed) MacoSebastien - 02/16/19 Finger X-Ray (Signed) Rizwana Callahan - 02/16/19 Chest X-Ray (Signed) Armando Oro - 10/18/18 Chest X-Ray (Signed) Roxanne Shelby - 09/16/18 Chest X-Ray (Signed) Anais Coronel - 09/13/18 Thoracentesis Ultrasound (Signed) Israel Emerson - 07/18/18 Chest X-Ray (Signed) Shekhar Colin - 07/18/18 Telemetry Strips 07/17/18 Chest X-Ray (Signed) Roxanne Shelby - 07/17/18 Radiology - Historical 02/04/18 Radiology - Historical 12/30/17 Radiology - Historical 12/30/17 Radiology - Historical 12/29/17 Radiology - Historical 12/28/17 Radiology - Historical 12/28/17 Radiology - Historical 03/07/17 Radiology - Historical 08/19/16 Radiology - Historical 08/19/16 Launch?[place] [address] XRay Report Signed Patient: Raymond Gamble MR#: [id number] : 1940 Acct:[id number] Age/Sex: 82 / M Date of Service: 03/24/22 Loc: RAD Accession Number: [id number] ?? Procedure: XR chest 2V Ordering Provider: Cleve Saleem D.O. PROCEDURE:? XR CHEST 2V ? INDICATIONS:? progressive sob ? TECHNIQUE:? 2 views of the chest were acquired.? ? COMPARISON:? [facility], , XR CHEST 1 VIEW, 11/09/2021, 15:40. ? FINDINGS:? ? Surgical changes and devices:? Left chest wall AICD is stable..? ? Lungs and pleura:? Trace recurrent bilateral pleural fluid collections versus pleural scarring is stable compared to November 09, 2021. Increased opacification of the lung bases bilaterally. ? Mediastinum:? Mediastinal contours are normal.? Heart size is normal.? ? Bones and chest wall:? No suspicious bony abnormalities.? Soft tissues appear unremarkable.? ? IMPRESSION:? Increasing bibasilar opacification compatible atelectasis versus pneumonia.? Dictated by: Rizwana Callahan MD, PhD on 03/24/2022 at 15:30 ? ? Approved by: Rizwana Callahan MD, PhD on 03/24/2022 at 15:31 ? MDM Narrative Medical decision making narrative: Patient with increasing shortness of breath and weight gain over many months. He has been slowly moving in the wrong direction and is without any acute or profound rapid change. He is resting comfortably and without need for supplemental oxygenation. His labs are largely at baseline. Have discussed the case with his cardiology group and we have reviewed the patient's recent history including visits to the primary office, cardiology office, echocardiogram among others. Recommendation is to diurese patient here in the emergency department with Lasix through the IV with a goal of upwards of 1 L dilute urine. Patient is producing urine after Lasix 60 mg (40 did little) continues to rest comfortably. He ambulates through the department without dropping his pulse ox, he does get winded at the end, but recovers quickly and states he made it further than he has been at home. Cardiology recommended increasing torsemide to 40 mg p.o. b.i.d.. Patient has appointment with Cardiology next week and has appointment with Nephrology next week. Return precautions discussed and questions answered to his apparent satisfaction Discharge Plan Departure Patient Disposition: Home Clinical Impression: Acute on chronic clinical systolic heart failure Instructions: DI for Heart Failure Activity Restrictions/Additional Instructions: *You have been diagnosed with [acute on chronic heart failure. As we discussed your history and physical exam, labs and imaging are reassuring. I have discus sed your case with both your primary care provider and cardiology group.] *What to do: *Please increase your Torsemide dosing to 40mg by mouth twice daily for the next 5-7 days. Otherwise, continue to take your regular medications as directed. *Please follow up with your security lead and lease operator next week as planned, however, let them know you were seen in the Emergency Department and that we ask that you be seen in follow up. We will electronically transmit a record of to day's note if your PCP is in our system *Return to Emergency Department if you should have any new, worsening or concerning symptoms Prescriptions: No Action atorvastatin [Lipitor] 40 MG tablet 40 mg OR QPM Qty: 0 nitroglycerin [Nitrostat] 0.4 MG tablet, sublingual 1 tab Sublingual PRN PRN (Reason: Chest Pain) Qty: 0 isosorbide mononitrate 30 MG tablet extended release 24 hr 30 mg OR HS Qty: 0 multivitamin [Multiple Vitamins] 1 EACH tablet 1 tab PO QDAY Qty: 0 aspirin 81 MG tablet,delayed release (DR/EC) 81 mg PO QDAY Qty: 0 cyanocobalamin (vitamin B-12) 1,000 mcg tablet extended release 1,000 mcg PO Q DAY Qty: 90 0RF Entresto 49-51 mg tablet 0.5 tab PO BID amiodarone 200 mg tablet 100 mg PO DAILY febuxostat 80 mg tablet 80 mg PO DAILY hydralazine 10 mg tablet 10 mg PO TID metoprolol succinate 100 mg tablet extended release 24 hr 50 mg PO DAILY albuterol sulfate [Ventolin HFA] 90 mcg/actuation HFA aerosol inhaler 2 puff inhalation Q6H PRN warfarin 1 mg tablet 1 mg PO 3XW Rx Instructions: Take 1 tablet . Tue and 1/2 tablet . torsemide 20 mg tablet 20 mg PO DAILY Qty: 60 5RF levothyroxine 25 mcg capsule 25 mcg PO DAILY Qty: 30 5RF Referrals: Marvin Bruce MD [Physician] - Cleve Saleem DO [Primary Care Provider] -
[2022-04-07 09:58] LABS: Add Manual Diff / Slide Review NO; Basophils Absolute Auto 100 /uL (0-100); Basophils Percent Auto 1.3 % (0-2); Eosinophils Absolute Auto 400 /uL (0-450); Eosinophils Percent Auto 6.1 % (2-4); Hematocrit 31.6 % (41-53); Hemoglobin 9.9 g/dL (13.5-17.5); Lymphocytes Absolute Auto 600 /uL (1100-4500); Lymphocytes Percent Auto 9.7 % (25-40); Mean Corpuscular HGB Conc 31.5 % (30-36); Mean Corpuscular Volume 76.2 fL (80-100); Monocytes Absolute Auto 1000 /uL (0-900); Monocytes Percent Auto 14.9 % (3-14); Neutrophils Absolute Auto 4500 /uL (1500-7000); Platelet Count 385 X10^3/uL (150-400); Red Blood Cell Count 4.14 X10^6/uL (4.5-5.9); Red Cell Distribution Width 21.1 % (11.6-14.8); White Blood Cell Count 6.6 X10^3/uL (4.5-11.0)
[2022-04-07] MEDS: FUROSEMIDE 40 MG/4 ML VIAL IV (09:58)
[2022-04-07 10:04] LABS: INR 2.8 (0.9-1.3)
[2022-04-07 10:08] LABS: Anisocytosis 2+; Creatine Kinase 222 U/L (55-170); Magnesium 2.5 mg/dL (1.6-2.3); Poikilocytosis 2+
[2022-04-07 10:09] LABS: Alanine Aminotransferase 30 IU/L (<50); Albumin 3.7 g/dL (3.5-5.0); Albumin Globulin Ratio 1.2 (1.0-2.8); Alkaline Phosphatase 133 U/L (38-126); Aspartate Aminotransferase 40 IU/L (17-59); Bilirubin Total 1.4 mg/dL (0.2-1.3); Blood Urea Nitrogen 66 mg/dL (9-20); Calcium 8.4 mg/dL (8.4-10.2); Carbon Dioxide 29 mmol/L (22-32); Chloride 105 mmol/L (98-107); Estimated Glomerular Filt Rate 17 mL/min (>60); Glucose 97 mg/dL (80-110); HEMOLYSIS < 15 (0-50); Potassium 3.5 mmol/L (3.4-5.1); Sodium 143 mmol/L (137-145); Total Protein 6.7 g/dL (6.3-8.2)
[2022-04-07 10:12] LABS: Lactate (Lactic Acid) 1.2 mmol/L (0.7-2.1)
[2022-04-07 10:18] LABS: NT-proBNP (BNP-Adult 18+) 7220 pg/mL (<450)
[2022-04-07 10:21] LABS: Troponin I 0.043 ng/mL (0.01-0.034)
[2022-04-07 10:23] LABS: CKMB % Relative Index 1.3 % (1.5-5.0); Creatine Kinase MB 2.95 ng/mL (<2.37)
[2022-04-07 10:25] LABS: Procalcitonin 0.15 ng/mL (<0.5)
[2022-04-07 10:28] LABS: COVID19 -Nasal RAPID Negative (Negative)
--- NOTE | 2022-04-07 10:41 | PC.NURSE ---
interrogated pts [facility] [employer] pacemaker
[2022-04-07] MEDS: FUROSEMIDE 100 MG/10 ML VIAL 60 MG IV (12:16)
--- NOTE | 2022-04-07 12:59 | PC.NURSE ---
Ambulation trial per MD Morin. Pt walked down [address] and back with use of his walker and this RN at side. Maintained saturation of 94% and above on room air. Heart rate was 66-70 while ambulating. Pt reported getting dizzy on the way back and became noticeably SOB. Pt reports similar episodes happen at home, and that I just sit and try to recover. Pt assisted to bed. RR 22. Call light within reach.
== END 2022-04-07 13:27 | disposition home or self-care (01) ==
PROVIDERS: Emergency Provider Emergency Medicine; Family Provider Family Medicine; PCP Family Medicine
DX: I50.23 Acute on chronic systolic (congestive) heart failure (principal); Z20.822 Contact with and (suspected) exposure to COVID-19
CPT/HCPCS: 36415; 71046; 80053; 82550; 82553; 83605; 83735; 83880; 84145; 84484; 85025; 85610; 87635; 93005; 93010; 96374; 96376; 99284; C9803; J1940

== ENCOUNTER 2022-05-06 09:18 | Emergency (ER) | payer MEDICARE, OTHER, SELFPAY ==
[2018-07-17 10:22] VITALS: BMI 27.3
[2022-05-06 09:23] VITALS: BP 117/79; PULSE 131; RESP 15; TEMP 35.9; O2SAT 93; BMI 34.7
--- NOTE | 2022-05-06 09:32 | DI.CT.S_ITS ---
PROCEDURE: CT HEAD/BRAIN WO CON INDICATIONS: fall with head injury TECHNIQUE: Noncontrast 4.5 mm thick angled axial sections acquired from the foramen magnum to the vertex, with coronal and sagittal reformats. For radiation dose reduction, the following was used: automated exposure control, adjustment of mA and/or kV according to patient size. COMPARISON: [facility], CT, CT HEAD/BRAIN WO CON, 02/16/2019, 8:21. FINDINGS: Image quality: Excellent. CSF spaces: Basal cisterns are patent. No extra-axial fluid collections. The ventricles are symmetric in size and shape. Brain: No intracranial bleeds or masses. There is cerebral volume loss for age, with resultant ventricular and sulcal prominence. There are periventricular and deep white matter chronic small vessel ischemic changes. There is intracranial internal carotid artery atherosclerosis. Skull and face: Calvarium and visualized facial bones appear intact, without suspicious lesions. Sinuses: Visualized sinuses and mastoids are clear. IMPRESSION: No acute intracranial abnormality. Dictated by: Anais Coronel M.D. on 05/06/2022 at 9:59 Approved by: Anais Coronel M.D. on 05/06/2022 at 9:59
--- NOTE | 2022-05-06 10:04 | DI.RAD.S_ITS ---
PROCEDURE: XR RIBS LT MIN 3V W CXR1V INDICATIONS: left rib pain after fall TECHNIQUE: 2 views of the left ribs were acquired, along with a single view chest. COMPARISON: [facility], , XR CHEST 1 VIEW, 04/17/2022, 11:17. FINDINGS: Surgical changes and devices: Left-sided pacer. Bones and chest wall: Ribs are suboptimally evaluated secondary to positioning and body habitus factors. No fractures or dislocations. No suspicious bony lesions. Overlying soft tissues appear unremarkable. Lungs and pleura: No pneumothorax. Small right pleural effusion. Moderate right greater than left bilateral mid and lower lung airspace opacity. Mediastinum: Mediastinal contours appear normal. Heart size is enlarged. IMPRESSION: 1. Suboptimal evaluation demonstrating no definite acute fracture. No osseous lesion. If symptoms and/or clinical suspicion for pathology persist, further assessment with repeat, or advanced imaging (e.g., CT, MRI, or bone scan) may be helpful for further assessment. 2. Bilateral pneumonia. Dictated by: Anais Coronel M.D. on 05/06/2022 at 10:40 Approved by: Anais Coronel M.D. on 05/06/2022 at 10:42
--- NOTE | 2022-05-06 10:41 | ED_ITS ---
HPI - Head Injury General Chief complaint: Head Injury Stated complaint: fell out of wheelchair hit head on blood thinners Time Seen by Provider: 05/06/22 09:29 Source: patient Mode of arrival: Wheelchair History of Present Illness HPI Narrative: 82-year-old male former smoker with extensive medical history including AFib on anticoagulation, ischemic cardiomyopathy, CHF, chronic renal insufficiency?had been on hospice but was just taken off to allow evaluation today. He lost his balance and fell from his motorized wheelchair and struck his head. He had been on Coumadin up until yesterday and is here for evaluation of a head injury while on anticoagulants. Also as a consequence of the fall he has some left anterior rib pain. He has had some generalized fatigue as of late and cough which is occasionally productive of yellowish sputum but no fever or chills. He has no nausea or vomiting. He denies any loss of consciousness or neck pain. He is activated as a modified trauma given fall with head injury and recent anticoagu lant use Related Data Home Medications Medication Instructions Recorded Confirmed atorvastatin 40 mg tablet (Lipitor) 40 mg OR QPM ##0 08/19/16 04/07/22 isosorbide mononitrate 30 mg 30 mg OR HS ##0 08/19/16 04/07/22 tablet,extended release 24 hr nitroglycerin 0.4 mg sublingual 1 tab sublingual PRN PRN Chest 08/19/16 04/07/22 tablet (Nitrostat) Pain ##0 aspirin 81 mg tablet,delayed 81 mg PO QDAY ##0 12/28/17 04/07/22 release multivitamin (Multiple Vitamins 1 tab PO QDAY ##0 12/28/17 04/07/22 tablet) albuterol sulfate 90 mcg/actuation 2 puff inhalation Q6H PRN 03/24/22 04/07/22 aerosol inhaler (Ventolin HFA) amiodarone 200 mg tablet 100 mg PO DAILY 03/24/22 04/07/22 febuxostat 80 mg tablet 80 mg PO DAILY 03/24/22 04/07/22 hydralazine 10 mg tablet 10 mg PO TID 03/24/22 04/07/22 metoprolol succinate 100 mg 50 mg PO DAILY 03/24/22 04/07/22 tablet,extended release 24 hr warfarin 1 mg tablet 1 mg PO 3XW 03/24/22 04/07/22 sacubitril 49 mg-valsartan 51 mg 0.5 tab PO BID 04/07/22 04/07/22 tablet (Entresto) Previous Rx's Medication Instructions Recorded cyanocobalamin (vitamin B-12) 1,000 mcg PO Q DAY #90 tabs 03/24/22 1,000 mcg tablet,extended release levothyroxine 25 mcg capsule 25 mcg PO DAILY #30 caps 03/24/22 torsemide 20 mg tablet 20 mg PO DAILY #60 tabs 03/24/22 amoxicillin 500 mg capsule 1,000 mg PO Q8H 5 days #30 caps 05/06/22 Allergies Allergy/AdvReac Type Severity Reaction Status Date / Time No Known Drug Allergies Allergy Verified 05/06/22 09:28 Review of Systems Review of Systems Narrative: GENERAL: See HPI HEENT: See HPI RESPIRATORY: See HPI CARDIOVASCULAR: Denies chest pain, palpitations, orthopnea, edema, GASTROINTESTINAL: Denies nausea, vomiting, abdominal pain, diarrhea, constipation, melena. : Denies dysuria, frequency, incontinence, hematuria, urinary retention. MUSCULOSKELETAL: denies weakness, joint pain, or bony pain SKIN: Denies rash, skin lesions, or other NEUROLOGIC: Denies weakness, headache, numbness, change in speech, confusion, seizures, incoordination. PSYCHIATRIC: No concerning psychosocial issues. 12 point review of systems is negative except for those stated above Patient History Medical History Afib Anemia CAD (coronary atherosclerotic disease) Gout Ischemic cardiomyopathy Pleural effusion Pleural effusion Surgical History Hx of CABG Family History Father Myocardial infarction Stroke Mother Colostomy and enterostomy complications Social History household members: none Smoking Status: Former smoker alcohol intake: former Smoking Status: Former smoker alcohol intake frequency: holidays/special occasions only Substance Use Type: does not use Exam Narrative Exam Narrative: GENERAL: [82] year old patient appears stated age. Well-developed patient, in mild distress. GCS 15 HEAD: Atraumatic. Normocephalic. No obvious hematoma or depressed skull fracture EYES: Pupils equal round and reactive. No hyphema Extraocular motions intact. No scleral icterus. No injection or drainage. ENT: Nose without bleeding, purulent drainage. No nasal septal hematoma Throat without erythema, tonsillar hypertrophy or exudate. Airway patent. NECK: Trachea midline. Non tender CARDIOVASCULAR: Regular rate and rhythm without murmurs, gallops, or rubs. RESPIRATORY: No significant increased work of breathing or use of accessory muscles, faint crackles in bilateral bases GASTROINTESTINAL: Abdomen soft, non-tender, nondistended. EXTREMITIES: 1+ pitting edema bilateral lower extremities BACK: Nontender without deformity or crepitance. No flank tenderness. NEURO: AOx3. SKIN: No rash or erythema of visible areas Initial Vital Signs Initial Vital Signs: Vital Signs Temperature 96.6 F L 05/06/22 09:23 Pulse Rate 131 H 05/06/22 09:23 Respiratory Rate 15 05/06/22 09:23 Blood Pressure 117/79 05/06/22 09:23 Pulse Oximetry 93 05/06/22 09:23 Oxygen Delivery Method 05/06/22 09:23 Course Course Course Narrative: Discussed with hospice intake, they can re-evaluate for re enrollment on Tuesday, also discussed with intake nurse, use of antibiotics for the treatment of outpatient community-acquired pneumonia is appropriate and not contrast to any of their plans Orders Ordered: ED Orders 05/06/22 09:32 CT head/brain wo con Stat 05/06/22 10:04 XR ribs LT min 3V w CXR1V Stat EKG-12 Lead Stat Vital Signs Vital signs: Vital Signs - 8 hr 05/06/22 09:23 05/06/22 11:03 Temperature 96.6 F L 97.6 F Pulse Rate 131 H 70 Respiratory Rate 15 14 Blood Pressure 117/79 128/74 Pulse Oximetry 93 92 Oxygen Delivery Method Room Air Room Air MDM - Head Injury Imaging Data CT scan - head: Radiologist's Impression: Close Ribs X-Ray (Signed) Anais Coronel - 05/06/[address] (Signed) Anais Coronel - 05/06/22 Chest X-Ray (Signed) Diego Castillo - 04/07/22 Telemetry Strips 04/07/22 Chest X-Ray (Signed) Rizwana Callahan - 03/24/22 Hip X-Ray (Signed) Roxanne Shelby - 07/14/21 Chest X-Ray (Signed) Branden Belle - 07/14/21 EKG Rpt. 12/11/19 Chest X-Ray (Signed) Rizwana Callahan - 12/11/19 Telemetry Strips 12/11/19 Elbow X-Ray (Signed) Lisa Sotong - 10/26/[address] (Signed) Sebastien Dewey - 02/16/19 Finger X-Ray (Signed) Rizwana Callahan - 02/16/19 Chest X-Ray (Signed) Armando Oro - 10/18/18 Chest X-Ray (Signed) Roxanne Shelby - 09/16/18 Chest X-Ray (Signed) Anais Coronel - 09/13/18 Thoracentesis Ultrasound (Signed) Israel Emerson - 07/18/18 Chest X-Ray (Signed) Shekhar Colin - 07/18/18 Telemetry Strips 07/17/18 Chest X-Ray (Signed) Roxanne Shelby - 07/17/18 Launch?[place] [address] CT Scan Report Signed Patient: Raymond Gamble MR#: [id number] : 1940 Acct:[id number] Age/Sex: 82 / M Date of Service: 05/06/22 Loc: Accession Number: [id number] ?? Procedure: CT head/brain wo con Ordering Provider: Les Morin D.O. PROCEDURE:? CT HEAD/BRAIN WO CON ? INDICATIONS:? fall with head injury ? TECHNIQUE:? Noncontrast 4.5 mm thick angled axial sections acquired from the foramen magnum to the vertex, with coronal and sagittal reformats.? For radiation dose reduction, the following was used:? automated exposure control, adjustment of mA and/or kV according to patient size.? ? COMPARISON:? [facility], CT, CT HEAD/BRAIN WO CON, 02/16/2019, 8:21. ? FINDINGS:? Image quality:? Excellent.? ? CSF spaces:? Basal cisterns are patent.? No extra-axial fluid collections.? The ventricles are symmetric in size and shape.? ? Brain:? No intracranial bleeds or masses.? There is cerebral volume loss for age, with resultant ventricular and sulcal prominence.? There are periventricular and deep white matter chronic small vessel ischemic changes.? There is intracranial internal carotid artery atherosclerosis.? ? Skull and face:? Calvarium and visualized facial bones appear intact, without suspicious lesions.? ? Sinuses:? Visualized sinuses and mastoids are clear.? ? IMPRESSION:? No acute intracranial abnormality. ? ? Dictated by: Anais Coronel M.D. on 05/06/2022 at 9:59 ? ? Approved by: Anais Coronel M.D. on 05/06/2022 at 9:59 ? Chest x-ray: Radiologist's Impression: [address] [address] XRay Report Signed Patient: Raymond Gamble MR#: [id number] : 1940 Acct:[id number] Age/Sex: 82 / M Date of Service: 05/06/22 Loc: ED Accession Number: [id number] ?? Procedure: XR ribs LT min 3V w CXR1V Ordering Provider: Les Morin D.O. PROCEDURE:? XR RIBS LT MIN 3V W CXR1V ? INDICATIONS:? left rib pain after fall ? TECHNIQUE:? 2 views of the left ribs were acquired, along with a single view chest.? ? COMPARISON:? [facility], CR, XR CHEST 1 VIEW, 04/17/2022, 11:17. ? FINDINGS:? ? Surgical changes and devices:? Left-sided pacer. ? Bones and chest wall:? Ribs are suboptimally evaluated secondary to positioning and body habitus factors.? No fractures or dislocations.? No suspicious bony lesions.? Overlying soft tissues appear unremarkable.? ? Lungs and pleura:? No pneumothorax.? Small right pleural effusion.? Moderate right greater than left bilateral mid and lower lung airspace opacity. ? Mediastinum:? Mediastinal contours appear normal.? Heart size is enlarged. ? IMPRESSION:? 1. Suboptimal evaluation demonstrating no definite acute fracture. No osseous lesion. If symptoms and/or clinical suspicion for pathology persist, further assessment with repeat, or advanced imaging (e.g., CT, MRI, or bone scan) may be helpful for further assessment. 2. Bilateral pneumonia. ? ? Dictated by: Anais Coronel M.D. on 05/06/2022 at 10:40 ? ? Approved by: Anais Coronel M.D. on 05/06/2022 at 10:42 ? MDM Narrative Medical decision making narrative: Patient had been on anticoagulants until yesterday as well as hospice, taken off to allow for evaluation of injuries related to his fall. Head CT is unremarkable, x-ray shows no rib injury or fracture though there is bilateral pneumonia. He has no significant work of breathing, antibiotics sent to his preferred pharmacy and return precautions discussed Discharge Plan Departure Patient Disposition: Home Clinical Impression: Contusion of scalp, Contusion of rib, Pneumonia Instructions: Pneumonia-Adult Activity Restrictions/Additional Instructions: *You have been diagnosed with [fall with head injury and rib contusion. As we discussed the CT scan is reassuring and there is no evidence of fracture or b leeding in your brain, also the chest x-ray shows no rib fracture though it does suggest a mild bilateral pneumonia] *What to do: *Please continue to take your regular medications as directed. [ x] New medication prescriptions sent to your pharmacy: [[facility] ] [ ] New medication written as a paper prescription [ ] No new medications given *Please follow up with your primary care provider in 2-3 days, call for an appointment. Let them know you were seen in the Emergency Department and that we ask that you be seen in follow up. We will electronically transmit a record of today's note if your PCP is in our system *If you do not have a primary care provider please contact the [facility] Resource line at [phone]. They will ask some questions about your medical history and help get you set up with a doctor in the community. *Return to Emergency Department if you should have any new, worsening or concerning symptoms, such as [fever greater than 101 F, shaking chills, worsening pain, persistent vomiting or other bothersome symptoms] Prescriptions: New amoxicillin 500 mg capsule 1,000 mg PO Q8H 5 Days Qty: 30 0RF No Action atorvastatin [Lipitor] 40 MG tablet 40 mg OR QPM Qty: 0 nitroglycerin [Nitrostat] 0.4 MG tablet, sublingual 1 tab Sublingual PRN PRN (Reason: Chest Pain) Qty: 0 isosorbide mononitrate 30 MG tablet extended release 24 hr 30 mg OR HS Qty: 0 multivitamin [Multiple Vitamins] 1 EACH tablet 1 tab PO QDAY Qty: 0 aspirin 81 MG tablet,delayed release (DR/EC) 81 mg PO QDAY Qty: 0 cyanocobalamin (vitamin B-12) 1,000 mcg tablet extended release 1,000 mcg PO Q DAY Qty: 90 0RF Entresto 49-51 mg tablet 0.5 tab PO BID amiodarone 200 mg tablet 100 mg PO DAILY febuxostat 80 mg tablet 80 mg PO DAILY hydralazine 10 mg tablet 10 mg PO TID metoprolol succinate 100 mg tablet extended release 24 hr 50 mg PO DAILY albuterol sulfate [Ventolin HFA] 90 mcg/actuation HFA aerosol inhaler 2 puff inhalation Q6H PRN warfarin 1 mg tablet 1 mg PO 3XW Rx Instructions: Take 1 tablet . Sun and 1/2 tablet T . torsemide 20 mg tablet 20 mg PO DAILY Qty: 60 5RF levothyroxine 25 mcg capsule 25 mcg PO DAILY Qty: 30 5RF Referrals: Cleve Saleem DO [Primary Care Provider] -
[2022-05-06 11:03] VITALS: BP 128/74; PULSE 70; RESP 14; TEMP 36.4; O2SAT 92
== END 2022-05-06 11:18 | disposition home or self-care (01) ==
PROVIDERS: Emergency Provider Emergency Medicine; Family Provider Family Medicine; PCP Family Medicine
DX: S00.03XA Contusion of scalp, initial encounter (principal); S20.212A Contusion of left front wall of thorax, initial encounter; W19.XXXA Unspecified fall, initial encounter; Z79.01 Long term (current) use of anticoagulants
CPT/HCPCS: 70450; 71101; 93005; 93010; 99281; 99284